=== PATIENT | male | born 1950 | race Caucasian/White ===

== ENCOUNTER 2018-09-17 17:58 | Inpatient (IN) | payer MEDICARE ==
[~2018-09-17] VITALS: Ht 182.9 cm; Wt 81.6 kg
[2018-09-17 20:00] VITALS: BP 143/81
[2018-09-17] MEDS ORDERED: ACETAMINOPHEN 325 MG TABLET PO PRN (20:00)
[2018-09-17] MEDS ORDERED: MAGNESIUM HYDROXIDE 30 ML UDC PO PRN (20:00)
[2018-09-17] MEDS ORDERED: MAG HYDROX/AL HYDROX/SIMETH 30 ML UDC PO PRN (20:00)
[2018-09-17] MEDS ORDERED: clonazePAM 0.5 MG TABLET PO PRN (20:00)
[2018-09-17] MEDS ORDERED: WARF5TAB77 PO (21:03)
[2018-09-17] MEDS ORDERED: ENOX40DI SQ (21:03)
[2018-09-17] MEDS ORDERED: CEFU500T66 PO ×2 (21:03→22:00)
[2018-09-17] MEDS ORDERED: MUPI15CR (21:03)
[2018-09-17] MEDS ORDERED: HYDR-3980 PO (21:03)
[2018-09-17] MEDS ORDERED: FAMO-131 PO (21:03)
[2018-09-17] MEDS ORDERED: FURO-145 PO (21:03)
[2018-09-17] MEDS ORDERED: LISI2.5T2 PO (21:03)
[2018-09-17] MEDS ORDERED: CARV3.12 PO (21:03)
[2018-09-17] MEDS ORDERED: NICO-677 TD (21:03)
[2018-09-17] MEDS ORDERED: PANT40TA2 PO (21:03)
[2018-09-17] MEDS ORDERED: AMOX-430 PO (21:03)
[2018-09-17] MEDS ORDERED: IPRA12.9 IH ×2 (21:03→22:00)
[2018-09-17] MEDS ORDERED: RIVA10TA PO (21:03)
[2018-09-17] MEDS ORDERED: FOLI1TAB16 PO (21:03)
[2018-09-17] MEDS ORDERED: [UNRECOGNIZED DRUG - CODE] PO (22:00)
[2018-09-17] MEDS ORDERED: DIPH-530 PO (22:00)
--- NOTE | 2018-09-18 00:23 | NUR ---
GPS/LEGAL COLLECTOR ADMISSION NOTES: RECEIVED 68YR. OLD MALE ON A 5150 HOLD FOR GD. PT. A/O X2. CONFUSED AND EASILY AGITATED. REDIRECTED. PT. ORIENTED TO UNIT POLICY, PROTOCOLS AND PROCEDURES. CALL ARNOLD WITHIN REACH AND BED ALARM ON FOR SAFETY. BELONGINGS LOGGED AND LOCKED IN PT. CABINET. MEDICAL AND PSYCH MADE AWARE OF PT. ADMISSION TO UNIT.
[2018-09-18 07:12] LABS: BASOPHILS % (AUTO) 0.3 % (0.0-2.0); EOSINOPHILS % (AUTO) 3.6 % (0.0-6.0); HEMATOCRIT 34 % (39-51); LYMPHOCYTES # (AUTO) 1.4 /CMM (0.8-4.8); LYMPHOCYTES % (AUTO) 16.6 % (20.0-44.0); MEAN CORPUSCULAR HGB CONC 33 g/dl (31.0-36.0); MEAN CORPUSCULAR VOLUME 81 fL (80-96); MONOCYTES # (AUTO) 0.8 /CMM (0.1-1.30); MONOCYTES % (AUTO) 9.1 % (2.0-12.0); NEUTROPHILS # (AUTO) 6.1 /CMM (1.8-8.9); NEUTROPHILS % (AUTO) 70.4 % (43.0-81.0); PLATELET COUNT (AUTO) 267 /CMM (150-450); RED BLOOD CELL COUNT(AUTO) 4.11 MIL/uL (4.5-6.0); WHITE BLOOD COUNT (AUTO) 8.7 K/uL (4.3-11.0)
[2018-09-18] MEDS ORDERED: IPRATROPIUM NEB FS 0.5 MG/2.5 ML AMPUL.NEB NEB PRN (07:30)
[2018-09-18 07:40] LABS: ALBUMIN 2.6 g/dL (3.4-5.0); BILIRUBIN,TOTAL 0.4 mg/dL (0.2-1.0); CALCIUM, SERUM 9.3 mg/dL (8.5-10.1); TOTAL PROTEIN, SERUM 7.3 g/dL (6.4-8.2)
[2018-09-18 07:41] LABS: CHOLESTEROL 109 mg/dL (<200); HDL CHOLESTEROL 27 mg/dL (40-60); LDL 75 mg/dL (0-99); TRIGLYCERIDES 68 mg/dL (30-150)
[2018-09-18 08:00] VITALS: BP 109/50
[2018-09-18] MEDS: FOLIC ACID 1 MG TABLET PO SCH (08:40)
[2018-09-18] MEDS: PANTOPRAZOLE 40 MG TABLET.DR PO SCH (08:40)
[2018-09-18] MEDS: NICOTINE PATCH (21MG) 21 MG PATCH.TD24 TD SCH (08:40)
[2018-09-18] MEDS: FAMOTIDINE (20 MG) 20 MG TABLET PO SCH (08:40)
[2018-09-18] MEDS: CEFUROXIME AXETIL 250 MG TABLET PO SCH ×2 (10:01→21:37)
--- NOTE | 2018-09-18 12:30 | NUR ---
INITIAL DISCHARGE PLAN: Patient wishes to be discharged to his home in [place]. Pt did not provide SW will address or additional information. Pt is confused, disoriented, and disorganized. Per hold, pt is homeless and needs placement. SW will help form a safe and proper discharge in collaboration with MD.
[2018-09-18 16:00] VITALS: BP 122/59
[2018-09-18] MEDS: RIVAROXABAN 10 MG TABLET PO SCH (16:16)
[2018-09-18 20:44] VITALS: BP 128/59
[2018-09-18] MEDS: OLANZAPINE 5 MG/TAB.RAPDIS PO SCH (21:37)
[2018-09-18] MEDS ORDERED: OLANZAPINE 5 MG/TAB.RAPDIS PO SCH (22:00)
--- NOTE | 2018-09-19 04:50 | NUR ---
GPS RN NOTE: PATIENT IN STABLE CONDITION, NO SOB, NO ACUTE DISTRESS, BREATHING EVEN AND UNLABORED, ENDORSED FOR CONTINUITY OF CARE
[2018-09-19 08:00] VITALS: BP 129/73
[2018-09-19] MEDS: FOLIC ACID 1 MG TABLET PO SCH (08:36)
[2018-09-19] MEDS: FAMOTIDINE (20 MG) 20 MG TABLET PO SCH (08:36)
[2018-09-19] MEDS: PANTOPRAZOLE 40 MG TABLET.DR PO SCH (08:36)
[2018-09-19] MEDS: NICOTINE PATCH (21MG) 21 MG PATCH.TD24 TD SCH (08:36)
[2018-09-19] MEDS: CEFUROXIME AXETIL 250 MG TABLET PO SCH ×2 (08:40→21:43)
[2018-09-19 16:04] VITALS: BP 123/73
[2018-09-19] MEDS: RIVAROXABAN 10 MG TABLET PO SCH (16:31)
[2018-09-19 20:00] VITALS: BP 140/77
[2018-09-19] MEDS: OLANZAPINE 5 MG/TAB.RAPDIS PO SCH (21:43)
[2018-09-20 08:06] VITALS: BP 131/69
[2018-09-20] MEDS: FAMOTIDINE (20 MG) 20 MG TABLET PO SCH (08:43)
[2018-09-20] MEDS: PANTOPRAZOLE 40 MG TABLET.DR PO SCH (08:43)
[2018-09-20] MEDS: CEFUROXIME AXETIL 250 MG TABLET PO SCH ×2 (08:43→20:52)
[2018-09-20] MEDS: FOLIC ACID 1 MG TABLET PO SCH (08:43)
[2018-09-20] MEDS: NICOTINE PATCH (21MG) 21 MG PATCH.TD24 TD SCH (08:44)
[2018-09-20] MEDS: OLANZAPINE 5 MG/TAB.RAPDIS PO SCH (16:29)
[2018-09-20 16:30] VITALS: BP 133/82
[2018-09-20] MEDS: RIVAROXABAN 10 MG TABLET PO SCH (16:30)
[2018-09-20 20:00] VITALS: BP 120/62
[2018-09-20] MEDS: TEMAZEPAM 7.5 MG CAPSULE PO PRN (20:54)
[2018-09-21 08:00] VITALS: BP 145/75
[2018-09-21] MEDS: OLANZAPINE 5 MG/TAB.RAPDIS PO SCH ×2 (08:41→16:37)
[2018-09-21] MEDS: FAMOTIDINE (20 MG) 20 MG TABLET PO SCH (08:41)
[2018-09-21] MEDS: NICOTINE PATCH (21MG) 21 MG PATCH.TD24 TD SCH (08:41)
[2018-09-21] MEDS: FOLIC ACID 1 MG TABLET PO SCH (08:41)
[2018-09-21] MEDS: PANTOPRAZOLE 40 MG TABLET.DR PO SCH (08:42)
[2018-09-21] MEDS: CEFUROXIME AXETIL 250 MG TABLET PO SCH ×2 (08:44→21:28)
[2018-09-21 16:00] VITALS: BP 116/52
[2018-09-21] MEDS: RIVAROXABAN 10 MG TABLET PO SCH (16:38)
[2018-09-21 20:53] VITALS: BP 104/51
[2018-09-21] MEDS: TEMAZEPAM 7.5 MG CAPSULE PO PRN (21:28)
[2018-09-21] MEDS: OLANZAPINE 5 MG TABLET PO SCH (22:14)
[2018-09-22 08:00] VITALS: BP 122/58
[2018-09-22] MEDS: NICOTINE PATCH (21MG) 21 MG PATCH.TD24 TD SCH (09:00)
[2018-09-22] MEDS: FOLIC ACID 1 MG TABLET PO SCH (09:09)
[2018-09-22] MEDS: OLANZAPINE 5 MG/TAB.RAPDIS PO SCH (09:09)
[2018-09-22] MEDS: PANTOPRAZOLE 40 MG TABLET.DR PO SCH (09:09)
[2018-09-22] MEDS: FAMOTIDINE (20 MG) 20 MG TABLET PO SCH (09:09)
[2018-09-22] MEDS: CEFUROXIME AXETIL 250 MG TABLET PO SCH ×2 (09:10→21:47)
[2018-09-22 16:10] VITALS: BP 103/58
[2018-09-22] MEDS: RIVAROXABAN 10 MG TABLET PO SCH (16:21)
[2018-09-22 20:01] VITALS: BP 129/66
[2018-09-22] MEDS: TEMAZEPAM 7.5 MG CAPSULE PO PRN (21:48)
[2018-09-22] MEDS: OLANZAPINE 5 MG TABLET PO SCH (21:48)
--- NOTE | 2018-09-23 02:06 | NUR ---
WAISTLINE JOINER OVERLOCK NOTES PT WOKE UP AND COMPLAINING OF ABDOMINAL PAIN. MAALOX GIVEN .PT TOLERATED WELL NO ASPIRATION NOTED. WILL CONTINUE MONITORING.
--- NOTE | 2018-09-23 02:10 | NUR ---
SKID ROAD MAN NOTES PT SEEMS ANXIOUS, KLONOPIN PO GIVEN ORDERED. SAFETY PRECAUTION IMPLEMENTED AND OBSERVED. KEPT HIM WARM AND COMFORTABLE AT ALL TIMES. WILL CONTINUE MONITORING.
[2018-09-23 08:00] VITALS: BP 121/73
[2018-09-23] MEDS: PANTOPRAZOLE 40 MG TABLET.DR PO SCH (08:27)
[2018-09-23] MEDS: FOLIC ACID 1 MG TABLET PO SCH (08:27)
[2018-09-23] MEDS: FAMOTIDINE (20 MG) 20 MG TABLET PO SCH (08:27)
[2018-09-23] MEDS: OLANZAPINE 5 MG/TAB.RAPDIS PO SCH (08:27)
[2018-09-23] MEDS: NICOTINE PATCH (21MG) 21 MG PATCH.TD24 TD SCH (08:27)
[2018-09-23] MEDS: CEFUROXIME AXETIL 250 MG TABLET PO SCH ×2 (08:39→21:26)
--- NOTE | 2018-09-23 10:47 | NUR ---
KALEB faxed SNF referral to CJ, hall coordinator at [facility] Address: [address] [place] [address] for review.
--- NOTE | 2018-09-23 10:55 | NUR ---
SW received a call from JAZMIN, neighborhood coordinator at [facility] Address: [address] [place] [address] stating pt has been accepted to the facility.
[2018-09-23 16:00] VITALS: BP 116/58
[2018-09-23] MEDS: RIVAROXABAN 10 MG TABLET PO SCH (16:57)
[2018-09-23 20:00] VITALS: BP 106/58
[2018-09-23] MEDS: OLANZAPINE 5 MG TABLET PO SCH (21:28)
[2018-09-24] MEDS: PANTOPRAZOLE 40 MG TABLET.DR PO SCH (07:28)
[2018-09-24 08:00] VITALS: BP 110/54
[2018-09-24] MEDS: CEFUROXIME AXETIL 250 MG TABLET PO SCH ×2 (08:12→20:33)
[2018-09-24] MEDS: FOLIC ACID 1 MG TABLET PO SCH (08:12)
[2018-09-24] MEDS: NICOTINE PATCH (21MG) 21 MG PATCH.TD24 TD SCH (08:12)
[2018-09-24] MEDS: FAMOTIDINE (20 MG) 20 MG TABLET PO SCH (08:13)
[2018-09-24] MEDS: OLANZAPINE 5 MG/TAB.RAPDIS PO SCH (08:16)
[2018-09-24 16:05] VITALS: BP 135/76
[2018-09-24] MEDS: RIVAROXABAN 10 MG TABLET PO SCH (16:36)
[2018-09-24 20:00] VITALS: BP 117/54
[2018-09-24] MEDS: OLANZAPINE 5 MG TABLET PO SCH (20:33)
[2018-09-25 08:00] VITALS: BP 123/65
[2018-09-25] MEDS: FAMOTIDINE (20 MG) 20 MG TABLET PO SCH (08:46)
[2018-09-25] MEDS: FOLIC ACID 1 MG TABLET PO SCH (08:46)
[2018-09-25] MEDS: PANTOPRAZOLE 40 MG TABLET.DR PO SCH (08:46)
[2018-09-25] MEDS: OLANZAPINE 5 MG/TAB.RAPDIS PO SCH (08:48)
[2018-09-25] MEDS: NICOTINE PATCH (21MG) 21 MG PATCH.TD24 TD SCH (08:48)
--- NOTE | 2018-09-25 12:30 | NUR ---
REPORT GIVEN TO ABELINO /RN ([facility])
--- NOTE | 2018-09-25 12:51 | NUR ---
D/C NOTES PT MEDICALLY CLEARED BY [facility]. PATIENT DENIES ANY SI/HI, VS ARE STABLE AND WITHIN NORMAL RANGE, NO DISTRESS NOTED AT THIS TIME. PT SKIN INTACT. ALL BELONGINGS RETURNED TO THE PATIENT.
--- NOTE | 2018-09-25 13:06 | NUR ---
DISCHARGE NOTE: Pt was discharged at 12:50pm via [facility] trip#[id number] to [facility] Address: [address] [place] [address] . Pt is homeless and has no family to notify. Pts mood was agitated as he did not want to go to the long term with congruent affect. Pt denied suicidal/homicidal ideations and denied visual/auditory hallucinations. Pt will continue psychiatric treatment and address his substance use with Psychiatrist: Dr. Menchaca Address: [address] [address] and be under the care of Full Stack Java Developer: Dr Barrientos Address: [address] [address] [phone]. The multidisciplinary exitcare form was done, printed, signed, and given to the patient.
--- NOTE | 2018-10-09 14:59 | NUR ---
15 DAY SUBSTANCE ABUSE FOLLOW-UP: Excluded due to D/C to SNF.
== END 2018-09-25 12:50 | DRG 885 ==
LOC: GPS 19:16
PROVIDERS: ADMIT Psychiatry & Neurology Psychiatry; ATTEND Psychiatry & Neurology Psychiatry
DX: F29 Unspecified psychosis not due to a substance or known physiological condition (principal); D68.59 Other primary thrombophilia; I82.403 Acute embolism and thrombosis of unspecified deep veins of lower extremity, bilateral; D68.51 Activated protein C resistance; J44.9 Chronic obstructive pulmonary disease, unspecified; F03.90 Unspecified dementia, unspecified severity, without behavioral disturbance, psychotic disturbance, mood disturbance, and anxiety; Z87.01 Personal history of pneumonia (recurrent); Z59.0 Homelessness; D63.8 Anemia in other chronic diseases classified elsewhere; I48.91 Unspecified atrial fibrillation; I25.10 Atherosclerotic heart disease of native coronary artery without angina pectoris; I10 Essential (primary) hypertension; Z72.0 Tobacco use
CPT/HCPCS: 36415; 80053-TC; 80061-TC; 85025-TC; 85610-TC; 87081-TC

== ENCOUNTER 2019-09-28 21:35 | Inpatient (IN) | payer MEDICARE, OTHER ==
[~2019-09-28] VITALS: Ht 182.9 cm; Wt 83.5 kg
[~2019-09-28 21:35] MED LIST: CEFU500T66 PO; DIPH-530 PO; FAMO-131 PO; FOLI1TAB16 PO; IPRA12.9 IH; NICO-677 TD; PANT40TA2 PO; RIVA10TA PO; [UNRECOGNIZED DRUG - CODE] PO
--- NOTE | 2019-09-28 21:35 | NUR ---
BIB PRIVATE AMBULANCE FROM [facility] ADM. PT ON 5150 HOLD. PER REPORT PT WAS AGITATED @ THE FACILITY, PT AWAKE, ALERT, -SOB, NAD NOTED, VSS, PENDING MD AMIN
[2019-09-28 22:22] LABS: BASOPHILS % (AUTO) 0.4 % (0.0-2.0); EOSINOPHILS % (AUTO) 1.6 % (0.0-6.0); HEMATOCRIT 38 % (39-51); HEMOGLOBIN 12.4 g/dL (13.5-17.5); LYMPHOCYTES # (AUTO) 1.2 /CMM (0.8-4.8); LYMPHOCYTES % (AUTO) 12.7 % (20.0-44.0); MEAN CORPUSCULAR HGB CONC 33 g/dl (31.0-36.0); MEAN CORPUSCULAR VOLUME 86 fL (80-96); MONOCYTES # (AUTO) 0.8 /CMM (0.1-1.30); MONOCYTES % (AUTO) 8.4 % (2.0-12.0); NEUTROPHILS # (AUTO) 7.1 /CMM (1.8-8.9); NEUTROPHILS % (AUTO) 76.9 % (43.0-81.0); PLATELET COUNT (AUTO) 193 /CMM (150-450); RED BLOOD CELL COUNT(AUTO) 4.43 MIL/uL (4.5-6.0); WHITE BLOOD COUNT (AUTO) 9.3 K/uL (4.3-11.0)
[2019-09-28 22:25] LABS: ALANINE AMINOTRANSFERASE 22 U/L (12-78); ALBUMIN 3.3 g/dL (3.4-5.0); ALCOHOL, BLOOD < 3 mg/dL (0-0); ALKALINE PHOSPHATASE 90 U/L (46-116); ASPARTATE AMINOTRANSFERASE 25 U/L (15-37); BILIRUBIN,DIRECT 0.2 mg/dL (0.0-0.2); BILIRUBIN,TOTAL 0.5 mg/dL (0.2-1.0); CALCIUM, SERUM 9.1 mg/dL (8.5-10.1); CARBON DIOXIDE 28 mmol/L (21-32); CHLORIDE 104 mmol/L (98-107); CREATININE 1.2 mg/dL (0.6-1.3); GLUCOSE 81 mg/dL (74-106); SODIUM SERUM 140 mmol/L (136-145); TOTAL PROTEIN, SERUM 7.2 g/dL (6.4-8.2); UREA NITROGEN, BLOOD 23 mg/dL (7-18)
[2019-09-28 22:29] LABS: ACETAMINOPHEN 0 ug/ml (10-30); SALICYLATE 1.5 mg/dL (2.8-20.0)
[2019-09-28 22:38] LABS: APPEARANCE,URINE Clear (CLEAR); BILIRUBIN,URINE Negative (NEGATIVE); BLOOD, URINE Negative Ery/uL (NEGATIVE); COLOR,URINE Yellow (YELLOW); KETONES,URINE Negative (NEGATIVE); LEUKOCYTE ESTERASE ,URINE Negative (NEGATIVE); NITRITE, URINE Negative (NEGATIVE); PROTEIN,URINE Negative (NEGATIVE); UGLUCOSE Negative (NEGATIVE)
[2019-09-28] MEDS ORDERED: HALO5TAB8 PO (23:33)
[2019-09-28] MEDS ORDERED: ASPI-1169 PO (23:33)
[2019-09-28] MEDS ORDERED: CLOP75TA15 PO (23:33)
[2019-09-28] MEDS ORDERED: METO25TA6 PO (23:33)
[2019-09-28] MEDS ORDERED: BENZ1TAB7 PO (23:33)
[2019-09-28] MEDS ORDERED: ATOR80TA PO (23:33)
--- NOTE | 2019-09-28 23:33 | NUR ---
REPORT GIVEN TO TERRY AGUIRRE FOR DEVON PT WILL BE TRANSPORTED TO [address] [place] [address]
[2019-09-29] MEDS ORDERED: BLOOD SUGAR DIAGNOSTIC 1 EACH STRIP IN ONE
[2019-09-29] MEDS ORDERED: ACETAMINOPHEN 325 MG TABLET PO PRN
[2019-09-29] MEDS ORDERED: MAG HYDROX/AL HYDROX/SIMETH 30 ML UDC PO PRN
[2019-09-29] MEDS ORDERED: MAGNESIUM HYDROXIDE 30 ML UDC PO PRN
[2019-09-29] MEDS ORDERED: LORAZEPAM 0.5 MG TABLET PO PRN
--- NOTE | 2019-09-29 00:04 | NUR ---
GPS/RN ADMITTED 69 Y/O MALE PATIENT FROM [facility], INITIALLY FROM [facility] ADMITTED TO GPS ON 5150 HOLD, PER HOLD DANGER TO SELF, UNPREDICTABLE BEHAVIOR, AGGRESSIVE TO STAFF. UPON FACE TO FACE ASSESSMENT, PATIENT WAS A&O X1, ANXIOUS, DISORIENTED , DISHEVELED, REFUSED ABOUT THE REASON FOR HIS BEHAVIOR. PATIENT REFUSED THE INITIAL BLOOD SUGAR CHECK, SKIN ASSESSMENT, REFUSED TO CHANGE CLOTHES TO HOSPITAL GOWN, REFUSED TO SIGN ADMISSION CONSENT PAPERS, EXPLAINED ITS RISKS AND BENEFITS,PATIENT VERBALIZED UNDERSTANDING BUT STILL REFUSED, MD AWARE AND NOTIFIED OF THE ADMISSION. THE ADMISSION BELONGINGS AND CONTRABAND WERE DONE. NURSING ASSESSMENT DONE, PATIENT'S RIGHTS DISCUSSED, PROVIDED PATIENT WITH HANDBOOK AND MEDICATIONS GUIDE, ENVIRONMENTAL SAFETY CHECK DONE. ENCOURAGED PATIENT TO VERBALIZE ANY FEELING OF CONCERN TO THE STAFF, ORIENT TO UNIT POLICY, NO ACUTE DISTRESS NOTED AT THIS TIME, VITAL SIGNS WNL, DENIES ANY PAIN, WILL CONTINUE TO MONITOR FOR Q 15 SAFETY AND BEHAVIOR.
[2019-09-29 00:40] VITALS: BP 134/80
--- NOTE | 2019-09-29 02:01 | NUR ---
GPS/RN CALLED AND SPOKE TO MANOJ ALVAREZ NP, RE: HOME MEDS RECONCILIATION.
[2019-09-29] MEDS: BENZTROPINE MESYLATE (1 MG) 1 MG TABLET PO SCH ×5 (02:30→16:25)
[2019-09-29] MEDS: ATORVASTATIN 40 MG TABLET PO SCH ×3 (02:30→22:09)
--- NOTE | 2019-09-29 06:35 | NUR ---
GPS/RN PER FILM PROCESSING SUPERVISOR, PATIENT REFUSED BLOOD DRAW. WILL ENDORSE TO NEXT RN TO F/U.
[2019-09-29 08:00] VITALS: BP 124/64
[2019-09-29] MEDS: CLOPIDOGREL BISULFATE 75 MG TABLET PO SCH (08:47)
[2019-09-29] MEDS: ASPIRIN 81 MG TAB.CHEW PO SCH (08:47)
[2019-09-29] MEDS: METOPROLOL TARTRATE 25 MG TABLET PO SCH ×2 (08:47→16:37)
[2019-09-29] MEDS: RIVAROXABAN 10 MG TABLET PO SCH (08:52)
[2019-09-29 12:30] LABS: BILIRUBIN,TOTAL 0.5 mg/dL (0.2-1.0); CALCIUM, SERUM 8.7 mg/dL (8.5-10.1); CREATININE 1.1 mg/dL (0.6-1.3); POTASSIUM 3.7 mmol/L (3.5-5.1); TOTAL PROTEIN, SERUM 6.5 g/dL (6.4-8.2)
--- NOTE | 2019-09-29 14:20 | NUR ---
Facility Contact: KALEB called [facility] ([phone]) and spoke to Faustina in the Admissions Department who stated that she is unsure if the pt can return and stated that she would need to speak to her see supervisor and then will call the SW back.
--- NOTE | 2019-09-29 14:50 | NUR ---
Group Note: SW encouraged pt to participate in group on 09/29/19 at 2pm discussing discharge planning. Pt appeared to be confused and disoriented and was unable to participate group therapy. Pt stated that he does not know where he is or where he came from. SW stated that he came from a SNF and the SW will assist in discharging him to one.
--- NOTE | 2019-09-29 15:13 | NUR ---
Initial Discharge Plan: Pt currently resides at [facility] located at [address] [address]; ([phone]). Per pt, he is uncertain about where he wants to be discharged to. Per Faustina at the facility, she is uncertain if the locker room supervisor will accept the pt back. SW will work with the MD and the pt regarding appropriate discharge planning. SW will form a safe and proper discharge.
[2019-09-29 16:00] VITALS: BP 133/80
[2019-09-29] MEDS: HALOPERIDOL 5 MG TABLET PO SCH (16:26)
[2019-09-29 19:38] VITALS: BP 122/70
--- NOTE | 2019-09-30 02:42 | NUR ---
PT REFUSED PM MED LIPITOR 40MG 2 TABS 80MG. REFUSED SKIN ASSESSMENT. ISOLATIVE AND WITHDRAWN TO ROOM. WILL CONTINUE TO MONITOR.
[2019-09-30 08:00] VITALS: BP 136/67
[2019-09-30] MEDS: CLOPIDOGREL BISULFATE 75 MG TABLET PO SCH (08:06)
[2019-09-30] MEDS: ASPIRIN 81 MG TAB.CHEW PO SCH (08:06)
[2019-09-30] MEDS: HALOPERIDOL 5 MG TABLET PO SCH ×2 (08:06→16:32)
[2019-09-30] MEDS: BENZTROPINE MESYLATE (1 MG) 1 MG TABLET PO SCH ×3 (08:06→16:32)
[2019-09-30] MEDS: METOPROLOL TARTRATE 25 MG TABLET PO SCH ×2 (08:06→16:33)
[2019-09-30] MEDS: RIVAROXABAN 10 MG TABLET PO SCH (08:10)
--- NOTE | 2019-09-30 11:25 | NUR ---
Facility Contact: SW called [facility] ([phone]) and spoke to Faustina who stated that she still needs to verify with her special services supervisor. SW urged her to speak to the special services supervisor as soon as possible and inform the SW.
--- NOTE | 2019-09-30 14:37 | NUR ---
Facility Contact: Ivan from [facility] ([phone]) contacted the and stated that the pt will have to be evaluated to return to their facility. He stated that the pt will be accepted to alternative [facility] facilities because he has Medicare days and does not require Part B to be admitted.
[2019-09-30 16:00] VITALS: BP 127/79
[2019-09-30 20:00] VITALS: BP 117/67
[2019-09-30] MEDS: ATORVASTATIN 40 MG TABLET PO SCH (21:43)
[2019-09-30] MEDS: TEMAZEPAM 7.5 MG CAPSULE PO PRN (21:44)
[2019-09-30 22:11] VITALS: BP 117/67
[2019-10-01 08:00] VITALS: BP 123/51
[2019-10-01] MEDS: ASPIRIN 81 MG TAB.CHEW PO SCH (08:06)
[2019-10-01] MEDS: HALOPERIDOL 5 MG TABLET PO SCH ×2 (08:06→17:07)
[2019-10-01] MEDS: BENZTROPINE MESYLATE (1 MG) 1 MG TABLET PO SCH ×3 (08:06→17:07)
[2019-10-01] MEDS: METOPROLOL TARTRATE 25 MG TABLET PO SCH ×2 (08:06→16:58)
[2019-10-01] MEDS: CLOPIDOGREL BISULFATE 75 MG TABLET PO SCH (08:07)
[2019-10-01] MEDS: RIVAROXABAN 10 MG TABLET PO SCH (08:07)
--- NOTE | 2019-10-01 10:35 | NUR ---
WOUND CARE CONSULT: PT PRESENTS CONTINENT AND INDEPENDENT WITH BED MOBILITY AND HAVING RT HAND SKIN TEAR, PRESENT ON ADMISSION. RECOMMENDATIONS MADE FOR WOUND CARE. DISCUSSED WITH NURSING STAFF. WILL SEE PRN. ZUNIGA IN AGREEMENT WITH PLAN OF CARE. CURRENT PETROS SCORE IS 17. Addendum: 10/01/19 at 1036 by JERED ROMAN WNDNU Amended: Links added.
[2019-10-01 16:00] VITALS: BP 100/58
[2019-10-01 20:12] VITALS: BP 100/52
[2019-10-01] MEDS: ATORVASTATIN 40 MG TABLET PO SCH (21:14)
[2019-10-01] MEDS: TEMAZEPAM 7.5 MG CAPSULE PO PRN (21:17)
[2019-10-02 08:00] VITALS: BP 117/60
[2019-10-02] MEDS: HALOPERIDOL 5 MG TABLET PO SCH ×2 (09:00→13:28)
[2019-10-02] MEDS: METOPROLOL TARTRATE 25 MG TABLET PO SCH ×2 (10:44→12:31)
[2019-10-02] MEDS: ASPIRIN 81 MG TAB.CHEW PO SCH ×3 (10:45→13:26)
[2019-10-02] MEDS: RIVAROXABAN 10 MG TABLET PO SCH (10:45)
[2019-10-02] MEDS: CLOPIDOGREL BISULFATE 75 MG TABLET PO SCH ×3 (10:46→13:25)
[2019-10-02] MEDS: BENZTROPINE MESYLATE (1 MG) 1 MG TABLET PO SCH ×3 (10:46→17:52)
--- NOTE | 2019-10-02 14:41 | NUR ---
Patient remains isolative to room and staying in bed, compliant with morning medication regimen. Breakfast and lunch intake was 90 to 100%, encouraged to sit on side of bed for lunch, complied for short interval. Some confusion noted but no aggressive behavior and no throwing of objects at others. Encouraged to sit up in a chair for a short interval, was agreeable but didn't sit up will encourage to sit up for dinner. Will monitor for safety and changes in behavior.
[2019-10-02 16:00] VITALS: BP 121/69
[2019-10-02 20:58] VITALS: BP 112/60
[2019-10-02] MEDS: ATORVASTATIN 40 MG TABLET PO SCH (21:40)
[2019-10-02] MEDS: TEMAZEPAM 7.5 MG CAPSULE PO PRN (22:48)
[2019-10-03 08:00] VITALS: BP 134/57
[2019-10-03] MEDS: BENZTROPINE MESYLATE (1 MG) 1 MG TABLET PO SCH ×3 (09:41→17:54)
[2019-10-03] MEDS: HALOPERIDOL 5 MG TABLET PO SCH ×2 (09:41→17:54)
[2019-10-03] MEDS: RIVAROXABAN 10 MG TABLET PO SCH (09:41)
[2019-10-03] MEDS: METOPROLOL TARTRATE 25 MG TABLET PO SCH ×2 (09:41→17:00)
[2019-10-03 16:00] VITALS: BP 100/57
[2019-10-03 19:58] VITALS: BP 110/52
[2019-10-03] MEDS: TEMAZEPAM 7.5 MG CAPSULE PO PRN (21:28)
[2019-10-03] MEDS: ATORVASTATIN 40 MG TABLET PO SCH (21:28)
--- NOTE | 2019-10-03 22:04 | NUR ---
patient refused skin picture to be taken .
[2019-10-04 08:00] VITALS: BP 110/53
[2019-10-04] MEDS: METOPROLOL TARTRATE 25 MG TABLET PO SCH ×2 (09:00→17:31)
[2019-10-04] MEDS: RIVAROXABAN 10 MG TABLET PO SCH (09:02)
[2019-10-04] MEDS: BENZTROPINE MESYLATE (1 MG) 1 MG TABLET PO SCH ×3 (09:03→17:31)
[2019-10-04] MEDS: ASPIRIN 81 MG TAB.CHEW PO SCH (09:03)
[2019-10-04] MEDS: CLOPIDOGREL BISULFATE 75 MG TABLET PO SCH (09:03)
[2019-10-04] MEDS: HALOPERIDOL 5 MG TABLET PO SCH ×2 (09:03→17:31)
--- NOTE | 2019-10-04 09:25 | NUR ---
SNF Referral: KALEB faxed a referral to [facility] with attn to Werner to the fax number: [phone].
[2019-10-04 16:00] VITALS: BP 130/67
--- NOTE | 2019-10-04 19:25 | NUR ---
RN NOTES: PT. REFUSED SKIN ASSESSMENT AND PICTURES TO BE TAKEN , VISIBAL AREA NOTED ON RIGHT ARM/ HAND, LEFT ARM/HAND SCRATCHES SCABS SKIN DISCOLORATIONS AND FORE HEAD DRYNESS AND REDNESS, BUT PT. STRONGLY REFUSING FULL BODY SKIN ASSEMENT, ENCOURAGED X 3 STILL REFUSED,WILL CONTINUITY WITH CARE.
[2019-10-04 20:33] VITALS: BP 123/72
[2019-10-04] MEDS: ATORVASTATIN 40 MG TABLET PO SCH (21:38)
[2019-10-04] MEDS: TEMAZEPAM 7.5 MG CAPSULE PO PRN (23:16)
[2019-10-05 08:00] VITALS: BP 115/66
[2019-10-05] MEDS: ASPIRIN 81 MG TAB.CHEW PO SCH (08:23)
[2019-10-05] MEDS: HALOPERIDOL 5 MG TABLET PO SCH ×2 (08:23→17:50)
[2019-10-05] MEDS: BENZTROPINE MESYLATE (1 MG) 1 MG TABLET PO SCH ×4 (08:23→17:52)
[2019-10-05] MEDS: METOPROLOL TARTRATE 25 MG TABLET PO SCH ×2 (08:25→17:00)
[2019-10-05] MEDS: CLOPIDOGREL BISULFATE 75 MG TABLET PO SCH (08:37)
[2019-10-05] MEDS: RIVAROXABAN 10 MG TABLET PO SCH (08:37)
[2019-10-05 16:00] VITALS: BP 117/59
--- NOTE | 2019-10-05 16:10 | NUR ---
SNF Contact: Roxanne ([phone]) from [facility] stated that the pt was not accepted to their facility due to aggressive behavior. SW stated that the pt has not been aggressive for over one week.
[2019-10-05 20:19] VITALS: BP 105/45
[2019-10-05] MEDS: ATORVASTATIN 40 MG TABLET PO SCH (21:20)
[2019-10-06 08:00] VITALS: BP 106/64
[2019-10-06] MEDS: BENZTROPINE MESYLATE (1 MG) 1 MG TABLET PO SCH ×3 (08:07→16:12)
[2019-10-06] MEDS: METOPROLOL TARTRATE 25 MG TABLET PO SCH ×2 (08:09→16:12)
[2019-10-06] MEDS: HALOPERIDOL 5 MG TABLET PO SCH ×2 (08:10→16:12)
[2019-10-06] MEDS: CLOPIDOGREL BISULFATE 75 MG TABLET PO SCH (08:10)
[2019-10-06] MEDS: ASPIRIN 81 MG TAB.CHEW PO SCH (08:10)
[2019-10-06] MEDS: RIVAROXABAN 10 MG TABLET PO SCH (08:18)
--- NOTE | 2019-10-06 13:07 | NUR ---
SNF Referral: KALEB faxed a referral to [facility] with attn to Antwon and JAZMIN to the fax number: [phone].
--- NOTE | 2019-10-06 15:15 | NUR ---
Group Note: SW encouraged pt to participate in group on 10/07/19 at 2pm discussing discharge planning. Pt appeared to be confused and disoriented and was unable to participate group therapy. Pt stated that he was told that he came from a facility called [facility] but the SW informed him that he cannot return there. SW stated that the pt was accepted to [facility] and stated that he will be discharged the following day. Pt stated that he has a home in [place] but the SW stated that the discharge recommendation is for him to be placed in a higher level of care compared to his home with self care. Addendum: 10/07/19 at 0855 by MONICA MANUEL 10/06/19
[2019-10-06 16:00] VITALS: BP 120/75
--- NOTE | 2019-10-06 16:17 | NUR ---
SNF Contact: Micaela ([phone]) from [facility] called the SW and stated that the pt was accepted to their facility. SW stated that the pt will be discharged the following day.
[2019-10-06 20:04] VITALS: BP 105/51
[2019-10-06] MEDS: ATORVASTATIN 40 MG TABLET PO SCH (21:42)
[2019-10-06 22:00] VITALS: BP 110/65
--- NOTE | 2019-10-07 00:01 | NUR ---
RN NOTES : PT. C/O ANXIETY , RESTLESS, ATIVAN 0.5 MG PO PRN GIVEN PER PT. REQUEST , WILL CONTINUE TO MONITOR.
[2019-10-07 08:00] VITALS: BP 107/52
[2019-10-07] MEDS: ASPIRIN 81 MG TAB.CHEW PO SCH (08:39)
[2019-10-07] MEDS: CLOPIDOGREL BISULFATE 75 MG TABLET PO SCH (08:39)
[2019-10-07 08:40] VITALS: BP 107/52
[2019-10-07] MEDS: BENZTROPINE MESYLATE (1 MG) 1 MG TABLET PO SCH ×2 (08:40→12:43)
[2019-10-07] MEDS: METOPROLOL TARTRATE 25 MG TABLET PO SCH (08:40)
[2019-10-07] MEDS: HALOPERIDOL 5 MG TABLET PO SCH (08:40)
[2019-10-07] MEDS: RIVAROXABAN 10 MG TABLET PO SCH (08:44)
--- NOTE | 2019-10-07 09:04 | NUR ---
DR. PARTIDA GAVE AN ORDER TO D/C HOLD AND D/C TO [facility]. TO SAME AND TO CONTINUE PRN FOR 10 DAYS AND TO FOLLOW UP WITH PSYCH AND MEDICAL DOCOTRS.
--- NOTE | 2019-10-07 13:21 | NUR ---
Discharge Note: Pt was discharged to [facility] ([facility]) located at [address] [place] [address]; ([phone]). Pt was transported via [facility] at 2PM. Pt does not have any family to contact. Upon discharge, the pt appeared to be in a manic mood and presented with a distressed affect. Pt appeared to be paranoid and stated, My father is at my house and he wants to hurt me. Pt denied both suicidal and homicidal ideation as well as auditory and visual hallucinations. Pt will continue to be under the care of his psychiatrist, Dr. Menchaca, [place] at [address] [place] [address]; and his restaurant operations manager, Dr. Barrientos, located at [address] [place] [address]; .
--- NOTE | 2019-10-07 15:00 | NUR ---
PATIENT IS A 69 YEAR OLD MALE DISCHARGED TO [facility] ([facility]). PATIENT IS IN STABLE CONDITION. VSS. NO ACUTE DISTRESS NOTED. NO COMPLAINTS. COMPLIANT WITH MEDICATION MANAGEMENT. COOPERATIVE WITH PLAN OF CARE. PSYCHIATRIC TREATMENT PLANS MET. MEDICAL TREATMENT PLANS DEFERRED FOR CONTINUAL MONITORING. DENIES SI/HI VAH AT THE TIME OF DISCHARGE. PATIENT REFUSED SKIN ASSESSMENT. RECONCILED MEDICATIONS WITH DR PARTIDA AND DR GUY. DISCHARGE PAPERWORK SIGNED. TO FOLLOW UP WITH PSYCHIATRIST AND LEADERSHIP PROGRAM INTERNSHIP WITHIN 1 WEEK. PATIENT LEFT THE [facility] VIA AMBULANCE. TRIP [phone].
== END 2019-10-07 15:00 | DRG 885 ==
LOC: ER 21:36 → GPS 22:47
PROVIDERS: ADMIT Psychiatry & Neurology Psychiatry; ATTEND Nurse Practitioner Acute Care
DX: F29 Unspecified psychosis not due to a substance or known physiological condition (principal); F03.90 Unspecified dementia, unspecified severity, without behavioral disturbance, psychotic disturbance, mood disturbance, and anxiety; I25.10 Atherosclerotic heart disease of native coronary artery without angina pectoris; E11.9 Type 2 diabetes mellitus without complications; Z86.718 Personal history of other venous thrombosis and embolism; I48.0 Paroxysmal atrial fibrillation; Z87.01 Personal history of pneumonia (recurrent); I25.2 Old myocardial infarction; E78.00 Pure hypercholesterolemia, unspecified; J44.9 Chronic obstructive pulmonary disease, unspecified; I10 Essential (primary) hypertension
CPT/HCPCS: 36415; 80048-TC; 80053-TC; 80061-TC; 80076-TC; 80305; 81000-TC; 85025-TC; 87081-TC; 97116-TC; 97530-TC; G0480

== ENCOUNTER 2020-05-28 09:14 | Inpatient (IN) | payer MEDICARE, OTHER ==
[~2020-05-28] VITALS: Ht 170.2 cm; Wt 103.4 kg
[~2020-05-28 09:14] MED LIST changes: +ASPI-1169 PO; +ATOR80TA PO; +BENZ1TAB7 PO; -CEFU500T66 PO; +CLOP75TA15 PO; -DIPH-530 PO; -FAMO-131 PO; -FOLI1TAB16 PO; +HALO5TAB8 PO; -IPRA12.9 IH; +METO25TA6 PO; -NICO-677 TD; -PANT40TA2 PO; -[UNRECOGNIZED DRUG - CODE] PO
--- NOTE | 2020-05-28 09:37 | NUR ---
patient bib private ambulance from [facility], c/o left leg edema and sent by PMD due to DVT and for further evaluation. On room air, breathing evenly and unlabored. connected to the monitor and pulse ox. kept comfortable, will continue to monitor accordingly.
--- NOTE | 2020-05-28 09:38 | NUR ---
IV access initiated and blood drawned and sent to lab
[2020-05-28 09:42] LABS: BASOPHILS % (AUTO) 0.2 % (0.0-2.0); EOSINOPHILS % (AUTO) 3.8 % (0.0-6.0); HEMATOCRIT 38 % (39-51); HEMOGLOBIN 12.4 g/dL (13.5-17.5); LYMPHOCYTES # (AUTO) 1.5 /CMM (0.8-4.8); LYMPHOCYTES % (AUTO) 21.5 % (20.0-44.0); MEAN CORPUSCULAR HGB CONC 33 g/dl (31.0-36.0); MEAN CORPUSCULAR VOLUME 88 fL (80-96); MONOCYTES # (AUTO) 0.7 /CMM (0.1-1.30); MONOCYTES % (AUTO) 10.9 % (2.0-12.0); NEUTROPHILS # (AUTO) 4.3 /CMM (1.8-8.9); NEUTROPHILS % (AUTO) 63.6 % (43.0-81.0); PLATELET COUNT (AUTO) 178 /CMM (150-450); RED BLOOD CELL COUNT(AUTO) 4.34 MIL/uL (4.5-6.0); WHITE BLOOD COUNT (AUTO) 6.8 K/uL (4.3-11.0)
[2020-05-28] MEDS ORDERED: ASPI-1420 PO (09:43)
[2020-05-28 09:49] LABS: CALCIUM, SERUM 9.2 mg/dL (8.5-10.1); CREATININE 1.3 mg/dL (0.6-1.3); POTASSIUM 4.1 mmol/L (3.5-5.1)
--- NOTE | 2020-05-28 09:49 | NUR ---
ulrasound tech at bedside for exam
--- NOTE | 2020-05-28 10:09 | NUR ---
called [facility] for admission
--- NOTE | 2020-05-28 10:49 | NUR ---
got bed 250
[2020-05-28] MEDS ORDERED: HEPARIN INFUSION/D5W 500 ML IV PRN (11:00)
--- NOTE | 2020-05-28 11:01 | NUR ---
report given to Nallely AGUIRRE for dewayne
--- NOTE | 2020-05-28 11:22 | NUR ---
COVID TEST: NEGATIVE
[2020-05-28] MEDS ORDERED: HEPARIN SODIUM, PORCINE 5000 UNITS/1 ML VIAL ONE (11:26)
[2020-05-28] MEDS ORDERED: HEPARIN SODIUM, PORCINE 5000 UNITS/1 ML VIAL IV ONE (11:30)
[2020-05-28] MEDS ORDERED: ACETAMINOPHEN 325 MG TABLET PO PRN (11:30)
[2020-05-28] MEDS ORDERED: HYDROCODONE/APAP 5/325MG TABLET PO PRN (11:30)
[2020-05-28] MEDS ORDERED: ONDANSETRON HCL/PF 4 MG/2 ML VIAL IVP PRN (11:30)
[2020-05-28] MEDS ORDERED: MAG HYDROX/AL HYDROX/SIMETH 30 ML UDC PO PRN (11:30)
[2020-05-28] MEDS ORDERED: Z GUARD REMEDY 2 OZ OINT TP PRN (11:30)
[2020-05-28] MEDS ORDERED: MAGNESIUM HYDROXIDE 30 ML UDC PO PRN (11:30)
[2020-05-28 11:54] LABS: ALBUMIN 3.5 g/dL (3.4-5.0); BILIRUBIN,DIRECT 0.1 mg/dL (0.0-0.2); BILIRUBIN,TOTAL 0.5 mg/dL (0.2-1.0); TOTAL PROTEIN, SERUM 7.3 g/dL (6.4-8.2)
--- NOTE | 2020-05-28 11:55 | NUR ---
Wheeled patient via gurney accompanied by RN and emt in no distress. RN at bedside to assume care.
[2020-05-28] MEDS ORDERED: DEXTROSE 50%-WATER 50 ML DISP.SYRIN IV PRN (12:00)
--- NOTE | 2020-05-28 12:00 | NUR ---
JR. JAVA DEVELOPER NOTES REC'D PT FROM ER W/DX LEFT LOWER LEG DVT, HEPARIN DRIP ALREADY STARTED BY CREDIT ASSESSMENT ANALYST AT 1800 UNITS/KG ADMITTED UNDER THE CARE OF DR DUARTE, A&O X2 W/CONFUSION ON ROOM AIR NO SOB NOTED SAT=98% ON TELE MONITOR A-FIB HR 50, BODY CHECK DONE WOUND [place] ORDERED LEFT AC HEPLOCK INTACT AND FLUSH WELL, BED IN LOWEST AND LOCKED POSITION SAFETY MEASURES TAKEN, VITAL SIGNS TAKEN, BELONGING LIST DONE BY CT SCAN TECH CALL LIGHT W/IN REACH, HOSPITAL ORIENTATION DONE PLAN OF CARE DISCUSSED W/PATIENT WILL CONT TO MONITOR
[2020-05-28 12:58] VITALS: BP 103/40
[2020-05-28] MEDS ORDERED: PNEUMOCOCCAL 23-VAL P-SAC VAC 0.5 ML VIAL SQ ONE (13:00)
[2020-05-28] MEDS: BENZTROPINE MESYLATE (1 MG) 1 MG TABLET PO SCH ×2 (13:19→16:50)
[2020-05-28] MEDS: BLOOD SUGAR DIAGNOSTIC 1 EACH STRIP IN SCH ×3 (13:21→23:10)
--- NOTE | 2020-05-28 15:21 | NUR ---
KILN DOOR BUILDER NOTE PCR TEST FOR COVID TAKEN, SENT TO LAB
[2020-05-28 16:00] VITALS: BP 130/40
--- NOTE | 2020-05-28 16:16 | NUR ---
COORDINATOR VOLUNTEER SERVICES NOTES CALLED TIRE WORKER TERESA GRULLON TO NOTIFY PT HR A-FIB 45-50 AND ASK TO HOLD METOPROLOL MEDICATION AT THIS TIME, AND PLAVIX DUE TO PT BEING ON HEPARIN DRIP. PER TIRE WORKER OK TO HOLD FOR NOW ORDERED CARRIED OUT
[2020-05-28] MEDS: HALOPERIDOL 5 MG TABLET PO SCH (16:51)
[2020-05-28] MEDS ORDERED: MISCELLANEOUS MED 1 EA EA XX ONE (17:00)
[2020-05-28] MEDS ORDERED: METOPROLOL TARTRATE 25 MG TABLET PO SCH (17:00)
--- NOTE | 2020-05-28 17:34 | NUR ---
SOYFREEZE OPERATOR NOTE CALLED TO DR CHAUDHARI , VERIFIED PLAVIX ORDER ,OK TO D\C PLAVIX ,STOP HEPARIN DRIP , WILL START ON LOVENOX PER DR CHAUDHARI ORDER
--- NOTE | 2020-05-28 17:47 | NUR ---
CALL CENTER RN NOTES PER DR DE LA TORRE HEPARIN DRIP WAS STOPPED, NO S/S OF BLEEDING NOTED, PT EATING DINNER FEEDING HIMSELF, ALL NEEDS ATTENDED.
--- NOTE | 2020-05-28 18:30 | NUR ---
CUTTER BARREL DRUM NOTES PT ALL NEEDS ATTENDED NO SOB NOTED OR NO DISTRESS NOTED, ATE DINNER, IV LEFT AC HEPLOCK INTACT PATENT AND FLUSHED WELL. RESTING COMFORTABLY CALL LIGHT W/IN REACH CONTINUE TO ELEVATE LEG, WILL CONT TO MONITOR
[2020-05-28 20:00] VITALS: BP 98/50
[2020-05-28] MEDS: ENOXAPARIN SODIUM 100 MG/ML DISP.SYRIN SQ SCH (21:04)
[2020-05-28] MEDS: INSULIN REGULAR, HUMAN 100 UNIT/ML 3 ML VIAL SQ PRN (23:10)
[2020-05-29] VITALS: BP 125/65
[2020-05-29 04:00] VITALS: BP 146/103
[2020-05-29 04:33] LABS: BASOPHILS % (AUTO) 0.4 % (0.0-2.0); EOSINOPHILS % (AUTO) 3.5 % (0.0-6.0); HEMATOCRIT 38 % (39-51); HEMOGLOBIN 12.6 g/dL (13.5-17.5); LYMPHOCYTES # (AUTO) 1.3 /CMM (0.8-4.8); LYMPHOCYTES % (AUTO) 21.5 % (20.0-44.0); MEAN CORPUSCULAR HGB CONC 33 g/dl (31.0-36.0); MEAN CORPUSCULAR VOLUME 87 fL (80-96); MONOCYTES # (AUTO) 0.6 /CMM (0.1-1.30); MONOCYTES % (AUTO) 9.5 % (2.0-12.0); NEUTROPHILS # (AUTO) 4.1 /CMM (1.8-8.9); NEUTROPHILS % (AUTO) 65.1 % (43.0-81.0); PLATELET COUNT (AUTO) 171 /CMM (150-450); RED BLOOD CELL COUNT(AUTO) 4.38 MIL/uL (4.5-6.0); WHITE BLOOD COUNT (AUTO) 6.3 K/uL (4.3-11.0)
[2020-05-29 04:48] LABS: CALCIUM, SERUM 9.1 mg/dL (8.5-10.1); CREATININE 1.1 mg/dL (0.6-1.3); MAGNESIUM 2.1 mg/dL (1.8-2.4); PHOSPHORUS 3.2 mg/dL (2.5-4.9); POTASSIUM 4.1 mmol/L (3.5-5.1)
[2020-05-29 05:24] LABS: THYROID STIMULATING HORMONE 4.073 uIU/mL (0.358-3.74)
--- NOTE | 2020-05-29 07:01 | NUR ---
WAN RN NOTES RECEIVED REPORT FROM ICU .PT IN ICU. VS WNL. NO FEVER. ALERT AND ORIENTED X2. RAC# 18 SALINE LOCK, IS FLUSHING WELL, INTACT AND NO SIGN OF INFILTRATION. LABS ARE WITHIN NORMAL. WILL TRANSFER PT TO WAN. PT IS STABLE TO TRANSFER PER ACLS PROTOCOL. COVID 19 IS PENDING. SAFETY MEASUREMENTS ARE IMPLEMENTED. BED IS IN THE LOWEST POSITION. WILL CONTINUE TO MONITOR.
[2020-05-29 08:00] VITALS: BP 106/50
[2020-05-29] MEDS ORDERED: CLOPIDOGREL BISULFATE 75 MG TABLET PO SCH (09:00)
[2020-05-29] MEDS: HALOPERIDOL 5 MG TABLET PO SCH ×2 (09:48→17:07)
[2020-05-29] MEDS: BLOOD SUGAR DIAGNOSTIC 1 EACH STRIP IN SCH ×4 (09:48→21:08)
[2020-05-29] MEDS: BENZTROPINE MESYLATE (1 MG) 1 MG TABLET PO SCH ×3 (09:48→17:07)
[2020-05-29] MEDS: ASPIRIN EC 81 MG TABLET.DR PO SCH (09:48)
[2020-05-29] MEDS: ENOXAPARIN SODIUM 100 MG/ML DISP.SYRIN SQ SCH ×2 (09:49→21:13)
--- NOTE | 2020-05-29 11:04 | NUR ---
WAN RN NOTES PT IS NEGATIVE COVID 19 WILL TRANSFER TO [facility] TO 306 ROOM WILL GIVE REPORT FIRST.
[2020-05-29 12:00] VITALS: BP 122/68
--- NOTE | 2020-05-29 13:58 | NUR ---
WAN RN NOTES GAVE REPORT TO RAMIRO IN MED SURGE WILL TRANSFER PT TO 306.PT VS WNL. WILL TRANSFER WITH ACLS PROTOCOL.SAFETY MEASUREMENTS ARE IMPLEMENTED. BED IS IN THE LOWEST POSITION. SIDE RAILS ARE UP X2.
--- NOTE | 2020-05-29 14:15 | NUR ---
RETAIL BRANCH MANAGER NOTES RECEIVED PATIENT FROM WAN NURSE. ORIENTED PATIENT TO ROOM ,CALL LIGHT AND UNIT. NO SOB. DENIES ANY C/O PAIN NOR DISCOMFORT AT THIS TIME. ON TELE MONITORING A-FIB WITH HR OF 69. RIGHT AC SL #18 INTACT AND PATENT. BED IN LOWEST POSITION, LOCKED. BED ALARM ON. CALL LIGHT WITHIN REACH.
[2020-05-29 16:00] VITALS: BP 122/57
[2020-05-29] MEDS: INSULIN REGULAR, HUMAN 100 UNIT/ML 3 ML VIAL SQ PRN (17:14)
--- NOTE | 2020-05-29 18:49 | NUR ---
ROLL DOUGH DIVIDER NOTES PATIENT RESTING COMFORTABLY IN BED WATCHING TV. ALERT AND ORIENTED X1-2. PATIENT CONFUSED. PATIENT REMOVES LEADS AND USES IT A REMOTE CONTROL DESPITE OF FREQUENT REMINDERS AND RE-ORIENTATION DONE. NO S/S OF RESPIRATORY DISTRESS. DENIES ANY C/O PAIN NOR DISCOMFORT AT THIS TIME. REMAIN ON TELE MONITORING CONTROLLED A-FIB. RIGHT AC SL #18 INTACT AND PATENT. BED IN LOWEST POSITION, LOCKED. BED ALARM ON. CALL LIGHT WITHIN REACH. IN NO APPARENT DISTRESS.
--- NOTE | 2020-05-29 19:27 | NUR ---
TELE/RN OPENING NOTES PATIENT RESTING IN BED,ALERT, ORIENTED X2, ON ROOM AIR, ALERT X2, ON LOVENOX, WITH POSITIVE DVT OM LEFT LEG, PATIENT CAN BE ASSISTED TO BATHROOM BUT WITH REDIRECTION , CONTINENT AT TIMES,WITH MULTIPLE REDNESS ON LOWER EXTREMITIES, PATIENT REQUIRE ASSISTANCE IN FEEDING WITH SUPERVISION, IV SITE ON RIGHT AC GAUGE 18 PATENT, WITH NEEDED PAIN MEDICATION, WILL MONITOR AN BED LOCKED, CALL LIGHTS WITHIN REACH, WILL MONITOR.AND CONTINUE CARE.
[2020-05-29 20:00] VITALS: BP 127/61
[2020-05-29] MEDS ORDERED: ATORVASTATIN 40 MG TABLET PO SCH (22:00)
[2020-05-30] VITALS: BP_SYST 131; BP_DIAS 69; BP_DIAS 74
[2020-05-30 02:00] VITALS: BP 146/74
[2020-05-30 03:54] VITALS: BP 146/74
[2020-05-30 04:00] VITALS: BP 146/74
--- NOTE | 2020-05-30 06:15 | NUR ---
306-2TELE/RN NOTES PATIENT ABLE TO SLEEP FEW HOURS, ALERT, ORIENTED X2, ReDIRECTED AND ASSISTED FOR SAFETY, BED LOCKED, CALL LIGHTS, BED ALARM N. ATTENDED ALL NEEDS,REPOSITIONED FOR COMFORT,MONITORED FOR SAFETY, MONITORED HYPO/HYPERGLYCEMIA, WILL ENDORSE TO AM RN FOR, DEVON. TELE RYTHM AFIB CONTROLLED,
[2020-05-30] MEDS: BLOOD SUGAR DIAGNOSTIC 1 EACH STRIP IN SCH ×2 (06:20→12:23)
[2020-05-30 08:00] VITALS: BP 133/63
[2020-05-30] MEDS ORDERED: FERROUS SULFATE (325 MG) 325 MG/TAB TABLET PO SCH (09:00)
[2020-05-30] MEDS: ENOXAPARIN SODIUM 100 MG/ML DISP.SYRIN SQ SCH (09:10)
[2020-05-30] MEDS: ASPIRIN EC 81 MG TABLET.DR PO SCH (09:11)
[2020-05-30] MEDS: HALOPERIDOL 5 MG TABLET PO SCH (09:11)
[2020-05-30] MEDS: BENZTROPINE MESYLATE (1 MG) 1 MG TABLET PO SCH (09:11)
[2020-05-30 09:54] LABS: BASOPHILS % (AUTO) 0.2 % (0.0-2.0); EOSINOPHILS % (AUTO) 3.9 % (0.0-6.0); HEMATOCRIT 42 % (39-51); HEMOGLOBIN 13.4 g/dL (13.5-17.5); LYMPHOCYTES # (AUTO) 1.2 /CMM (0.8-4.8); LYMPHOCYTES % (AUTO) 21.3 % (20.0-44.0); MEAN CORPUSCULAR HGB CONC 32 g/dl (31.0-36.0); MEAN CORPUSCULAR VOLUME 88 fL (80-96); MONOCYTES # (AUTO) 0.4 /CMM (0.1-1.30); MONOCYTES % (AUTO) 7.6 % (2.0-12.0); NEUTROPHILS # (AUTO) 3.6 /CMM (1.8-8.9); PLATELET COUNT (AUTO) 178 /CMM (150-450); RED BLOOD CELL COUNT(AUTO) 4.76 MIL/uL (4.5-6.0); WHITE BLOOD COUNT (AUTO) 5.4 K/uL (4.3-11.0)
[2020-05-30 10:12] LABS: CALCIUM, SERUM 9.3 mg/dL (8.5-10.1); CREATININE 1.1 mg/dL (0.6-1.3); POTASSIUM 3.5 mmol/L (3.5-5.1)
--- NOTE | 2020-05-30 10:32 | NUR ---
WOUND CARE CONSULT: PT PRESENTS WITH WOUND ON LEFT BACK (UNKNOWN ETIOLOGY), PRESENT ON ADMISSION. RECOMMEND SURGICAL CONSULT. DR QUEENIE ESTRELLA NOTIFIED OF CONSULT REQUEST. PT IS ON TAURUS ISOFLEX LOW AIRSS BED. IN AGREEMENT WITH PLAN OF CARE. PT IS ABLE TO ASSIST WITH TURNING AND REPOSITIONING IN BED. Addendum: 05/30/20 at 1034 by JERED ROMAN WNDNU Amended: Links added.
--- NOTE | 2020-05-30 11:20 | NUR ---
Home medications returned back to patient from pharmacy.
[2020-05-30] MEDS ORDERED: APIX5TAB PO (11:23)
[2020-05-30] MEDS ORDERED: FERR325T28 PO (11:23)
--- NOTE | 2020-05-30 13:35 | NUR ---
Patient going discharge to [facility], given report include new medication Eliquize and ferrous sulfate to [facility].RN at [phone].
[2020-05-30] MEDS ORDERED: APIXABAN 5 MG TABLET PO SCH (21:00)
[2020-06-06] MEDS ORDERED: APIXABAN 5 MG TABLET PO SCH (17:00)
== END 2020-05-30 15:20 | DRG 299 ==
LOC: ER 09:18 → ICU 10:50 → TELE1 05-29 07:40 → TELE 05-29 13:56
PROVIDERS: ADMIT Nurse Practitioner Acute Care; ATTEND Nurse Practitioner Acute Care
PROC: 0HB6XZZ Excision of Back Skin, External Approach (ICD-10-PCS; principal; 2020-05-30)
DX: I82.402 Acute embolism and thrombosis of unspecified deep veins of left lower extremity (principal); N17.0 Acute kidney failure with tubular necrosis; D68.59 Other primary thrombophilia; J98.11 Atelectasis; D68.51 Activated protein C resistance; F20.9 Schizophrenia, unspecified; G20 Parkinson's disease; F02.80 Dementia in other diseases classified elsewhere, unspecified severity, without behavioral disturbance, psychotic disturbance, mood disturbance, and anxiety; I25.10 Atherosclerotic heart disease of native coronary artery without angina pectoris; I10 Essential (primary) hypertension; I25.2 Old myocardial infarction; E78.5 Hyperlipidemia, unspecified; E11.9 Type 2 diabetes mellitus without complications; J44.9 Chronic obstructive pulmonary disease, unspecified; Z79.82 Long term (current) use of aspirin; Z79.899 Other long term (current) drug therapy; Z79.01 Long term (current) use of anticoagulants; D63.8 Anemia in other chronic diseases classified elsewhere; I48.0 Paroxysmal atrial fibrillation; Z86.59 Personal history of other mental and behavioral disorders; Z68.35 Body mass index [BMI] 35.0-35.9, adult; E66.9 Obesity, unspecified; Z86.2 Personal history of diseases of the blood and blood-forming organs and certain disorders involving the immune mechanism; Z86.718 Personal history of other venous thrombosis and embolism; E61.1 Iron deficiency; Z79.02 Long term (current) use of antithrombotics/antiplatelets; S31.000A Unspecified open wound of lower back and pelvis without penetration into retroperitoneum, initial encounter; X58.XXXA Exposure to other specified factors, initial encounter; Y92.9 Unspecified place or not applicable
CPT/HCPCS: 36415; 71045-TC; 80048-TC; 80061-TC; 80076-TC; 82728-TC; 82962-TC; 83540-TC; 83735-TC; 84100-TC; 84443-TC; 85025-TC; 85730-TC; 87081-TC; 90732; 93971-TC; 94799-TC; 97116-TC; 97530-TC; G0378; J1644; J1650; J1815; U0003-CS

== ENCOUNTER 2021-09-07 23:18 | Inpatient (IN) | payer MEDICARE, OTHER ==
[~2021-09-07] VITALS: Ht 182.9 cm; Wt 110.7 kg
[~2021-09-07 23:18] MED LIST changes: +APIX5TAB PO; -ASPI-1169 PO; +ASPI-1420 PO; +FERR325T28 PO
--- NOTE | 2021-09-07 23:48 | NUR ---
PATIENT BIBRA FROM SNF PER STAFF "PATIENT FAILING TO THRIVE". PATIENT ALERT AND ORIENTED X3. USUALLY AMBULATORY BUT REFUSES TO WALK WITH WALKER OR ASSISTANCE. PATIENT ALERT AND ORIENTED X1 BASELINE.
--- NOTE | 2021-09-07 23:50 | NUR ---
BLOOD COLLECTED AND SENT TO LAB
[2021-09-08] MEDS ORDERED: IV NS 0.9% 500 ML BAG IV ONE
--- NOTE | 2021-09-08 | NUR ---
EMT @ BEDSIDE FOR EKG
--- NOTE | 2021-09-08 00:08 | NUR ---
CARLOS SWABBED AND SENT TO LAB
--- NOTE | 2021-09-08 00:10 | NUR ---
CALLED FACILITY AND SPOKE WITH CARLA MAYS TO VERIFY WHY PATIENT WAS SENT TO HOSPITAL. PER DAVON, PT HAS BEEN COMPLAINING OF GENERALIZED WEAKNESS W/ AMBULATION AND ADLS DECLINE. WAS MADE AWARE
[2021-09-08 00:18] LABS: BASOPHILS % (AUTO) 0.2 % (0.0-2.0); EOSINOPHILS % (AUTO) 4.3 % (0.0-6.0); HEMATOCRIT 40 % (39-51); HEMOGLOBIN 13.1 g/dL (13.5-17.5); LYMPHOCYTES # (AUTO) 1.8 K/uL (0.8-4.8); LYMPHOCYTES % (AUTO) 28.7 % (20.0-44.0); MEAN CORPUSCULAR HGB CONC 33 g/dl (31.0-36.0); MEAN CORPUSCULAR VOLUME 89 fL (80-96); MONOCYTES # (AUTO) 0.6 K/uL (0.1-1.30); MONOCYTES % (AUTO) 10.3 % (2.0-12.0); NEUTROPHILS # (AUTO) 3.5 K/uL (1.8-8.9); NEUTROPHILS % (AUTO) 56.5 % (43.0-81.0); PLATELET COUNT (AUTO) 153 K/uL (150-450); RED BLOOD CELL COUNT(AUTO) 4.51 MIL/uL (4.5-6.0); WHITE BLOOD COUNT (AUTO) 6.3 K/uL (4.3-11.0)
[2021-09-08 00:38] LABS: CALCIUM, SERUM 8.8 mg/dL (8.5-10.1); CARBON DIOXIDE 29 mmol/L (21-32); CHLORIDE 104 mmol/L (98-107); CREATININE 1.3 mg/dL (0.6-1.3); GLUCOSE 89 mg/dL (74-106); POTASSIUM 4.3 mmol/L (3.5-5.1); SODIUM SERUM 138 mmol/L (136-145); UREA NITROGEN, BLOOD 26 mg/dL (7-18)
[2021-09-08 00:43] LABS: ALANINE AMINOTRANSFERASE 113 U/L (12-78); ALBUMIN 3.2 g/dL (3.4-5.0); ALKALINE PHOSPHATASE 109 U/L (46-116); ASPARTATE AMINOTRANSFERASE 51 U/L (15-37); BILIRUBIN,DIRECT 0.1 mg/dL (0.0-0.2); BILIRUBIN,TOTAL 0.3 mg/dL (0.2-1.0); LIPASE 112 U/L (73-393); TOTAL PROTEIN, SERUM 7.3 g/dL (6.4-8.2)
[2021-09-08] MEDS ORDERED: LIDOCAINE 2% JEL UROJET 10 ML MM ONE (02:00)
--- NOTE | 2021-09-08 02:10 | NUR ---
EPIC PANEL PAGED
--- NOTE | 2021-09-08 02:29 | NUR ---
PATIENT UNABLE TO PROVIDE URINE.
--- NOTE | 2021-09-08 07:20 | NUR ---
ASSESSED PT ON BED AWAKE AND ALERT, AAOX2, NOT IN RESPIRATORY DISTRESS, V/S STABLE, KEPT RESTED AND COMFORTABLE. WILL CONTINUE TO MONITOR.
--- NOTE | 2021-09-08 07:28 | NUR ---
REINSERTED IV LINE R AC G18.
--- NOTE | 2021-09-08 07:58 | NUR ---
[facility] REGARDING PT BED
--- NOTE | 2021-09-08 08:37 | NUR ---
AT BEDSIDE FOR EVAL.
[2021-09-08] MEDS ORDERED: ONDANSETRON HCL/PF 4 MG/2 ML VIAL IVP PRN (09:00)
[2021-09-08] MEDS ORDERED: MAGNESIUM HYDROXIDE 30 ML UDC PO PRN (09:00)
[2021-09-08] MEDS ORDERED: ACETAMINOPHEN 325 MG TABLET PO PRN (09:00)
[2021-09-08] MEDS ORDERED: MAG HYDROX/AL HYDROX/SIMETH 30 ML UDC PO PRN (09:00)
[2021-09-08] MEDS ORDERED: Z GUARD REMEDY 2 OZ OINT TP PRN (09:00)
[2021-09-08] MEDS ORDERED: BENZTROPINE MESYLATE (1 MG) 1 MG TABLET ONE ×3 (09:11→17:01)
[2021-09-08] MEDS ORDERED: ASPIRIN EC 81 MG TABLET.DR PO ONE (09:11)
[2021-09-08] MEDS ORDERED: HALOPERIDOL 5 MG TABLET ONE ×2 (09:12→17:01)
[2021-09-08] MEDS ORDERED: CLOPIDOGREL BISULFATE 75 MG TABLET ONE (09:12)
[2021-09-08] MEDS ORDERED: METOPROLOL TARTRATE 25 MG TABLET ONE ×2 (09:12→17:01)
[2021-09-08] MEDS: FERROUS SULFATE (325 MG) 325 MG/TAB TABLET PO SCH ×2 (09:22→17:05)
[2021-09-08] MEDS: BENZTROPINE MESYLATE (1 MG) 1 MG TABLET PO SCH ×3 (09:22→17:05)
[2021-09-08] MEDS: METOPROLOL TARTRATE 25 MG TABLET PO SCH ×2 (09:22→17:06)
[2021-09-08] MEDS: CLOPIDOGREL BISULFATE 75 MG TABLET PO SCH (09:22)
[2021-09-08] MEDS: ASPIRIN EC 81 MG TABLET.DR PO SCH (09:22)
[2021-09-08] MEDS: HALOPERIDOL 5 MG TABLET PO SCH ×2 (09:22→17:05)
--- NOTE | 2021-09-08 18:11 | NUR ---
PT GOING TO 312.1 AFTER SHIFT
--- NOTE | 2021-09-08 19:58 | NUR ---
ROOM ASSIGNMENT: 113-2 T
--- NOTE | 2021-09-08 20:06 | NUR ---
REPORT GIVEN TO CARLA PEREZ FOR DEVON
--- NOTE | 2021-09-08 20:30 | NUR ---
pt transported to unit on gurney with emt and rn at bedside w/ acls protocol. nad noted during transport
[2021-09-08] MEDS: ATORVASTATIN 40 MG TABLET PO SCH (22:02)
[2021-09-08] MEDS: ZOLPIDEM TARTRATE 5 MG TABLET PO PRN (22:02)
[2021-09-09] VITALS: BP 108/62
--- NOTE | 2021-09-09 03:39 | NUR ---
RN notes Admitted a 71 year old male from a facility with diagnosis of failure to thrive. Has a medical history of Dementia, HTN, Parkinson's Dse, NSTEMI, A-fib, CAD, HLD, [place], DVT, COPD,and psychiatric disorder. Alert and oriented with episodes of forgetfulness. Ambulatory with assist. No distress noted, on room air tolerating well. No complaint of pain or discomfort. Continent of bladder function, uses urinal. Kept clean and dry. Will endorse to next shift for continuity of care.
[2021-09-09 04:00] VITALS: BP 145/74
--- NOTE | 2021-09-09 07:20 | NUR ---
MS RN OPENING NOTE RECEIVED PATIENT RESTING IN BED. PATIENT IS A/O X2. PATIENT IS BREATHING EVENLY AND NONLABORED ON ROOM AIR. NO SIGNS OF DISTRESS NOTED. NO SIGNS OR COMPLAINTS OF PAIN. PATIENT HAS IV ACCESS TO RAC # 20 PATENT AND INTACT. SAFETY MEASURES IN PLACE BED LOW LOCKED, CALL LIGHT WITHIN REACH, NONSKID SOCKS, PATIENT REMINDED TO PRESS THE CALL LIGHT BEFORE GETTING UP. PATIENT VERBALIZED UNDERSTANDING. WILL CONTINUE TO MONITOR
[2021-09-09 07:21] LABS: BASOPHILS % (AUTO) 0.3 % (0.0-2.0); EOSINOPHILS % (AUTO) 3.4 % (0.0-6.0); HEMATOCRIT 37 % (39-51); HEMOGLOBIN 12.5 g/dL (13.5-17.5); LYMPHOCYTES # (AUTO) 1.4 K/uL (0.8-4.8); LYMPHOCYTES % (AUTO) 24.2 % (20.0-44.0); MEAN CORPUSCULAR HGB CONC 34 g/dl (31.0-36.0); MEAN CORPUSCULAR VOLUME 87 fL (80-96); MONOCYTES # (AUTO) 0.6 K/uL (0.1-1.30); MONOCYTES % (AUTO) 10.6 % (2.0-12.0); NEUTROPHILS # (AUTO) 3.5 K/uL (1.8-8.9); NEUTROPHILS % (AUTO) 61.5 % (43.0-81.0); PLATELET COUNT (AUTO) 133 K/uL (150-450); RED BLOOD CELL COUNT(AUTO) 4.19 MIL/uL (4.5-6.0); WHITE BLOOD COUNT (AUTO) 5.7 K/uL (4.3-11.0)
[2021-09-09 07:39] LABS: CALCIUM, SERUM 8.8 mg/dL (8.5-10.1); CREATININE 1.1 mg/dL (0.6-1.3); PHOSPHORUS 2.8 mg/dL (2.5-4.9); POTASSIUM 4.1 mmol/L (3.5-5.1); PREALBUMIN 17.1 MG/DL (18.0-35.7)
[2021-09-09] MEDS: HALOPERIDOL 5 MG TABLET PO SCH ×2 (08:27→16:03)
[2021-09-09] MEDS: METOPROLOL TARTRATE 25 MG TABLET PO SCH ×2 (08:27→16:03)
[2021-09-09] MEDS: ASPIRIN EC 81 MG TABLET.DR PO SCH (08:27)
[2021-09-09] MEDS: BENZTROPINE MESYLATE (1 MG) 1 MG TABLET PO SCH ×3 (08:27→16:03)
[2021-09-09] MEDS: FERROUS SULFATE (325 MG) 325 MG/TAB TABLET PO SCH ×2 (08:27→16:03)
[2021-09-09] MEDS: CLOPIDOGREL BISULFATE 75 MG TABLET PO SCH (08:28)
[2021-09-09 12:02] VITALS: BP 132/73
--- NOTE | 2021-09-09 13:50 | NUR ---
RN NOTE IV ACCESS WAS ACCIDENTALLY PULLED OUT BY PATIENT, PRESSURE DRESSING APPLIED NO MORE BLEEDING NOTED. REINSERTED IV TO R HAND # 22 PATENT AND INTACT.
--- NOTE | 2021-09-09 18:57 | NUR ---
MS RN CLOSING NOTE PATIENT RESTING IN BED. PATIENT IS A/O X2, WITH CONFUSION. ON ROOM AIR,BREATHING EVEN AND NONLABORED. NO SIGNS OF DISTRESS NOTED. NO SIGNS OR COMPLAINTS OF PAIN. PATIENT HAS IV ACCESS TO RHAND #22G, PATENT AND INTACT. SAFETY MEASURES IN PLACE BED IN LOWEST AND LOCKED POSITION, CALL LIGHT WITHIN REACH, NONSKID SOCKS. REMINDED PATIENT TO PRESS THE CALL LIGHT BEFORE GETTING UP. WILL ENDORSE TO NEXT SHIFT.
--- NOTE | 2021-09-09 19:40 | NUR ---
RN OPENING NOTES: RECEIVED PATIENT IN BED ALERT, ORIENTED X2 WITH CONFUSION AND VERBALLY RESPONSIVE. ON ROOM AIR. NO SOB, NO CHEST CONGESTION, BREATHING EVEN AND UNLABORED. IV ACCESS ON RT HAND #22G. NO C/O PAIN OR DISCOMFORT. NO ACUTE DISTRESS. PT TRIED TO GET UP FROM THE BED W/ UNSTEADY GAIT. BED ALARM ON AND PLACE. REMIND PT USE THE CALL LIGHT WHEN HE NEEDS TO GET UP. ALL SAFET YMEASURE IN PLACE. BOTH SIDE RAILS UP. BED IN LOW POSITION AND LOCKED. PLACE CALL LIGHT WITH IN REACH. WILL CONTINUE TO MONITOR
[2021-09-09 20:00] VITALS: BP 117/43
[2021-09-09 20:32] VITALS: BP 117/43
[2021-09-09] MEDS: ATORVASTATIN 40 MG TABLET PO SCH (22:09)
[2021-09-09] MEDS: ZOLPIDEM TARTRATE 5 MG TABLET PO PRN (22:18)
--- NOTE | 2021-09-09 22:40 | NUR ---
RN NOTES: PATIENT WAS NOT ABLE SLEEP, KEPT GETTING UP FROM THE BED. AMBIEN 5 MG TAB GIVEN PER PRN ORDER AND PT TOLERATED WELL. WILL CONTINUE TO MONITOR
--- NOTE | 2021-09-10 01:36 | NUR ---
RN NOTES: PATIENT REMOVED THE IV SITE. NEW SALINE LOCK INSERTED ON RT FOREARM W/ 22G. NO S/S OF INFILTRATIONS. WILL CONTINUE TO MONITOR
[2021-09-10 04:00] VITALS: BP 125/45
[2021-09-10 04:15] VITALS: BP 125/45
[2021-09-10 07:17] LABS: BASOPHILS % (AUTO) 0.3 % (0.0-2.0); EOSINOPHILS % (AUTO) 3.6 % (0.0-6.0); HEMATOCRIT 38 % (39-51); HEMOGLOBIN 12.6 g/dL (13.5-17.5); LYMPHOCYTES # (AUTO) 1.4 K/uL (0.8-4.8); MEAN CORPUSCULAR HGB CONC 34 g/dl (31.0-36.0); MEAN CORPUSCULAR VOLUME 88 fL (80-96); MONOCYTES # (AUTO) 0.6 K/uL (0.1-1.30); MONOCYTES % (AUTO) 10.2 % (2.0-12.0); NEUTROPHILS # (AUTO) 3.5 K/uL (1.8-8.9); NEUTROPHILS % (AUTO) 60.9 % (43.0-81.0); PLATELET COUNT (AUTO) 141 K/uL (150-450); RED BLOOD CELL COUNT(AUTO) 4.27 MIL/uL (4.5-6.0); WHITE BLOOD COUNT (AUTO) 5.8 K/uL (4.3-11.0)
--- NOTE | 2021-09-10 08:01 | NUR ---
RN OPENING NOTES RECEIVED PATIENT IN BED ALERT, ORIENTED X2 WITH CONFUSION AND VERBALLY RESPONSIVE. ON ROOM AIR. NO SOB, NO CHEST CONGESTION, BREATHING EVEN AND UNLABORED. IV ACCESS ON RT HAND #22G. NO C/O PAIN OR DISCOMFORT. NO ACUTE DISTRESS. REMIND PT USE THE CALL LIGHT WHEN HE NEEDS TO GET UP. ALL SAFETY MEASURES IN PLACE. BOTH SIDE RAILS UP. BED IN LOW POSITION AND LOCKED. PLACE CALL LIGHT WITH IN REACH. WILL CONTINUE TO MONITOR.
[2021-09-10 08:20] LABS: CALCIUM, SERUM 8.9 mg/dL (8.5-10.1); CREATININE 1.2 mg/dL (0.6-1.3)
[2021-09-10] MEDS ORDERED: HALOPERIDOL 5 MG TABLET PO PRN (08:30)
[2021-09-10] MEDS ORDERED: clonazePAM 0.5 MG TABLET PO PRN (08:30)
[2021-09-10] MEDS: BENZTROPINE MESYLATE (1 MG) 1 MG TABLET PO SCH ×3 (08:33→16:08)
[2021-09-10] MEDS: CLOPIDOGREL BISULFATE 75 MG TABLET PO SCH (08:34)
[2021-09-10] MEDS: FERROUS SULFATE (325 MG) 325 MG/TAB TABLET PO SCH ×2 (08:34→16:08)
[2021-09-10] MEDS: ASPIRIN EC 81 MG TABLET.DR PO SCH (08:34)
[2021-09-10] MEDS: METOPROLOL TARTRATE 25 MG TABLET PO SCH ×2 (08:40→16:08)
[2021-09-10] MEDS: QUETIAPINE FUMARATE 25 MG TABLET PO SCH ×2 (08:41→16:08)
[2021-09-10] MEDS ORDERED: HALO5TAB8 PO (08:47)
[2021-09-10] MEDS ORDERED: Quetiapine Fumarate PO (08:47)
[2021-09-10] MEDS ORDERED: CLON0.5T4 PO (08:47)
[2021-09-10] MEDS ORDERED: TRAZ-252 PO (08:47)
[2021-09-10 12:00] VITALS: BP 159/68
[2021-09-10 16:08] VITALS: BP 119/72
--- NOTE | 2021-09-10 19:05 | NUR ---
RN DC NOTES PT DC'S TO GPS IN STABLE CONDITION. DC INSTRUCTIONS GIVEN AND EXPLAINED TO PT. PT VERBALIZED UNDERSTANDING. ALL PAPERWORK SIGNED AND COMPLETED. ALL BELONGINGS SENT. IV REMOVED SAFELY. NO COMPLICATIONS NOTED. BEDSIDE REPORT GIVEN TO NURSE ON SHIFT AT GPS.
[2021-09-10] MEDS ORDERED: TRAZODONE 50 MG TABLET PO SCH (22:00)
[2021-09-11] MEDS ORDERED: MAG30ORA PO (07:30)
[2021-09-11] MEDS ORDERED: ALLA266C2 TP (07:30)
[2021-09-11] MEDS ORDERED: QUET25TA PO (07:30)
[2021-09-11] MEDS ORDERED: MAGN400O6 PO (07:30)
[2021-09-11] MEDS ORDERED: FERR325T23 PO (07:30)
[2021-09-11] MEDS ORDERED: ACET-868 PO (07:30)
[2021-09-11] MEDS ORDERED: CLON0.5T4 PO (07:30)
[2021-09-11] MEDS ORDERED: TRAZ-182 PO (07:30)
[2021-09-11] MEDS ORDERED: ZOLP5TAB8 PO (07:30)
== END 2021-09-10 18:47 | DRG 641 ==
LOC: ER 23:21 → TRANSITION 09-08 04:35 → TELE1 09-08 20:17 → MEDSG1 09-08 20:50
PROVIDERS: ADMIT Family Medicine; ATTEND Family Medicine
DX: R62.7 Adult failure to thrive (principal); E44.1 Mild protein-calorie malnutrition; J44.9 Chronic obstructive pulmonary disease, unspecified; I25.2 Old myocardial infarction; I48.91 Unspecified atrial fibrillation; I25.10 Atherosclerotic heart disease of native coronary artery without angina pectoris; I10 Essential (primary) hypertension; G20 Parkinson's disease; Z86.718 Personal history of other venous thrombosis and embolism; E11.9 Type 2 diabetes mellitus without complications; F02.80 Dementia in other diseases classified elsewhere, unspecified severity, without behavioral disturbance, psychotic disturbance, mood disturbance, and anxiety; E78.5 Hyperlipidemia, unspecified; Z79.01 Long term (current) use of anticoagulants; Z79.82 Long term (current) use of aspirin; Z79.02 Long term (current) use of antithrombotics/antiplatelets; Z79.899 Other long term (current) drug therapy; E86.9 Volume depletion, unspecified; R79.89 Other specified abnormal findings of blood chemistry; R74.01 Elevation of levels of liver transaminase levels; F41.9 Anxiety disorder, unspecified; F20.9 Schizophrenia, unspecified
CPT/HCPCS: 36415; 70450-TC; 71045-TC; 80048-TC; 80061-TC; 80076-TC; 82962-TC; 83690-TC; 83735-TC; 84100-TC; 84134-TC; 84484-TC; 85025-TC; 85730-TC; 87081-TC; C9803; G0378; J2405; J3490; U0003

== ENCOUNTER 2021-09-10 19:20 | Inpatient (IN) | payer MEDICARE, OTHER ==
[~2021-09-10] VITALS: Ht 182.9 cm; Wt 110.7 kg
[~2021-09-10 19:20] MED LIST changes: +CLON0.5T4 PO; +Quetiapine Fumarate PO; +TRAZ-252 PO
[2021-09-10] MEDS ORDERED: Z GUARD REMEDY 2 OZ OINT TP PRN (20:00)
[2021-09-10 20:07] VITALS: BP 118/64
[2021-09-10] MEDS ORDERED: ACETAMINOPHEN 325 MG TABLET PO PRN (20:30)
[2021-09-10] MEDS ORDERED: MAG HYDROX/AL HYDROX/SIMETH 30 ML UDC PO PRN (20:30)
[2021-09-10] MEDS ORDERED: MAGNESIUM HYDROXIDE 30 ML UDC PO PRN (20:30)
[2021-09-10] MEDS: METOPROLOL TARTRATE 25 MG TABLET PO SCH (21:36)
[2021-09-10] MEDS: ATORVASTATIN 40 MG TABLET PO SCH (21:39)
[2021-09-10] MEDS: LORAZEPAM 1 MG TABLET PO PRN (23:37)
[2021-09-10 23:53] VITALS: BP 118/64
--- NOTE | 2021-09-11 00:05 | NUR ---
GPS ADMISSION NOTE, RECEIVED PATIENT FROM [facility]. PATIENT HAS SHOWN THAT HE WAS RECENTLY DIAGNOSED FAILURE TO THRIVE.. PATIENT ARRIVAL TIME AT 1900 VIA STRETCHER WITH 2 EMT ESCORTS. PATIENT ADMITTED ON A 5150 HOLD FOR GRAVELY DISABLED. PER HOLD, PATIENT WAS BROUGHT IN DUE TO FAILURE TO THRIVE AND GENERALIZED WEAKNESS. PATIENT REFUSED/UNABLE TO SIGN PAPERWORK. UPON FACE TO FACE ASSESSMENT, PATIENT APPEARS TO BE SLOW TO PROCESS THINGS AND TOOK A WHILE FOR HIM TO RESPOND TO QUESTIONS ASKED BY STAFF. RESPIRATIONS ARE EVEN AND UNLABORED WITH NO SOB NOTED. PATIENT IS ALERT ORIENTED X2-3. PATIENT CURRENTLY DENIES ANY SUICIDAL IDEATION AND HOMICIDAL IDEATION AT THIS TIME. PATIENT ADVISED OF HOLD AND PATIENT RIGHTS BOOKLET WAS GIVEN. PATIENT BELONGINGS CHECKED FOR CONTRABAND, NO CONTRABAND FOUND. SKIN ASSESSMENT COMPLETED. PATIENT ORIENTED TO ROOM, FLOOR, AND STAFF WITH ALL QUESTIONS ANSWERED. PATIENT EDUCATED ON THE USE OF THE CALL ARNOLD. PATIENT BED SIDE RAILS UP X2 FOR SAFETY. BED LOCKED, LOW, AND WILL CONTINUE TO MONITOR Q 15 MINUTES FOR SAFETY.
[2021-09-11 07:12] LABS: BASOPHILS % (AUTO) 0.2 % (0.0-2.0); EOSINOPHILS % (AUTO) 2.4 % (0.0-6.0); HEMATOCRIT 39 % (39-51); HEMOGLOBIN 12.8 g/dL (13.5-17.5); LYMPHOCYTES # (AUTO) 1.4 K/uL (0.8-4.8); LYMPHOCYTES % (AUTO) 19.2 % (20.0-44.0); MEAN CORPUSCULAR HGB CONC 33 g/dl (31.0-36.0); MEAN CORPUSCULAR VOLUME 88 fL (80-96); MONOCYTES # (AUTO) 0.8 K/uL (0.1-1.30); MONOCYTES % (AUTO) 11.9 % (2.0-12.0); NEUTROPHILS # (AUTO) 4.7 K/uL (1.8-8.9); NEUTROPHILS % (AUTO) 66.3 % (43.0-81.0); PLATELET COUNT (AUTO) 145 K/uL (150-450)
[2021-09-11 07:26] LABS: CREATININE 1.3 mg/dL (0.6-1.3); POTASSIUM 4.1 mmol/L (3.5-5.1)
[2021-09-11] MEDS ORDERED: ZOLP5TAB8 PO (07:30)
[2021-09-11] MEDS ORDERED: MAG30ORA PO (07:30)
[2021-09-11] MEDS ORDERED: TRAZ-182 PO (07:30)
[2021-09-11] MEDS ORDERED: FERR325T23 PO (07:30)
[2021-09-11] MEDS ORDERED: ACET-868 PO (07:30)
[2021-09-11] MEDS ORDERED: ALLA266C2 TP (07:30)
[2021-09-11] MEDS: PANTOPRAZOLE 40 MG TABLET.DR PO SCH (07:30)
[2021-09-11] MEDS ORDERED: CLON0.5T4 PO (07:30)
[2021-09-11] MEDS ORDERED: QUET25TA PO (07:30)
[2021-09-11] MEDS ORDERED: MAGN400O6 PO (07:30)
[2021-09-11 08:00] VITALS: BP 125/61
[2021-09-11] MEDS ORDERED: RIVAROXABAN 10 MG TABLET PO SCH (09:00)
[2021-09-11] MEDS: CLOPIDOGREL BISULFATE 75 MG TABLET PO SCH (09:04)
[2021-09-11] MEDS: ASPIRIN EC 81 MG TABLET.DR PO SCH (09:05)
[2021-09-11] MEDS: METOPROLOL TARTRATE 25 MG TABLET PO SCH ×2 (09:05→21:29)
[2021-09-11] MEDS: FERROUS SULFATE (325 MG) 325 MG/TAB TABLET PO SCH ×2 (09:05→16:35)
--- NOTE | 2021-09-11 09:09 | NUR ---
KALEB Initial Discharge Plan: Patient currently resides at [facility] [address] [place] [address]; ([phone]). KALEB spoke with [facility] ([phone]) who stated he will follow up with DON and will let this SW know if pt is welcomed back. Pt has no supportive contact at this time. KALEB will work with the MD and treatment team to coordinate appropriate discharge.
--- NOTE | 2021-09-11 09:10 | NUR ---
SNF Contact: SW spoke with [facility] ([phone]) who stated pt is welcomed back upon dc.
--- NOTE | 2021-09-11 09:11 | NUR ---
Social Work Note/Substance Abuse Intervention: Patient was provided with a brief substance abuse intervention and referred to [facility] ([phone]), [facility] ([phone]), and [facility] ([phone]) for smoking.
--- NOTE | 2021-09-11 10:25 | NUR ---
Treatment Plan: Pt unable to sign the treatment plan due to his confusion.
[2021-09-11 15:52] VITALS: BP 121/72
[2021-09-11] MEDS: RIVAROXABAN 10 MG TABLET PO SCH (16:35)
--- NOTE | 2021-09-11 18:11 | NUR ---
RN-CO: JAMISON Caicedo NP OF DR PINEDA MADE AWARE THAT PT HAS NO ANTI PSYCHOTIC MEDS YET.
[2021-09-11 20:00] VITALS: BP 152/73
[2021-09-11] MEDS ORDERED: BLOOD SUGAR DIAGNOSTIC 1 EACH STRIP IN ONE (21:00)
[2021-09-11] MEDS: RIVASTIGMINE TARTRATE 1.5 MG CAPSULE PO SCH (21:28)
[2021-09-11] MEDS: DIVALPROEX SODIUM 250 MG TABLET.DR PO SCH (21:28)
[2021-09-11] MEDS: ATORVASTATIN 40 MG TABLET PO SCH (21:28)
[2021-09-11] MEDS: ZOLPIDEM TARTRATE 5 MG TABLET PO PRN (23:07)
--- NOTE | 2021-09-11 23:07 | NUR ---
GPS RN NOTES: INSOMNIA PATIENT C/O INABILITY TO SLEEP. PRN AMBIEN 5MG PO GIVEN. WILL CONTINUE TO MONITOR.
[2021-09-12] MEDS: PANTOPRAZOLE 40 MG TABLET.DR PO SCH (07:30)
[2021-09-12 08:00] VITALS: BP 113/57
[2021-09-12] MEDS: METOPROLOL TARTRATE 25 MG TABLET PO SCH ×2 (09:00→21:42)
[2021-09-12] MEDS: ASPIRIN EC 81 MG TABLET.DR PO SCH (09:20)
[2021-09-12] MEDS: RIVASTIGMINE TARTRATE 1.5 MG CAPSULE PO SCH ×2 (09:20→21:41)
[2021-09-12] MEDS: FERROUS SULFATE (325 MG) 325 MG/TAB TABLET PO SCH ×2 (09:21→16:47)
[2021-09-12] MEDS: CLOPIDOGREL BISULFATE 75 MG TABLET PO SCH (09:21)
[2021-09-12] MEDS: DIVALPROEX SODIUM 250 MG TABLET.DR PO SCH ×2 (09:21→21:41)
[2021-09-12 16:00] VITALS: BP 141/80
[2021-09-12] MEDS: RIVAROXABAN 10 MG TABLET PO SCH (16:50)
[2021-09-12 20:00] VITALS: BP 126/62
[2021-09-12] MEDS: ATORVASTATIN 40 MG TABLET PO SCH (21:41)
[2021-09-13 08:00] VITALS: BP 117/67
[2021-09-13] MEDS: ASPIRIN EC 81 MG TABLET.DR PO SCH (08:04)
[2021-09-13] MEDS: PANTOPRAZOLE 40 MG TABLET.DR PO SCH (08:04)
[2021-09-13] MEDS: DIVALPROEX SODIUM 250 MG TABLET.DR PO SCH ×2 (08:04→20:42)
[2021-09-13] MEDS: RIVASTIGMINE TARTRATE 1.5 MG CAPSULE PO SCH ×2 (08:04→20:42)
[2021-09-13] MEDS: CLOPIDOGREL BISULFATE 75 MG TABLET PO SCH (08:04)
[2021-09-13] MEDS: FERROUS SULFATE (325 MG) 325 MG/TAB TABLET PO SCH ×2 (08:04→16:12)
[2021-09-13] MEDS: METOPROLOL TARTRATE 25 MG TABLET PO SCH ×2 (08:04→20:42)
--- NOTE | 2021-09-13 11:24 | NUR ---
WOUND CARE CONSULT: RECEIVED CONSULT FOR RASH ON SACRUM AND GROIN. NO RASH NOTED. PT DOES HAVE SKIN GENERALIZED SKIN CONDITION WITH FLAKY SKIN. WILL SEE PRN. PT IS AMBULATORY.
[2021-09-13 16:00] VITALS: BP 115/66
[2021-09-13] MEDS: RIVAROXABAN 10 MG TABLET PO SCH (16:13)
[2021-09-13 20:00] VITALS: BP 118/70
[2021-09-13] MEDS: ATORVASTATIN 40 MG TABLET PO SCH (22:24)
[2021-09-14] MEDS: ZOLPIDEM TARTRATE 5 MG TABLET PO PRN (01:08)
--- NOTE | 2021-09-14 01:10 | NUR ---
GPS RN NOTES: INSOMNIA PATIENT C/O INABILITY TO SLEEP. PRN AMBIEN 5MG PO GIVEN. WILL CONTINUE TO MONITOR.
[2021-09-14 08:00] VITALS: BP 121/63
[2021-09-14] MEDS: DIVALPROEX SODIUM 250 MG TABLET.DR PO SCH ×2 (08:55→20:39)
[2021-09-14] MEDS: CLOPIDOGREL BISULFATE 75 MG TABLET PO SCH (08:56)
[2021-09-14] MEDS: FERROUS SULFATE (325 MG) 325 MG/TAB TABLET PO SCH ×2 (08:56→17:58)
[2021-09-14] MEDS: METOPROLOL TARTRATE 25 MG TABLET PO SCH ×2 (08:56→20:40)
[2021-09-14] MEDS: PANTOPRAZOLE 40 MG TABLET.DR PO SCH (08:56)
[2021-09-14] MEDS: ASPIRIN EC 81 MG TABLET.DR PO SCH (08:56)
[2021-09-14] MEDS: RIVASTIGMINE TARTRATE 1.5 MG CAPSULE PO SCH ×2 (08:56→20:40)
[2021-09-14 15:43] VITALS: BP 125/62
[2021-09-14] MEDS: RIVAROXABAN 10 MG TABLET PO SCH (17:57)
[2021-09-14] MEDS: LORAZEPAM 1 MG TABLET PO PRN (18:06)
[2021-09-14 20:42] VITALS: BP 126/65
[2021-09-14] MEDS: ATORVASTATIN 40 MG TABLET PO SCH (21:02)
[2021-09-15] MEDS: ZOLPIDEM TARTRATE 5 MG TABLET PO PRN ×2 (01:06→23:38)
[2021-09-15 08:00] VITALS: BP 147/69
[2021-09-15] MEDS: RIVASTIGMINE TARTRATE 1.5 MG CAPSULE PO SCH ×2 (09:24→21:11)
[2021-09-15] MEDS: PANTOPRAZOLE 40 MG TABLET.DR PO SCH (09:24)
[2021-09-15] MEDS: FERROUS SULFATE (325 MG) 325 MG/TAB TABLET PO SCH ×2 (09:24→16:10)
[2021-09-15] MEDS: DIVALPROEX SODIUM 250 MG TABLET.DR PO SCH ×2 (09:24→21:10)
[2021-09-15] MEDS: ASPIRIN EC 81 MG TABLET.DR PO SCH (09:24)
[2021-09-15] MEDS: CLOPIDOGREL BISULFATE 75 MG TABLET PO SCH (09:24)
[2021-09-15] MEDS: METOPROLOL TARTRATE 25 MG TABLET PO SCH ×2 (09:25→21:10)
[2021-09-15 16:00] VITALS: BP 138/69
[2021-09-15] MEDS: RIVAROXABAN 10 MG TABLET PO SCH (16:19)
[2021-09-15] MEDS: LORAZEPAM 1 MG TABLET PO PRN (19:50)
--- NOTE | 2021-09-15 19:50 | NUR ---
RN NOTES: ANXIETY PT.C/O RESTLESS, PARANOID , HYPERVERVAL , NON REDIRECTABLE PRN ATIVAN 1 MG PO , WILL CONTINUE TO MONITOR.
[2021-09-15 20:00] VITALS: BP 131/79
[2021-09-15 20:15] VITALS: BP 131/79
[2021-09-15] MEDS: ATORVASTATIN 40 MG TABLET PO SCH (21:10)
--- NOTE | 2021-09-15 23:39 | NUR ---
RN NOTES: INSOMNIA PATIENT IS UNABLE TO SLEEP. PRN AMBIEN 5 MG PO GIVEN. WILL CONTINUE TO MONITOR.
[2021-09-16 08:00] VITALS: BP 131/76
[2021-09-16] MEDS: FERROUS SULFATE (325 MG) 325 MG/TAB TABLET PO SCH ×2 (08:23→17:51)
[2021-09-16] MEDS: ASPIRIN EC 81 MG TABLET.DR PO SCH (08:23)
[2021-09-16] MEDS: METOPROLOL TARTRATE 25 MG TABLET PO SCH ×2 (08:23→20:49)
[2021-09-16] MEDS: CLOPIDOGREL BISULFATE 75 MG TABLET PO SCH (08:23)
[2021-09-16] MEDS: RIVASTIGMINE TARTRATE 1.5 MG CAPSULE PO SCH ×2 (08:23→20:49)
[2021-09-16] MEDS: DIVALPROEX SODIUM 250 MG TABLET.DR PO SCH ×2 (08:23→20:49)
[2021-09-16] MEDS: PANTOPRAZOLE 40 MG TABLET.DR PO SCH (08:23)
[2021-09-16 16:00] VITALS: BP 145/74
[2021-09-16] MEDS: LORAZEPAM 1 MG TABLET PO PRN (17:48)
[2021-09-16] MEDS: RIVAROXABAN 10 MG TABLET PO SCH (17:52)
[2021-09-16 19:41] VITALS: BP_SYST 124; BP_SYST 161; BP_DIAS 75; BP_DIAS 80
[2021-09-16] MEDS: ATORVASTATIN 40 MG TABLET PO SCH (21:56)
[2021-09-17 08:00] VITALS: BP 129/76
[2021-09-17] MEDS: PANTOPRAZOLE 40 MG TABLET.DR PO SCH (08:26)
[2021-09-17] MEDS: FERROUS SULFATE (325 MG) 325 MG/TAB TABLET PO SCH ×2 (08:28→16:24)
[2021-09-17] MEDS: ASPIRIN EC 81 MG TABLET.DR PO SCH (08:29)
[2021-09-17] MEDS: RIVASTIGMINE TARTRATE 1.5 MG CAPSULE PO SCH ×2 (08:29→21:52)
[2021-09-17] MEDS: CLOPIDOGREL BISULFATE 75 MG TABLET PO SCH (08:29)
[2021-09-17] MEDS: DIVALPROEX SODIUM 250 MG TABLET.DR PO SCH ×2 (08:29→21:52)
[2021-09-17] MEDS: METOPROLOL TARTRATE 25 MG TABLET PO SCH ×2 (08:30→21:53)
--- NOTE | 2021-09-17 15:19 | NUR ---
Court Hearing: Patient's court hearing for 6550 was today and it was upheld for GD.
[2021-09-17 16:00] VITALS: BP 108/68
[2021-09-17] MEDS: RIVAROXABAN 10 MG TABLET PO SCH (16:25)
[2021-09-17 20:00] VITALS: BP 116/65
[2021-09-17] MEDS: ATORVASTATIN 40 MG TABLET PO SCH (21:52)
[2021-09-18] MEDS: PANTOPRAZOLE 40 MG TABLET.DR PO SCH (07:30)
[2021-09-18 08:00] VITALS: BP 110/59
[2021-09-18] MEDS: CLOPIDOGREL BISULFATE 75 MG TABLET PO SCH (08:30)
[2021-09-18] MEDS: FERROUS SULFATE (325 MG) 325 MG/TAB TABLET PO SCH ×2 (08:30→16:26)
[2021-09-18] MEDS: DIVALPROEX SODIUM 250 MG TABLET.DR PO SCH ×2 (08:30→21:11)
[2021-09-18] MEDS: RIVASTIGMINE TARTRATE 1.5 MG CAPSULE PO SCH ×2 (08:30→21:11)
[2021-09-18] MEDS: ASPIRIN EC 81 MG TABLET.DR PO SCH (08:31)
[2021-09-18] MEDS: METOPROLOL TARTRATE 25 MG TABLET PO SCH ×2 (08:32→21:18)
[2021-09-18 16:10] VITALS: BP 134/77
[2021-09-18] MEDS: RIVAROXABAN 10 MG TABLET PO SCH (16:28)
[2021-09-18 20:00] VITALS: BP 146/65
[2021-09-18] MEDS: ATORVASTATIN 40 MG TABLET PO SCH (21:25)
[2021-09-18] MEDS: ZOLPIDEM TARTRATE 5 MG TABLET PO PRN (22:53)
--- NOTE | 2021-09-18 22:55 | NUR ---
RN NOTE: INSOMNIA PATIENT IS UNABLE TO SLEEP, PRN AMBIEN 5 MG 1 TAB PO ADMINISTERED. WILL CONTINUE TO MONITOR FOR ANY CHANGE OF CONDITION.
[2021-09-19] MEDS: PANTOPRAZOLE 40 MG TABLET.DR PO SCH (07:40)
[2021-09-19 08:00] VITALS: BP 139/89
[2021-09-19] MEDS: ASPIRIN EC 81 MG TABLET.DR PO SCH (08:11)
[2021-09-19] MEDS: CLOPIDOGREL BISULFATE 75 MG TABLET PO SCH (08:11)
[2021-09-19] MEDS: DIVALPROEX SODIUM 250 MG TABLET.DR PO SCH ×2 (08:11→22:10)
[2021-09-19] MEDS: METOPROLOL TARTRATE 25 MG TABLET PO SCH ×2 (08:11→21:24)
[2021-09-19] MEDS: FERROUS SULFATE (325 MG) 325 MG/TAB TABLET PO SCH ×2 (08:11→16:32)
[2021-09-19] MEDS: RIVASTIGMINE TARTRATE 1.5 MG CAPSULE PO SCH ×2 (08:11→21:24)
[2021-09-19 16:00] VITALS: BP 143/68
[2021-09-19] MEDS: RIVAROXABAN 10 MG TABLET PO SCH (16:32)
[2021-09-19 20:00] VITALS: BP 138/70
[2021-09-19] MEDS: LORAZEPAM 1 MG TABLET PO PRN (20:33)
--- NOTE | 2021-09-19 20:36 | NUR ---
RN NOTES: ANXIETY PT.C/O RESTLESS, PARANOID , ANXIOUS , NON REDIRECTABLE PRN ATIVAN 1 MG PO , WILL CONTINUE TO MONITOR.
[2021-09-19] MEDS: ATORVASTATIN 40 MG TABLET PO SCH (22:10)
[2021-09-20] MEDS: PANTOPRAZOLE 40 MG TABLET.DR PO SCH (07:24)
[2021-09-20 08:00] VITALS: BP 106/57
[2021-09-20] MEDS: METOPROLOL TARTRATE 25 MG TABLET PO SCH ×2 (08:27→21:26)
[2021-09-20] MEDS: RIVASTIGMINE TARTRATE 1.5 MG CAPSULE PO SCH ×2 (08:28→21:25)
[2021-09-20] MEDS: FERROUS SULFATE (325 MG) 325 MG/TAB TABLET PO SCH ×2 (08:28→16:22)
[2021-09-20] MEDS: CLOPIDOGREL BISULFATE 75 MG TABLET PO SCH (08:28)
[2021-09-20] MEDS: ASPIRIN EC 81 MG TABLET.DR PO SCH (08:28)
[2021-09-20] MEDS: DIVALPROEX SODIUM 250 MG TABLET.DR PO SCH ×2 (08:31→21:25)
--- NOTE | 2021-09-20 10:15 | NUR ---
EARLY DISCHARGE ENTRY Friday09/25/2021: Patient will be discharged to halfway facility [facility] [address] [facility] [address], [place] [address]; ). Please arrange ambulance at 1PM. Trucksmith spoke with Micaela Bar Assistant at [facility]; ([phone]), who stated patient will be accepted today. Patient does not have any family to contact. Patient is alert and oriented x1 and is unable to plan for self-care. Patient denies any suicidal or homicidal ideations. Patient is aware and agreeable with discharge plans. Patient will continue to follow-up with (Psychiatrist) Dr. Lu [address] [facility] [address] [facility] [address], [place] [address]; ([phone]) and (Mva Reactor Operator Head) Dr. Barrientos [address], [place] [address]; ([phone]). Patient was provided with a brief substance abuse intervention and referred to [facility] ([phone]), [facility] ([phone]), and [facility] ([phone]). Patient presents with euthymic mood and congruent affect.
[2021-09-20 16:00] VITALS: BP 117/78
[2021-09-20] MEDS: RIVAROXABAN 10 MG TABLET PO SCH (16:19)
--- NOTE | 2021-09-20 19:30 | NUR ---
GPS RN NOTE, RECEIVED PATIENT AWAKE AND IN BED, NO S/S OR COMPLAINTS OF PAIN AT THIS TIME. PATIENT IS DISPLAYING NO S/S OF APPARENT DISTRESS AT THIS TIME. PATIENT BREATHING IS UNLABORED WITH EQUAL RISE AND FALL OF THE CHEST. PATIENT IS ALERT AND ORIENTED X 1 ON ROOM AIR WITH A SPO2 98%. PATIENT IS COMPLIANT WITH MEDICATIONS, CONFUSED, CALM, AND COOPERATIVE. PATIENT DENIES SUICIDAL AND HOMICIDAL IDEATIONS AT THIS TIME. PATIENT ASSISTED WITH TURNING AND REPOSITIONING Q2HR AND PRN FOR COMFORT AND CIRCULATION. PATIENT HAS NO NEEDS AT THIS TIME. PATIENT EDUCATED ON THE USE OF THE CALL ARNOLD. PATIENT BED SIDE RAILS UP X 2 FOR SAFETY. PATIENT BED IS LOCKED, LOW, WITH BED ALARM ON. WILL CONTINUE TO MONITOR THIS PATIENT Q15 MINUTES WITH THE HELP OF STAFF TO MAINTAIN SAFETY.
[2021-09-20 20:00] VITALS: BP 126/52
[2021-09-20] MEDS: ATORVASTATIN 40 MG TABLET PO SCH (21:25)
[2021-09-21] MEDS: PANTOPRAZOLE 40 MG TABLET.DR PO SCH (07:43)
[2021-09-21 08:00] VITALS: BP 120/68
[2021-09-21] MEDS: CLOPIDOGREL BISULFATE 75 MG TABLET PO SCH (08:15)
[2021-09-21] MEDS: ASPIRIN EC 81 MG TABLET.DR PO SCH (08:15)
[2021-09-21] MEDS: FERROUS SULFATE (325 MG) 325 MG/TAB TABLET PO SCH ×2 (08:15→16:28)
[2021-09-21] MEDS: RIVASTIGMINE TARTRATE 1.5 MG CAPSULE PO SCH ×2 (08:15→21:30)
[2021-09-21] MEDS: DIVALPROEX SODIUM 250 MG TABLET.DR PO SCH ×2 (08:15→21:30)
[2021-09-21] MEDS: METOPROLOL TARTRATE 25 MG TABLET PO SCH ×2 (08:15→21:30)
[2021-09-21 16:00] VITALS: BP 117/75
[2021-09-21] MEDS: RIVAROXABAN 10 MG TABLET PO SCH (16:29)
--- NOTE | 2021-09-21 19:30 | NUR ---
GPS RN NOTE, RECEIVED PATIENT AWAKE AND IN BED, NO S/S OR COMPLAINTS OF PAIN AT THIS TIME. PATIENT IS DISPLAYING NO S/S OF APPARENT DISTRESS AT THIS TIME. PATIENT BREATHING IS UNLABORED WITH EQUAL RISE AND FALL OF THE CHEST. PATIENT IS ALERT AND ORIENTED X 1 ON ROOM AIR WITH A SPO2 99%. PATIENT IS COMPLIANT WITH MEDICATIONS, CONFUSED, CALM, AND COOPERATIVE. PATIENT DENIES SUICIDAL AND HOMICIDAL IDEATIONS AT THIS TIME. PATIENT ASSISTED WITH TURNING AND REPOSITIONING Q2HR AND PRN FOR COMFORT AND CIRCULATION. PATIENT HAS NO NEEDS AT THIS TIME. PATIENT EDUCATED ON THE USE OF THE CALL ARNOLD. PATIENT BED SIDE RAILS UP X 2 FOR SAFETY. PATIENT BED IS LOCKED, LOW, WITH BED ALARM ON. WILL CONTINUE TO MONITOR THIS PATIENT Q15 MINUTES WITH THE HELP OF STAFF TO MAINTAIN SAFETY.
[2021-09-21] MEDS: ATORVASTATIN 40 MG TABLET PO SCH (21:31)
[2021-09-22] MEDS: ZOLPIDEM TARTRATE 5 MG TABLET PO PRN (01:52)
--- NOTE | 2021-09-22 01:52 | NUR ---
GPS RN NOTE, PATIENT HAS A COMPLAINT OF NOT BEING ABLE TO SLEEP AND IS REQUESTING AMBIEN AT THIS TIME. PATIENT VITAL SIGNS ARE STABLE. GAVE AMBIEN 5MG PO HS PRN ORDERED. WILL REASSESS FOR INSOMNIA AND I WILL CONTINUE TO MONITOR THIS PATIENT WITH THE HELP OF STAFF.
[2021-09-22 08:00] VITALS: BP 104/82
[2021-09-22] MEDS: PANTOPRAZOLE 40 MG TABLET.DR PO SCH (08:19)
[2021-09-22] MEDS: RIVASTIGMINE TARTRATE 1.5 MG CAPSULE PO SCH ×2 (08:31→21:39)
[2021-09-22] MEDS: CLOPIDOGREL BISULFATE 75 MG TABLET PO SCH (08:31)
[2021-09-22] MEDS: METOPROLOL TARTRATE 25 MG TABLET PO SCH ×2 (08:32→21:40)
[2021-09-22] MEDS: ASPIRIN EC 81 MG TABLET.DR PO SCH (08:32)
[2021-09-22] MEDS: FERROUS SULFATE (325 MG) 325 MG/TAB TABLET PO SCH ×2 (08:33→16:00)
[2021-09-22] MEDS: DIVALPROEX SODIUM 250 MG TABLET.DR PO SCH ×2 (08:35→21:40)
[2021-09-22 16:00] VITALS: BP 130/59
[2021-09-22] MEDS: RIVAROXABAN 10 MG TABLET PO SCH (16:00)
[2021-09-22 20:00] VITALS: BP 128/70
[2021-09-22] MEDS: ATORVASTATIN 40 MG TABLET PO SCH (21:39)
[2021-09-23 05:11] LABS: BILIRUBIN,URINE NEGATIVE (NEGATIVE); COLOR,URINE YELLOW (YELLOW); LEUKOCYTE ESTERASE ,URINE NEGATIVE (NEGATIVE); NITRITE, URINE NEGATIVE (NEGATIVE); PH,URINE 6.5 (5.0-8.0); PROTEIN,URINE NEGATIVE (NEGATIVE); UGLUCOSE NEGATIVE (NEGATIVE); UROBILINOGEN,URINE 0.2 EU/dL (0.2)
[2021-09-23] MEDS: PANTOPRAZOLE 40 MG TABLET.DR PO SCH (07:30)
[2021-09-23 08:00] VITALS: BP 113/66
[2021-09-23] MEDS: ASPIRIN EC 81 MG TABLET.DR PO SCH (09:11)
[2021-09-23] MEDS: CLOPIDOGREL BISULFATE 75 MG TABLET PO SCH (09:11)
[2021-09-23] MEDS: DIVALPROEX SODIUM 250 MG TABLET.DR PO SCH ×2 (09:11→21:19)
[2021-09-23] MEDS: RIVASTIGMINE TARTRATE 1.5 MG CAPSULE PO SCH ×2 (09:11→21:19)
[2021-09-23] MEDS: FERROUS SULFATE (325 MG) 325 MG/TAB TABLET PO SCH ×2 (09:11→17:29)
[2021-09-23] MEDS: METOPROLOL TARTRATE 25 MG TABLET PO SCH ×2 (09:12→21:19)
[2021-09-23 13:00] VITALS: BP 120/60
[2021-09-23] MEDS: RIVAROXABAN 10 MG TABLET PO SCH (17:30)
[2021-09-23 19:59] VITALS: BP 115/81
[2021-09-23] MEDS: ATORVASTATIN 40 MG TABLET PO SCH (21:20)
--- NOTE | 2021-09-24 07:27 | NUR ---
GPS-RN NOTES: PATIENT NOTED WITH PERINEAL/GROIN REDNESS. GOOD PERICARE RENDERED. DR. HAMILTON NOTIFIED. APPLIED REMEDY Z- GUARD ORDERED. WOULD CONSULT TRIGGERED. WILL ENDORSE TO DAY SHIFT NURSE FOR CONTINUITY OF CARE.
[2021-09-24 08:00] VITALS: BP 130/79
[2021-09-24] MEDS: DIVALPROEX SODIUM 250 MG TABLET.DR PO SCH ×2 (08:16→21:50)
[2021-09-24] MEDS: FERROUS SULFATE (325 MG) 325 MG/TAB TABLET PO SCH ×2 (08:16→17:50)
[2021-09-24] MEDS: PANTOPRAZOLE 40 MG TABLET.DR PO SCH (08:16)
[2021-09-24] MEDS: CLOPIDOGREL BISULFATE 75 MG TABLET PO SCH (08:16)
[2021-09-24] MEDS: RIVASTIGMINE TARTRATE 1.5 MG CAPSULE PO SCH ×2 (08:16→21:07)
[2021-09-24] MEDS: ASPIRIN EC 81 MG TABLET.DR PO SCH (08:17)
[2021-09-24] MEDS: METOPROLOL TARTRATE 25 MG TABLET PO SCH ×2 (08:17→21:07)
[2021-09-24] MEDS: Z GUARD REMEDY 4 OZ OINT TP SCH (09:00)
--- NOTE | 2021-09-24 10:00 | NUR ---
Noted skin tear left elbow patient refused photo applied dressing will continue to monitor .
[2021-09-24 16:00] VITALS: BP 125/93
[2021-09-24] MEDS: RIVAROXABAN 10 MG TABLET PO SCH (17:59)
--- NOTE | 2021-09-24 19:15 | NUR ---
Dressing dry and intact ,patient still refuse photo .
[2021-09-24 20:00] VITALS: BP 118/82
[2021-09-24] MEDS: ATORVASTATIN 40 MG TABLET PO SCH (21:50)
[2021-09-25] MEDS: PANTOPRAZOLE 40 MG TABLET.DR PO SCH (07:30)
[2021-09-25 08:00] VITALS: BP 120/59
[2021-09-25] MEDS: RIVASTIGMINE TARTRATE 1.5 MG CAPSULE PO SCH (09:45)
[2021-09-25] MEDS: ASPIRIN EC 81 MG TABLET.DR PO SCH (09:45)
[2021-09-25 09:46] VITALS: BP 120/59
[2021-09-25] MEDS: METOPROLOL TARTRATE 25 MG TABLET PO SCH (09:46)
[2021-09-25] MEDS: DIVALPROEX SODIUM 250 MG TABLET.DR PO SCH (09:46)
[2021-09-25] MEDS: FERROUS SULFATE (325 MG) 325 MG/TAB TABLET PO SCH (09:46)
[2021-09-25] MEDS: CLOPIDOGREL BISULFATE 75 MG TABLET PO SCH (09:46)
[2021-09-25] MEDS: Z GUARD REMEDY 4 OZ OINT TP SCH (09:48)
--- NOTE | 2021-09-25 13:40 | NUR ---
Patient discharged to [facility] in stable condition.Compliant with medications ,cooperative with treatment plans Patient denies SI/HI/AVH .Behavior improved ,psychiatric tx plans met ,medical tx plans differed for for continual monitoring .Educated pt about after care plan (Exit -care)and copy provided .Returned personal belongings to patient med list given and explained to patient able to verbalize understanding, report given to Blaine FLOYDN in facility .Vs stable ,no c/o pain .Patient seen by SEO EXPERT and Lizzy Roque SEO EXPERT with discharge orders and prescriptions .Patient discharge at 1340 with ambulance.
== END 2021-09-25 13:40 | DRG 885 ==
LOC: GPS 19:20
PROVIDERS: ADMIT Psychiatry & Neurology Psychiatry; ATTEND Nurse Practitioner Acute Care
DX: F39 Unspecified mood [affective] disorder (principal); D68.59 Other primary thrombophilia; E44.1 Mild protein-calorie malnutrition; F29 Unspecified psychosis not due to a substance or known physiological condition; F41.9 Anxiety disorder, unspecified; F02.80 Dementia in other diseases classified elsewhere, unspecified severity, without behavioral disturbance, psychotic disturbance, mood disturbance, and anxiety; G20 Parkinson's disease; I10 Essential (primary) hypertension; I25.10 Atherosclerotic heart disease of native coronary artery without angina pectoris; I25.2 Old myocardial infarction; E78.5 Hyperlipidemia, unspecified; I48.91 Unspecified atrial fibrillation; Z86.718 Personal history of other venous thrombosis and embolism; R79.89 Other specified abnormal findings of blood chemistry; J44.9 Chronic obstructive pulmonary disease, unspecified; Z79.82 Long term (current) use of aspirin; Z79.02 Long term (current) use of antithrombotics/antiplatelets; Z68.33 Body mass index [BMI] 33.0-33.9, adult; E66.9 Obesity, unspecified; E11.9 Type 2 diabetes mellitus without complications; F20.9 Schizophrenia, unspecified; R62.7 Adult failure to thrive; Z91.19 Patient's noncompliance with other medical treatment and regimen; Z79.899 Other long term (current) drug therapy
CPT/HCPCS: 36415; 80048-TC; 80061-TC; 80164-TC; 82962-TC; 85025-TC; 97116-TC; 97530-TC

== ENCOUNTER 2022-04-07 09:58 | Inpatient (IN) | payer MEDICARE, OTHER ==
[~2022-04-07] VITALS: Ht 188 cm; Wt 101.2 kg
[~2022-04-07 09:58] MED LIST changes: +ACET-868 PO; +ALLA266C2 TP; -APIX5TAB PO; -BENZ1TAB7 PO; -CLON0.5T4 PO; +FERR325T23 PO; -FERR325T28 PO; -HALO5TAB8 PO; +MAG30ORA PO; +MAGN400O6 PO; -Quetiapine Fumarate PO; -RIVA10TA PO; -TRAZ-252 PO
--- NOTE | 2022-04-07 10:23 | NUR ---
[facility]. REPORTED BY SNF FOR BLE DVT CONFIRMED W WILLIAM YESTERDAY. PT ON PLAVIX SINCE SEPTEMBER 2021. TO ER BED 9. ATTACHED TO MONITOR AND PROVIDED URINAL AT BEDSIDE.
--- NOTE | 2022-04-07 10:24 | NUR ---
SALINE LOCK ESTABLISHED, BLOOD DRAWN, AND SENT TO LAB
--- NOTE | 2022-04-07 10:25 | NUR ---
URINE COLLECTED AND COVID SWAB DONE AND SENT TO LAB
[2022-04-07] MEDS ORDERED: PANT40TA2 PO (10:43)
[2022-04-07] MEDS ORDERED: ASPI-1169 PO (10:43)
[2022-04-07] MEDS ORDERED: POVI3780 TP (10:43)
[2022-04-07] MEDS ORDERED: RIVA1.5C13 PO (10:43)
[2022-04-07] MEDS ORDERED: DIVA125C5 PO ×2 (10:43)
[2022-04-07] MEDS ORDERED: RIVA10TA PO (10:43)
[2022-04-07] MEDS ORDERED: CEFE1VIA3 IV (10:43)
[2022-04-07] MEDS ORDERED: FURO20TA4 PO (10:43)
[2022-04-07 10:59] LABS: BILIRUBIN,URINE NEGATIVE (NEGATIVE); COLOR,URINE YELLOW (YELLOW); LEUKOCYTE ESTERASE ,URINE NEGATIVE (NEGATIVE); NITRITE, URINE NEGATIVE (NEGATIVE); PROTEIN,URINE NEGATIVE (NEGATIVE); UGLUCOSE NEGATIVE (NEGATIVE); UROBILINOGEN,URINE 0.2 EU/dL (0.2)
[2022-04-07 11:00] LABS: BASOPHILS % (AUTO) 0.5 % (0.0-2.0); EOSINOPHILS % (AUTO) 2.2 % (0.0-6.0); HEMATOCRIT 37 % (39-51); LYMPHOCYTES # (AUTO) 1.4 K/uL (0.8-4.8); LYMPHOCYTES % (AUTO) 19.1 % (20.0-44.0); MEAN CORPUSCULAR HGB CONC 33 g/dl (31.0-36.0); MEAN CORPUSCULAR VOLUME 82 fL (80-96); MONOCYTES # (AUTO) 0.6 K/uL (0.1-1.30); MONOCYTES % (AUTO) 8.3 % (2.0-12.0); NEUTROPHILS % (AUTO) 69.9 % (43.0-81.0); PLATELET COUNT (AUTO) 233 K/uL (150-450); RED BLOOD CELL COUNT(AUTO) 4.47 MIL/uL (4.5-6.0); WHITE BLOOD COUNT (AUTO) 7.1 K/uL (4.3-11.0)
[2022-04-07] MEDS ORDERED: PIPERACILLIN /TAZOBACTAM 3.375 G in IV D5W 50 ML IV ONE (11:00)
[2022-04-07] MEDS ORDERED: VANCOMYCIN 1 GM in IV D5W 250 ML IV ONE (11:00)
--- NOTE | 2022-04-07 11:06 | NUR ---
MOVE SHEET SUBMITTED.
[2022-04-07 11:12] LABS: C-REACTIVE PROTEIN 3.5 mg/dL (0.0-0.9)
[2022-04-07 11:13] LABS: CALCIUM, SERUM 9.3 mg/dL (8.5-10.1); CREATININE 1.2 mg/dL (0.6-1.3); POTASSIUM 4.2 mmol/L (3.5-5.1)
[2022-04-07 11:18] LABS: BILIRUBIN,DIRECT 0.1 mg/dL (0.0-0.2); BILIRUBIN,TOTAL 0.4 mg/dL (0.2-1.0); TOTAL PROTEIN, SERUM 8.2 g/dL (6.4-8.2)
[2022-04-07] MEDS ORDERED: CT SWABBABLE VALVE TRANS SET 1 EA INFUS.SET MC ONE (11:31)
[2022-04-07] MEDS ORDERED: IOHEXOL-350 100 ML VIAL IV ONE (11:31)
[2022-04-07] MEDS ORDERED: IV NS 0.9% 250 ML IV ONE (11:31)
--- NOTE | 2022-04-07 11:37 | NUR ---
PT TAKEN TO RADIOLOGY
--- NOTE | 2022-04-07 11:57 | NUR ---
PT RETURNED FROM RADIOLOGY
[2022-04-07] MEDS ORDERED: HYDROCODONE/APAP 5/325MG TABLET PO PRN (12:30)
[2022-04-07] MEDS ORDERED: MAG HYDROX/AL HYDROX/SIMETH 30 ML UDC PO PRN (12:30)
[2022-04-07] MEDS ORDERED: ONDANSETRON HCL/PF 4 MG/2 ML VIAL IVP PRN (12:30)
[2022-04-07] MEDS ORDERED: ENOXAPARIN SODIUM 40 MG/0.4 ML DISP.SYRIN SQ SCH (12:30)
[2022-04-07] MEDS ORDERED: Z GUARD REMEDY 4 OZ OINT TP PRN (12:30)
[2022-04-07] MEDS ORDERED: MAGNESIUM HYDROXIDE 30 ML UDC PO PRN (12:30)
[2022-04-07] MEDS ORDERED: ACETAMINOPHEN 325 MG TABLET PO PRN (12:30)
--- NOTE | 2022-04-07 13:27 | NUR ---
WILLIAM HUTTON AT BEDSIDE
--- NOTE | 2022-04-07 13:46 | NUR ---
GOT BED 103
--- NOTE | 2022-04-07 14:10 | NUR ---
REPORT GIVEN TO DAVIS RN FOR DEVON
[2022-04-07] MEDS: DIVALPROEX SODIUM 125 MG CAP.SPRINK PO SCH (17:54)
[2022-04-07] MEDS: RIVAROXABAN 10 MG TABLET PO SCH (17:55)
[2022-04-07 19:04] VITALS: BP 133/64
[2022-04-07 20:00] VITALS: BP 114/63
[2022-04-07] MEDS: METOPROLOL TARTRATE 25 MG TABLET PO SCH (21:00)
[2022-04-07] MEDS ORDERED: CEFEPIME 1 GM VIAL IV SCH (21:00)
[2022-04-07] MEDS ORDERED: CEFEPIME 1 GM in IV D5W 50 ML IV SCH (21:00)
--- NOTE | 2022-04-07 21:17 | NUR ---
MS RN OPENING NOTE PT RECEIVED IN BED, AWAKE, A&O X2, CONFUSED. ON RA WITH CURRENT O2SAT OF 100% WITH NO S/S OF RESP DISTRESS, NO SOB OR COUGH, NON-LABORED AND EQUAL BREATHING. VSS, WILL CONTINUE TO MONITOR NEEDED. PT NOTED TO BE AMBULATORY WITH STEADY GAIT. IV ACCESS ON RAC AND RIGHT HAND, INTACT AND PATENT, FLUSHES EASILY WITH NO RESISTANCE; CURRENTLY HAS NO FLUIDS/MEDS RUNNING THROUGH IT. BED IN LOWEST POSITION, CALL LIGHT WITHIN REACH, SIDE RAILS UP X2. WILL CONTINUE TO MONITOR THROUGHOUT THE NIGHT.
[2022-04-07] MEDS: CEFEPIME 2 GM in IV D5W 100 ML IV SCH ×2 (21:50→22:11)
[2022-04-07] MEDS: ATORVASTATIN 40 MG TABLET PO SCH (21:50)
[2022-04-07] MEDS: RIVASTIGMINE TARTRATE 1.5 MG CAPSULE PO SCH (21:53)
--- NOTE | 2022-04-07 21:54 | NUR ---
RN Note Scheduled metorpolol 25 mg due at 2100 held BP 114/63 HR 51.
--- NOTE | 2022-04-07 22:12 | NUR ---
RN Note Pt refused to be hooked into IV and the maxipime 2 grams that was due at 2100.
[2022-04-07] MEDS: VANCOMYCIN 1 GM in IV D5W 250 ML IV SCH (23:00)
--- NOTE | 2022-04-08 00:11 | NUR ---
RN Note Pt refused vancomycin 1 gm that was scheduled for 2300.
[2022-04-08 04:00] VITALS: BP 115/65
--- NOTE | 2022-04-08 05:55 | NUR ---
Rn Note Pt refused to have labs drawn.
--- NOTE | 2022-04-08 06:19 | NUR ---
MS RN CLOSING NOTE PT REMAINS IN BED, AWAKE, SLEPT INTERMITTENTLY, A&O X1-2, CONFUSED, NOTED TO HAVE CONTINUOUSLY GETTING OUT OF BED DURING THE NIGHT. PT REMAINS ON RA O2SAT 100% THROUGHOUT THE NIGHT; NO S/S OF RESP DISTRESS, NO SOB OR COUGH, NON-LABORED AND EQUAL BREATHING. VSS WITH NO SIGNIFICANT CHANGES. PT AMBULATORY WITH STEADY GAIT; ABLE TO AMBULATE TO RESTROOM. IV ACCESS ON RAC AND RIGHT HAND, INTACT AND PATENT, FLUSHES EASILY WITH NO RESISTANCE; PT REFUSED TO RECEIVE IV ABX. BED IN LOWEST POSITION, CALL LIGHT WITHIN REACH, SIDE RAILS UP X2. WILL ENDORSE TO DAYSHIFT NURSE TO CONTINUE CARE.
[2022-04-08] MEDS ORDERED: PANTOPRAZOLE 40 MG TABLET.DR PO SCH (07:30)
--- NOTE | 2022-04-08 07:30 | NUR ---
MS RN CLOSING NOTE PT REMAINS AWAKE, A&O X1-2, CONFUSED, CONTINUOUSLY GETTING OUT OF BED AND TRYING TO LEAVE THE HOSPITAL. MD AND CHARGE NURSE NOTIFIED. PT REMAINS ON RA O2SAT 97 %; NO S/S OF RESP DISTRESS, NO SOB OR COUGH, NON-LABORED AND EQUAL BREATHING. IV ACCESS ON RAC PATENT AND INTACT. RIGHT HAND IV LINE PULLED OUT BY PT. PRESSURE APPLIED AND CLEANED IV SITE, SAFETY MEASURES IN PLACE. BED IN LOWEST POSITION, CALL LIGHT WITHIN REACH, SIDE RAILS UP X2. WILL CONTINUE PLAN OF CARE.
[2022-04-08] MEDS ORDERED: LORAZEPAM INJ 2 MG/ML VIAL IV ONE (08:20)
--- NOTE | 2022-04-08 08:57 | NUR ---
ATIVAN 1MG GIVEN ORDERED BY .
--- NOTE | 2022-04-08 08:57 | NUR ---
1 ON 1 SITTER AT PT'S BEDSIDE.
[2022-04-08] MEDS: FERROUS SULFATE (325 MG) 325 MG/TAB TABLET PO SCH (10:12)
[2022-04-08] MEDS: CEFEPIME 2 GM in IV D5W 100 ML IV SCH (10:12)
[2022-04-08] MEDS: ASPIRIN 81 MG TAB.CHEW PO SCH (10:12)
[2022-04-08] MEDS: DIVALPROEX SODIUM 125 MG CAP.SPRINK PO SCH ×2 (10:13→18:04)
[2022-04-08] MEDS: RIVASTIGMINE TARTRATE 1.5 MG CAPSULE PO SCH ×2 (10:13→21:00)
[2022-04-08] MEDS: PANTOPRAZOLE 40 MG TABLET.DR PO SCH (10:14)
[2022-04-08] MEDS: CLOPIDOGREL BISULFATE 75 MG TABLET PO SCH (10:14)
--- NOTE | 2022-04-08 10:33 | NUR ---
MD NOTIFIED PT BP 90/60 IF LOPRESSOR NEEDS TO BE HELD. MD ORDERED NOT TO PUT ON HOLD. WILL CARRY OUT ORDERED.
[2022-04-08] MEDS: METOPROLOL TARTRATE 25 MG TABLET PO SCH ×2 (11:02→21:00)
[2022-04-08] MEDS: VANCOMYCIN 1 GM in IV D5W 250 ML IV SCH (11:14)
[2022-04-08 12:00] VITALS: BP 117/74
[2022-04-08] MEDS: FUROSEMIDE 20 MG TABLET PO SCH (12:16)
[2022-04-08 15:28] LABS: BASOPHILS % (AUTO) 0.2 % (0.0-2.0); EOSINOPHILS % (AUTO) 0.4 % (0.0-6.0); HEMATOCRIT 35 % (39-51); HEMOGLOBIN 11.4 g/dL (13.5-17.5); LYMPHOCYTES # (AUTO) 1.4 K/uL (0.8-4.8); LYMPHOCYTES % (AUTO) 19.7 % (20.0-44.0); MEAN CORPUSCULAR HGB CONC 32 g/dl (31.0-36.0); MEAN CORPUSCULAR VOLUME 82 fL (80-96); MONOCYTES # (AUTO) 0.6 K/uL (0.1-1.30); MONOCYTES % (AUTO) 8.7 % (2.0-12.0); NEUTROPHILS # (AUTO) 5.2 K/uL (1.8-8.9); PLATELET COUNT (AUTO) 224 K/uL (150-450); RED BLOOD CELL COUNT(AUTO) 4.32 MIL/uL (4.5-6.0); WHITE BLOOD COUNT (AUTO) 7.3 K/uL (4.3-11.0)
[2022-04-08 16:11] LABS: CALCIUM, SERUM 8.7 mg/dL (8.5-10.1); CREATININE 1.3 mg/dL (0.6-1.3); MAGNESIUM 2.1 mg/dL (1.8-2.4); PHOSPHORUS 3.4 mg/dL (2.5-4.9); POTASSIUM 4.3 mmol/L (3.5-5.1)
[2022-04-08] MEDS: RIVAROXABAN 10 MG TABLET PO SCH (18:05)
--- NOTE | 2022-04-08 18:45 | NUR ---
MD NOTIFIED PT BRIAN EXT ARE POSITIVE FOR DVT.
--- NOTE | 2022-04-08 18:49 | NUR ---
MS RN CLOSING NOTE PT AWAKE, A&O X1-2, COMFORTABLY RESTING IN BED. PT REMAINS ON RA O2SAT 97%; NO S/S OF RESP DISTRESS, NO SOB OR COUGH, NON-LABORED AND EQUAL BREATHING. IV ACCESS ON RAC PATENT AND INTACT. SAFETY MEASURES IN PLACE. BED IN LOWEST POSITION, CALL LIGHT WITHIN REACH, SIDE RAILS UP X2. WILL ENDORSE TO NEXT NURSE ON DUTY FOR CONTINUITY OF CARE.
[2022-04-08 20:00] VITALS: BP 101/65
--- NOTE | 2022-04-08 20:51 | NUR ---
WAN/RN DURING INITIAL SHIFT ROUND, RECEIVED PATIENT LYING IN BED AWAKE, ALERT, ORIENTED, CALM, NO SIGNS OF DISTRESS NOTED, CALL LIGHT IN REACH, WILL MONITOR.
[2022-04-08] MEDS: APIXABAN 5 MG TABLET PO SCH (21:00)
[2022-04-08] MEDS: LORAZEPAM INJ 2 MG/ML VIAL IV PRN (21:36)
--- NOTE | 2022-04-08 21:49 | NUR ---
WAN/RN PATIENT IS VERY AGITATED AT THIS TIME, TRYING TO GET OUT OF THE ROOM, FIGHTIING WITH ANYBODY WHO COMES CLOSE TO HIM, ATIVAN 1 MG IVP WAS GIVEN ORDERED. PATIENT REFUSED ALL DUE MEDS AT THIS TIME, WILL TRY AGAIN LATER WHEN MORE CALM. WILL MONITOR.
[2022-04-08] MEDS: ATORVASTATIN 40 MG TABLET PO SCH (22:00)
--- NOTE | 2022-04-08 22:20 | NUR ---
WAN/RN PATIENT APPEARS SLEEPING AT THIS TIME, NO SIGNS OF DISTRESS NOTED, WILL CONTINUE TO MONITOR.
--- NOTE | 2022-04-08 23:34 | NUR ---
WAN/RN PATIENT IS TRYING TO GET OUT OF BED, NOT FOLLOWING INSTRUCTIONS, PATIENT IS FALL RISK, OBTAINED ORDER FOR BITLATERAL SOFT WRIST RESTRAINTS FOR SAFETY. WILL MONITOR PER PROTOCOL.
[2022-04-09] MEDS: VANCOMYCIN 1 GM in IV D5W 250 ML IV SCH ×3 (01:09→23:10)
[2022-04-09 04:00] VITALS: BP 124/62
[2022-04-09 06:14] LABS: BASOPHILS % (AUTO) 0.2 % (0.0-2.0); EOSINOPHILS % (AUTO) 1.7 % (0.0-6.0); HEMATOCRIT 34 % (39-51); HEMOGLOBIN 11.2 g/dL (13.5-17.5); LYMPHOCYTES # (AUTO) 1.2 K/uL (0.8-4.8); LYMPHOCYTES % (AUTO) 18.3 % (20.0-44.0); MEAN CORPUSCULAR HGB CONC 33 g/dl (31.0-36.0); MEAN CORPUSCULAR VOLUME 82 fL (80-96); MONOCYTES # (AUTO) 0.7 K/uL (0.1-1.30); MONOCYTES % (AUTO) 11.3 % (2.0-12.0); NEUTROPHILS # (AUTO) 4.5 K/uL (1.8-8.9); NEUTROPHILS % (AUTO) 68.5 % (43.0-81.0); PLATELET COUNT (AUTO) 202 K/uL (150-450); RED BLOOD CELL COUNT(AUTO) 4.15 MIL/uL (4.5-6.0); WHITE BLOOD COUNT (AUTO) 6.6 K/uL (4.3-11.0)
[2022-04-09 06:28] LABS: ALANINE AMINOTRANSFERASE 16 U/L (12-78); ALBUMIN 2.5 g/dL (3.4-5.0); ALKALINE PHOSPHATASE 62 U/L (46-116); ASPARTATE AMINOTRANSFERASE 20 U/L (15-37); BILIRUBIN,TOTAL 0.5 mg/dL (0.2-1.0); CALCIUM, SERUM 8.5 mg/dL (8.5-10.1); CARBON DIOXIDE 27 mmol/L (21-32); CHLORIDE 103 mmol/L (98-107); CREATININE 1.1 mg/dL (0.6-1.3); GLUCOSE 81 mg/dL (74-106); PHOSPHORUS 2.5 mg/dL (2.5-4.9); POTASSIUM 3.5 mmol/L (3.5-5.1); SODIUM SERUM 136 mmol/L (136-145); UREA NITROGEN, BLOOD 14 mg/dL (7-18)
--- NOTE | 2022-04-09 06:59 | NUR ---
WAN/RN AT 0600, WOUND CARE WAS DONE BY CLEANING WOUND WITH NS, DRY WELL, APPLIED VASELINE GAUZED, COVERED WITH ABD PAD, WRAPPED WITH KERLIX, SECURED WITH TAPE. MORNING CARE DONE, TOTAL LINEN CHANGED DONE. PRESENTLY, PATIENT IS SLEEPING, AT THIS TIME, NO SIGNS OF DISTRESS NOTED, CALL LIGHT IN REACH, ALL NEEDS ATTENDED AT THIS TIME, WILL CONTINUE TO MONITOR.
--- NOTE | 2022-04-09 07:26 | NUR ---
BANK CLERK OPENING NOTES RECEIVED PT IN BED ASLEEP, EASILY AROUSED. PT A/O X2, CONFUSED. REORIENTED PT NEEDED. ON O2 AT 2L/MIN VIA NASAL CANNULA, TOLERATING WELL. BREATHING UNLABORED. NOT IN ANY SIGN OF RESPIRATORY DISTRESS. ON CARDIAC TELE MONITOR WITH CURRENT READING OF AFIB CONTROLLED, HR 60. NO C/O CARDIAC DISTRESS VOICED AT THIS TIME. IV ACCESS IN RAC INTACT AND PATENT. SAFETY MEASURES IN PLACE: BED IN LOWEST AND LOCKED POSITION, SIDE RAILS UPX2, AND CALL LIGHT WITHIN REACH. WILL CONTINUE TO MONITOR PT.
[2022-04-09] MEDS: PANTOPRAZOLE 40 MG TABLET.DR PO SCH (08:06)
[2022-04-09] MEDS: CEFEPIME 2 GM in IV D5W 100 ML IV SCH ×2 (09:35→21:47)
[2022-04-09] MEDS: CLOPIDOGREL BISULFATE 75 MG TABLET PO SCH (09:35)
[2022-04-09] MEDS: DIVALPROEX SODIUM 125 MG CAP.SPRINK PO SCH ×2 (09:36→17:29)
[2022-04-09] MEDS: ASPIRIN 81 MG TAB.CHEW PO SCH (09:36)
[2022-04-09] MEDS: FERROUS SULFATE (325 MG) 325 MG/TAB TABLET PO SCH (09:36)
[2022-04-09] MEDS: RIVASTIGMINE TARTRATE 1.5 MG CAPSULE PO SCH ×2 (09:38→21:48)
[2022-04-09] MEDS: METOPROLOL TARTRATE 25 MG TABLET PO SCH ×2 (09:38→21:48)
[2022-04-09] MEDS: APIXABAN 5 MG TABLET PO SCH ×2 (09:39→16:13)
--- NOTE | 2022-04-09 11:04 | NUR ---
WOUND CARE CONSULT: PT PRESENTS WITH ULCERS TO BILATERAL LOWER LEGS WITH REDNESS, PRESENT ON ADMISSION. DPM CONSULT CALLED TO DR HAMPAPUR. ZUNIGA IN AGREEMENT WITH PLAN OF CARE.
[2022-04-09 12:00] VITALS: BP 116/56
[2022-04-09] MEDS: RIVAROXABAN 10 MG TABLET PO SCH (16:13)
--- NOTE | 2022-04-09 19:10 | NUR ---
GROUND WATER PUMP INSTALLER CLOSING NOTES PT IN BED ASLEEP, EASILY AROUSED. PT A/O X2, CONFUSED. REORIENTED PT NEEDED. ON O2 AT 2L/MIN VIA NASAL CANNULA, TOLERATING WELL. BREATHING UNLABORED. NOT IN ANY SIGN OF RESPIRATORY DISTRESS. PT REMOVED CARDIAC TELE MONITOR AND REFUSED TO HAVE IT ON. EXPLAINED RISK AND BENEFITS STILL STRONGLY REFUSED. NO C/O CARDIAC DISTRESS VOICED AT THIS TIME. IV ACCESS IN RAC SALINE LOCK, INTACT AND PATENT. ALL NEEDS ATTENDED. KEPT CLEAN AND COMFORTABLE. SAFETY MEASURES IN PLACE: BED IN LOWEST AND LOCKED POSITION, SIDE RAILS UPX2, AND CALL LIGHT WITHIN REACH. ENDORSED TO COLLAR BASTER JUMPBASTING NURSE FOR DEVON.
--- NOTE | 2022-04-09 19:30 | NUR ---
ENROLLMENT SERVICES VICE PRESIDENT OPENING NOTES RECEIVED PT IN BED AWAKE. PT A/O X2, CONFUSED. REORIENTED PT NEEDED. PATIENT ON NC O2 2L TOLERATING WELL. NO S/S OF RESP DISTRESS NOTED. PATIENT REMOVED TELE MONITOR AND REFUSES TO KEEP IT ON. IV ACCESS IN RAC INTACT AND PATENT. PATIENT HAS A RESTRAINT ORDER, NO RESTRAINTS ON AT THIS TIME. SAFETY MEASURES IN PLACE: BED IN LOWEST AND LOCKED POSITION, SIDE RAILS UPX2, AND CALL LIGHT WITHIN REACH. WILL CONTINUE TO MONITOR PT. PATIENT HAS A SITTER.
[2022-04-09 20:00] VITALS: BP 114/59
--- NOTE | 2022-04-09 21:30 | NUR ---
TELEVISION INSTALLER HELPER NOTE PATIENT SCRATCHED HIS SCAB ON LEFT UPPER AND IT STARTED BLEEDING. I CLEANED WITH STERILE WATER AND PLACED GAUZE AND TAPE OVER IT. PATIENT STATED HE WAS FEELING NERVOUS ABOUT BEING IN THE HOSPITAL SO HE STARTED PICKING. PATIENTS RIGHT RESTRAINT WAS PLACED ON SO HE WOULDN'T PICK AT IT.WOUND CONSULT WILL BE ORDERED. WILL CONTINUE TO MONITOR
[2022-04-09] MEDS: ATORVASTATIN 40 MG TABLET PO SCH (21:48)
[2022-04-10] VITALS: BP 125/69
[2022-04-10 04:00] VITALS: BP 130/51
[2022-04-10 06:30] LABS: BASOPHILS % (AUTO) 0.2 % (0.0-2.0); EOSINOPHILS % (AUTO) 1.6 % (0.0-6.0); HEMATOCRIT 34 % (39-51); HEMOGLOBIN 11.2 g/dL (13.5-17.5); LYMPHOCYTES # (AUTO) 1.2 K/uL (0.8-4.8); LYMPHOCYTES % (AUTO) 20.1 % (20.0-44.0); MEAN CORPUSCULAR HGB CONC 33 g/dl (31.0-36.0); MEAN CORPUSCULAR VOLUME 81 fL (80-96); MONOCYTES # (AUTO) 0.6 K/uL (0.1-1.30); NEUTROPHILS # (AUTO) 3.9 K/uL (1.8-8.9); NEUTROPHILS % (AUTO) 67.1 % (43.0-81.0); PLATELET COUNT (AUTO) 213 K/uL (150-450); RED BLOOD CELL COUNT(AUTO) 4.18 MIL/uL (4.5-6.0); WHITE BLOOD COUNT (AUTO) 5.8 K/uL (4.3-11.0)
--- NOTE | 2022-04-10 06:33 | NUR ---
HOT CAR OPERATOR CLOSING NOTE PATIENT IS IN STABLE CONDITION DURING SHIFT, NO DISTRESS OR DISCOMFORT NOTED. TELE MONITOR READS AFIB UNCONTROLLED HR 52, PATIENT DENIES ANY PAIN, RAC IV INTACT AND PATENT, ALL DUE MEDICATIONS RECEIVED, ALL NEEDS ATTENDED, KEPT PATIENT CLEAN AND DRY, SIDE RAILS X2, CALL LIGHT WITHIN REACH, WILL ENDORSE TO DAYSHIFT NURSE.
[2022-04-10 06:56] LABS: CALCIUM, SERUM 8.7 mg/dL (8.5-10.1); CARBON DIOXIDE 26 mmol/L (21-32); CHLORIDE 105 mmol/L (98-107); GLUCOSE 88 mg/dL (74-106); POTASSIUM 3.6 mmol/L (3.5-5.1); SODIUM SERUM 139 mmol/L (136-145); UREA NITROGEN, BLOOD 11 mg/dL (7-18)
[2022-04-10 07:35] LABS: PHOSPHORUS 2.5 mg/dL (2.5-4.9)
--- NOTE | 2022-04-10 07:38 | NUR ---
RN OPENING NOTE PATIENT AWAKE IN BED RESTING. A/O X2. NO S/S OF PAIN NOTED AT THIS TIME. ON ROOM AIR, NO DISTRESS OR SHORTNESS OF BREATH NOTED. IV ACCESS RAC, INTACT, PATENT AND FLUSHING WELL. PATIENT ON EXTERNAL MANAGER OF HOSPITAL WITH CURRENT READING OF AFIB AND HR OF 60, NO CARDIAC DISTRESS NOTED. FALL AND SAFETY MEASURES IN PLACE, BED ALARM ON, BED IN LOW AND LOCK POSITION, CALL LIGHT AND TABLE WITHIN EASY REACH, SIDE RAILS UP X2. WILL CONTINUE TO MONITOR.
[2022-04-10 08:00] VITALS: BP 110/69
--- NOTE | 2022-04-10 09:29 | NUR ---
WOUND CARE CONSULT: PT SEEN FOR DRY SCAB TO LEFT ARM ABOVE ELBOW. NO DRAINAGE OR TENDERNESS NOTED. OPEN TO AIR. DISCUSSED SKIN PROTECTION WITH NURSING STAFF.
--- NOTE | 2022-04-10 10:00 | NUR ---
RN NOTE PATIENT KEPT TAKING OFF THE EXTERNAL CRM MARKETING MANAGER AND REFUSED TO PUT IT ON, MULTIPLE ATTEMPTS BUT PATIENT REFUSED EVERY TIME. CHARGE NURSE AWARE.
[2022-04-10] MEDS: PANTOPRAZOLE 40 MG TABLET.DR PO SCH (10:08)
[2022-04-10] MEDS: FERROUS SULFATE (325 MG) 325 MG/TAB TABLET PO SCH (10:08)
[2022-04-10] MEDS: DIVALPROEX SODIUM 125 MG CAP.SPRINK PO SCH ×2 (10:08→17:08)
[2022-04-10] MEDS: ASPIRIN 81 MG TAB.CHEW PO SCH (10:08)
[2022-04-10] MEDS: CLOPIDOGREL BISULFATE 75 MG TABLET PO SCH (10:09)
[2022-04-10] MEDS: METOPROLOL TARTRATE 25 MG TABLET PO SCH ×2 (10:09→21:50)
[2022-04-10] MEDS: RIVAROXABAN 10 MG TABLET PO SCH (10:10)
[2022-04-10] MEDS: APIXABAN 5 MG TABLET PO SCH ×2 (10:10→17:09)
[2022-04-10] MEDS: RIVASTIGMINE TARTRATE 1.5 MG CAPSULE PO SCH ×2 (10:14→21:49)
[2022-04-10] MEDS: CEFEPIME 2 GM in IV D5W 100 ML IV SCH ×2 (10:14→21:08)
[2022-04-10] MEDS: THERAHONEY GEL 1.5 OZ TUBE TP SCH (10:14)
[2022-04-10] MEDS ORDERED: POLYETHYLENE GLYCOL 3350 17 GM POWD.PACK PO PRN (11:00)
[2022-04-10] MEDS: VANCOMYCIN 1 GM in IV D5W 250 ML IV SCH ×2 (11:33→23:48)
[2022-04-10 12:00] VITALS: BP 136/68
[2022-04-10] MEDS: FUROSEMIDE 20 MG TABLET PO SCH (13:10)
[2022-04-10 16:00] VITALS: BP 125/76
--- NOTE | 2022-04-10 18:21 | NUR ---
RN CLOSING NOTE PATIENT AWAKE IN BED RESTING. A/O X2. NO S/S OF PAIN NOTED AT THIS TIME. ON ROOM AIR, NO DISTRESS OR SHORTNESS OF BREATH NOTED. IV ACCESS RAC, INTACT, PATENT AND FLUSHING WELL. PATIENT REFUSED EXTERNAL EXTRACTION MACHINE OPERATOR, NO CARDIAC DISTRESS NOTED. SCHEDULE MEDICATIONS ADMINISTERED. FALL AND SAFETY MEASURES IN PLACE, BED ALARM ON, BED IN LOW AND LOCK POSITION, CALL LIGHT AND TABLE WITHIN EASY REACH, SIDE RAILS UP X2. WILL ENDORSE TO POLE MAKER.
--- NOTE | 2022-04-10 19:50 | NUR ---
RN OPENING NOTES, RECEIVED PATIENT IN BED, AWAKE, ALERT/ORIENTED X2 WITH CONFUSION AND VERBALLY RESPONSIVE. BREATHING EVEN AND UNLABORED. ON ROOM AIR AND PT TOLERATED WELL. IV ACCESS ON RAC, INTACT AND PATENT. NO S/S OF INFILTRATIONS. NO C/O PAIN OR DISCOMFORT. NO ACUTE DISTRESS. FALL AND SAFETY MEASURES IN PLACE, BED ALARM ON, BED IN LOWEST POSITION AND LOCKED. PLACE CALL LIGHT WITH IN REACH. SIDE RAILS UP X2. SITTER AT BEDSIDE. WILL CONTINUE TO MONITOR.
[2022-04-10 20:00] VITALS: BP 127/68
[2022-04-10] MEDS: ATORVASTATIN 40 MG TABLET PO SCH (21:49)
[2022-04-11 04:00] VITALS: BP 142/71
[2022-04-11 06:29] LABS: BASOPHILS % (AUTO) 0.3 % (0.0-2.0); EOSINOPHILS % (AUTO) 1.8 % (0.0-6.0); HEMATOCRIT 36 % (39-51); HEMOGLOBIN 11.9 g/dL (13.5-17.5); LYMPHOCYTES # (AUTO) 1.5 K/uL (0.8-4.8); LYMPHOCYTES % (AUTO) 20.9 % (20.0-44.0); MEAN CORPUSCULAR HGB CONC 33 g/dl (31.0-36.0); MEAN CORPUSCULAR VOLUME 82 fL (80-96); MONOCYTES # (AUTO) 0.9 K/uL (0.1-1.30); MONOCYTES % (AUTO) 12.3 % (2.0-12.0); NEUTROPHILS # (AUTO) 4.8 K/uL (1.8-8.9); NEUTROPHILS % (AUTO) 64.7 % (43.0-81.0); PLATELET COUNT (AUTO) 211 K/uL (150-450); RED BLOOD CELL COUNT(AUTO) 4.42 MIL/uL (4.5-6.0); WHITE BLOOD COUNT (AUTO) 7.4 K/uL (4.3-11.0)
--- NOTE | 2022-04-11 06:31 | NUR ---
RN CLOSING NOTES, PATIENT IN BED, AWAKE, ALERT/ORIENTED X2 WITH CONFUSION AND VERBALLY RESPONSIVE. BREATHING EVEN AND UNLABORED. ON O2 AT 2L/MIN VIA N/C AND PT TOLERATED WELL. O2 SAT 97%. IV ACCESS ON RAC, INTACT AND PATENT. NO S/S OF INFILTRATIONS. NO C/O PAIN OR DISCOMFORT. NO ACUTE DISTRESS. HAD EPISODES OF GOT UP FROM THE BED AND STARTED WALKING ON THE HALLWAY WITH UNSTEADY GAIT. ASSISTED HIM TO THE BED. APPLIED BILATERAL RESTRAINT. RELEASED Q 2HOURS TO CHECK CIRCULATIONS. ALL DUE MEDS GIVEN ORDERED. PT REMAIN NPO AFTER MIDNIGHT FOR LE ANGIOGRAM. FALL AND SAFETY MEASURES IN PLACE, BED ALARM ON, BED IN LOWEST POSITION AND LOCKED. PLACE CALL LIGHT WITH IN REACH. SIDE RAILS UP X2. SITTER AT BEDSIDE. WILL ENDORSE TO MORNING SHIFT NURSE.
[2022-04-11 07:06] LABS: CALCIUM, SERUM 8.8 mg/dL (8.5-10.1); CREATININE 1.1 mg/dL (0.6-1.3); MAGNESIUM 2.4 mg/dL (1.8-2.4); PHOSPHORUS 2.3 mg/dL (2.5-4.9); POTASSIUM 3.6 mmol/L (3.5-5.1)
--- NOTE | 2022-04-11 07:27 | NUR ---
RN opening note PATIENT IN BED, AWAKE, ALERT/ORIENTED TIMES 2 ,CONFUSED AND VERBALLY RESPONSIVE. ON O2 AT 2L/MIN VIA N/C BREATHING UN LABORED , NO SIGHS OF DISTRESS ,O2 SAT 97%. PATIENT HAS IV ACCESS ON RAC, INTACT AND PATENT, FLUSHED WITH 10 ML OF THE NS , NO S/S OF INFILTRATIONS. RISK FOR FALL , ABLATES WITH ASSISTANCE PATIENT IS ON BILATERAL RESTRAINT. PT REMAIN NPO AFTER MIDNIGHT FOR LE ANGIOGRAM. FALL AND SAFETY MEASURES IN PLACE, BED ALARM ON, BED IN LOWEST POSITION AND LOCKED. PATIENT HAS SITTER.
[2022-04-11] MEDS: PANTOPRAZOLE 40 MG TABLET.DR PO SCH (07:30)
--- NOTE | 2022-04-11 08:02 | NUR ---
RN NOTE PATIENT IS AGITATED , REFUSED ORAL MEDICATION , KEEP SAYING GO AWAY
[2022-04-11] MEDS: ASPIRIN 81 MG TAB.CHEW PO SCH (09:00)
[2022-04-11] MEDS: DIVALPROEX SODIUM 125 MG CAP.SPRINK PO SCH ×2 (09:00→17:09)
[2022-04-11] MEDS: THERAHONEY GEL 1.5 OZ TUBE TP SCH (09:00)
[2022-04-11] MEDS: CLOPIDOGREL BISULFATE 75 MG TABLET PO SCH (09:00)
[2022-04-11] MEDS: METOPROLOL TARTRATE 25 MG TABLET PO SCH ×2 (09:00→21:04)
[2022-04-11] MEDS: APIXABAN 5 MG TABLET PO SCH ×2 (09:00→16:42)
[2022-04-11] MEDS: FERROUS SULFATE (325 MG) 325 MG/TAB TABLET PO SCH (09:00)
[2022-04-11] MEDS: RIVASTIGMINE TARTRATE 1.5 MG CAPSULE PO SCH ×2 (09:00→21:04)
[2022-04-11] MEDS: CEFEPIME 2 GM in IV D5W 100 ML IV SCH ×2 (09:20→21:03)
[2022-04-11 10:00] VITALS: BP 125/68
[2022-04-11] MEDS ORDERED: Sodium Phosphate 30 MMOL in IV NS 0.9% 250 ML IV SCH (10:00)
--- NOTE | 2022-04-11 10:00 | NUR ---
RN NOTES RECEIVED PT FROM JUAN CARLOS AGUIRRE FOR CONTINUITY OF CARE
[2022-04-11] MEDS: VANCOMYCIN 1 GM in IV D5W 250 ML IV SCH ×2 (11:29→23:19)
--- NOTE | 2022-04-11 11:30 | NUR ---
RN NOTES PT REFUSED VANCO TROUGH DRAWING , PHARMACY NOTIFED, VANCO IV GIVEN PER BARBARA PHARMACIST.
[2022-04-11 16:01] VITALS: BP 138/76
[2022-04-11] MEDS: RIVAROXABAN 10 MG TABLET PO SCH (16:41)
[2022-04-11 20:00] VITALS: BP 126/75
--- NOTE | 2022-04-11 20:47 | NUR ---
MS RN OPENING NOTE PT RECEIVED IN BED, AWAKE, A&O X2, AGITATED, CONFUSED. NOTED TO BE ON 2L NC WITH CURRENT O2SAT OF 99%; NO S/S OF RESP DISTRESS, NON-LABORED AND EQUAL BREATHING, NO SOB OR COUGH. VSS, WILL MONITOR NEEDED. PT ON BILATERAL SOFT WRIST RESTRAINTS WITH NO S/S OF IMPAIRED SKIN OR IMPAIRED CIRCULATION. IV ACCESS ON LAC 20G WITH NS TKO AT 10 ML/HR; IV INTACT AND PATENT, FLUSHES EASILY WITH NO RESISTANCE. BED IN LOWEST POSITION, CALL LIGHT WITHIN REACH, SIDE RAILS UP X3. WILL CONTINUE TO MONITOR THROUGHOUT THE NIGHT.
[2022-04-11] MEDS: ATORVASTATIN 40 MG TABLET PO SCH (21:03)
[2022-04-11] MEDS: LORAZEPAM INJ 2 MG/ML VIAL IV PRN (21:04)
--- NOTE | 2022-04-11 21:05 | NUR ---
RN NOTE PT NOTED TO BE AGITATED, YELLING, AND KICKING. PT ADMINISTERED ATIVAN 1 MG. WILL MONITOR FOR EFFECTIVENESS.
--- NOTE | 2022-04-11 21:31 | NUR ---
RN NOTE PT REFUSED TO TAKE 2100 SCHEDULED ORAL MEDS METOPROLOL, RIVASTIGMINE, AND ATORVASTATIN.
[2022-04-12 04:00] VITALS: BP 117/76
--- NOTE | 2022-04-12 06:45 | NUR ---
MS RN CLOSING NOTE PT IN BED, AWAKE; MORE CALM AND COOPERATIVE COMPARED TO START OF SHIFT, A&O X1-2. PT ON RA WITH O2SAT RANGING FROM 94%-99%; SHOWS NO S/S OF RESP DISTRESS, NON-LABORED AND EQUAL BREATHING, NO SOB OR COUGH. VSS DURING THE NIGHT WITH NO SIGNIFICANT CHANGES. PT REMAINS ON BILATERAL SOFT WRIST RESTRAINTS; PROVIDED PT WITH RELEASE OF RESTRAINTS, FLUIDS, HYGIENE. LAC 20G INTACT AND PATENT, NO S/S OF INFILTRATION, FLUSHES EASILY WITH NO RESISTANCE; CURRENTLY HAS NS TKO AT 10 ML/HR. ALL DUE MEDS ADMINISTERED DURING THE NIGHT. BED IN LOWEST POSITION, CALL LIGHT WITHIN REACH, SIDE RAILS UP X3. WILL ENDORSE TO DAYSHIFT NURSE TO CONTINUE CARE.
[2022-04-12 07:29] LABS: BASOPHILS % (AUTO) 0.3 % (0.0-2.0); EOSINOPHILS % (AUTO) 1.4 % (0.0-6.0); HEMATOCRIT 38 % (39-51); HEMOGLOBIN 12.3 g/dL (13.5-17.5); LYMPHOCYTES # (AUTO) 1.2 K/uL (0.8-4.8); MEAN CORPUSCULAR HGB CONC 32 g/dl (31.0-36.0); MEAN CORPUSCULAR VOLUME 83 fL (80-96); MONOCYTES # (AUTO) 0.8 K/uL (0.1-1.30); MONOCYTES % (AUTO) 11.3 % (2.0-12.0); NEUTROPHILS # (AUTO) 4.9 K/uL (1.8-8.9); PLATELET COUNT (AUTO) 203 K/uL (150-450); RED BLOOD CELL COUNT(AUTO) 4.58 MIL/uL (4.5-6.0)
[2022-04-12] MEDS: PANTOPRAZOLE 40 MG TABLET.DR PO SCH (07:30)
--- NOTE | 2022-04-12 07:30 | NUR ---
OPENING NOTE: REPORT RECEIVED FROM PRINCESS AGUIRRE. LABS AND ORDERS REVIEWED DURING REPORT. PT CEHCKED ON HOURLY AND PRN BY NURSING STAFF.
[2022-04-12 08:00] VITALS: BP 139/63
[2022-04-12] MEDS: CEFEPIME 2 GM in IV D5W 100 ML IV SCH (08:50)
[2022-04-12] MEDS: DIVALPROEX SODIUM 125 MG CAP.SPRINK PO SCH ×2 (08:51→17:09)
[2022-04-12] MEDS: ASPIRIN 81 MG TAB.CHEW PO SCH (08:51)
[2022-04-12] MEDS: RIVASTIGMINE TARTRATE 1.5 MG CAPSULE PO SCH (08:51)
[2022-04-12] MEDS: APIXABAN 5 MG TABLET PO SCH ×2 (08:51→17:00)
[2022-04-12] MEDS: METOPROLOL TARTRATE 25 MG TABLET PO SCH (08:52)
[2022-04-12] MEDS: CLOPIDOGREL BISULFATE 75 MG TABLET PO SCH (08:52)
[2022-04-12] MEDS: THERAHONEY GEL 1.5 OZ TUBE TP SCH (08:52)
[2022-04-12] MEDS: FERROUS SULFATE (325 MG) 325 MG/TAB TABLET PO SCH (08:52)
[2022-04-12 09:03] LABS: CALCIUM, SERUM 8.7 mg/dL (8.5-10.1); MAGNESIUM 2.2 mg/dL (1.8-2.4); PHOSPHORUS 2.9 mg/dL (2.5-4.9); POTASSIUM 3.8 mmol/L (3.5-5.1)
[2022-04-12] MEDS ORDERED: IV NS 0.9% 250 ML IV PRN (09:30)
--- NOTE | 2022-04-12 09:32 | NUR ---
PT REFUSED TO TAKE ANY AND ALL PO MEDS. PT ADVISED THAT HE NEEDS TO TAKE HIS ELIQUIS BECAUSE HE HAS DVT'S IN BRIAN LEGS. PT CONTINUED TO REFUSE. DR REEVES NOTIFIED, NO ORDERS GIVEN.
[2022-04-12] MEDS: VANCOMYCIN 1 GM in IV D5W 250 ML IV SCH (11:08)
[2022-04-12] MEDS: FUROSEMIDE 20 MG TABLET PO SCH (12:30)
[2022-04-12] MEDS ORDERED: APIX5TAB PO (14:49)
[2022-04-12] MEDS ORDERED: SULF1TAB48 PO (14:49)
--- NOTE | 2022-04-12 15:40 | NUR ---
RAPID COVID TEST SENT TO LAB FOR PREP FOR PATIENT TO RETURN TO [facility]
[2022-04-12] MEDS: RIVAROXABAN 10 MG TABLET PO SCH (17:00)
--- NOTE | 2022-04-12 17:52 | NUR ---
REPORT CALLED TO [facility] [phone]. ETA FOR AMBULANCE PHOTOLITHOGRAPHER IS [phone]
--- NOTE | 2022-04-12 18:53 | NUR ---
AMBULANCE LEFT WITH PATIENT TO RETURN PATIENT TO [facility]. ALL PAPERWORK AND PT BELONGINGS SENT WITH PATIENT. IV SITE REMOVED PRIOR TO DISHCARGE,
== END 2022-04-12 19:32 | DRG 264 ==
LOC: ER 10:00 → MEDSG1 13:54 → TELE1 04-08 08:49 → MEDSG1 04-10 07:56
PROVIDERS: ATTEND Student in an Organized Health Care Education/Training Program
PROC: 0JBP0ZZ Excision of Left Lower Leg Subcutaneous Tissue and Fascia, Open Approach (ICD-10-PCS; principal; 2022-04-10)
PROC: 0JBN0ZZ Excision of Right Lower Leg Subcutaneous Tissue and Fascia, Open Approach (ICD-10-PCS; 2022-04-10)
DX: E11.51 Type 2 diabetes mellitus with diabetic peripheral angiopathy without gangrene (principal); D68.59 Other primary thrombophilia; E44.0 Moderate protein-calorie malnutrition; L03.115 Cellulitis of right lower limb; L97.829 Non-pressure chronic ulcer of other part of left lower leg with unspecified severity; L97.819 Non-pressure chronic ulcer of other part of right lower leg with unspecified severity; I70.238 Atherosclerosis of native arteries of right leg with ulceration of other part of lower leg; I82.403 Acute embolism and thrombosis of unspecified deep veins of lower extremity, bilateral; I70.248 Atherosclerosis of native arteries of left leg with ulceration of other part of lower leg; E11.40 Type 2 diabetes mellitus with diabetic neuropathy, unspecified; I25.10 Atherosclerotic heart disease of native coronary artery without angina pectoris; I48.91 Unspecified atrial fibrillation; E78.5 Hyperlipidemia, unspecified; F02.80 Dementia in other diseases classified elsewhere, unspecified severity, without behavioral disturbance, psychotic disturbance, mood disturbance, and anxiety; G20 Parkinson's disease; F25.9 Schizoaffective disorder, unspecified; F31.9 Bipolar disorder, unspecified; I10 Essential (primary) hypertension; J44.9 Chronic obstructive pulmonary disease, unspecified; K59.00 Constipation, unspecified; Z20.822 Contact with and (suspected) exposure to COVID-19; Z79.01 Long term (current) use of anticoagulants; Z79.02 Long term (current) use of antithrombotics/antiplatelets; Z79.82 Long term (current) use of aspirin; Z79.899 Other long term (current) drug therapy; Z86.718 Personal history of other venous thrombosis and embolism
CPT/HCPCS: 36415; 75625; 75635-TC; 80048-TC; 80053-TC; 80076-TC; 80164-TC; 80202-TC; 83605-TC; 83735-TC; 84100-TC; 85025-TC; 85652-TC; 85730-TC; 86140-TC; 87040-TC; 87070-TC; 87081-TC; 87086-TC; 87186-TC; 93307-TC; 93970-TC; 94799-TC; A6253; A6403; A9563; C9803; G0378; J0692; J2060; J2543; J3370; J7050; J7060; Q9967

== ENCOUNTER 2022-04-28 10:47 | Inpatient (IN) | payer MEDICARE, OTHER ==
[~2022-04-28] VITALS: Ht 188 cm; Wt 98.0 kg
[~2022-04-28 10:47] MED LIST changes: +APIX5TAB PO; +ASPI-1169 PO; -ASPI-1420 PO; +DIVA125C5 PO; +FURO20TA4 PO; +PANT40TA2 PO; +POVI3780 TP; +RIVA1.5C13 PO; +RIVA10TA PO; +SULF1TAB48 PO
--- NOTE | 2022-04-28 11:05 | NUR ---
BIBHEMAL FROM [facility] FOR PSYCH EVAL, PER FACILITY PATIENT IS MORE CONFUSED THAN USUAL, HX OF DEMENTIA. PLACED ON BED, AAOX3, BREATHING EVEN AND UNLABORED.
--- NOTE | 2022-04-28 11:06 | NUR ---
SEEN AND EXAMINED BY DR RAINEY
--- NOTE | 2022-04-28 11:09 | NUR ---
FUNERAL HOME ASSISTANT AT BED SIDE
[2022-04-28] MEDS ORDERED: ZINC50TA69 PO (11:13)
[2022-04-28] MEDS ORDERED: ASCO500T10 PO (11:13)
[2022-04-28] MEDS ORDERED: POVI3780 TP (11:13)
[2022-04-28] MEDS ORDERED: AMIN30LI2 PO (11:13)
[2022-04-28] MEDS ORDERED: APIX5TAB PO (11:13)
[2022-04-28 11:22] LABS: BASOPHILS % (AUTO) 0.7 % (0.0-2.0); EOSINOPHILS % (AUTO) 2.2 % (0.0-6.0); HEMATOCRIT 36 % (39-51); HEMOGLOBIN 11.8 g/dL (13.5-17.5); LYMPHOCYTES # (AUTO) 1.4 K/uL (0.8-4.8); LYMPHOCYTES % (AUTO) 26.7 % (20.0-44.0); MEAN CORPUSCULAR HGB CONC 33 g/dl (31.0-36.0); MEAN CORPUSCULAR VOLUME 82 fL (80-96); MONOCYTES # (AUTO) 0.5 K/uL (0.1-1.30); MONOCYTES % (AUTO) 9.9 % (2.0-12.0); NEUTROPHILS # (AUTO) 3.2 K/uL (1.8-8.9); NEUTROPHILS % (AUTO) 60.5 % (43.0-81.0); PLATELET COUNT (AUTO) 143 K/uL (150-450); RED BLOOD CELL COUNT(AUTO) 4.38 MIL/uL (4.5-6.0); WHITE BLOOD COUNT (AUTO) 5.3 K/uL (4.3-11.0)
--- NOTE | 2022-04-28 11:25 | NUR ---
SWAB FOR COVID19 SENT TO LAB
--- NOTE | 2022-04-28 12:02 | NUR ---
PATIENT TAKEN TO CT VIA MINDY
[2022-04-28 12:09] LABS: ALANINE AMINOTRANSFERASE 20 U/L (12-78); ALBUMIN 3.2 g/dL (3.4-5.0); ALCOHOL, BLOOD < 3 mg/dL (0-0); ALKALINE PHOSPHATASE 69 U/L (46-116); ASPARTATE AMINOTRANSFERASE 25 U/L (15-37); BILIRUBIN,DIRECT 0.2 mg/dL (0.0-0.2); BILIRUBIN,TOTAL 0.5 mg/dL (0.2-1.0); CALCIUM, SERUM 9.6 mg/dL (8.5-10.1); CARBON DIOXIDE 26 mmol/L (21-32); CHLORIDE 105 mmol/L (98-107); CREATININE 1.1 mg/dL (0.6-1.3); GLUCOSE 99 mg/dL (74-106); POTASSIUM 4.1 mmol/L (3.5-5.1); SODIUM SERUM 138 mmol/L (136-145); TOTAL PROTEIN, SERUM 7.7 g/dL (6.4-8.2); UREA NITROGEN, BLOOD 21 mg/dL (7-18)
[2022-04-28 12:11] LABS: ACETAMINOPHEN 0 ug/ml (10-30)
--- NOTE | 2022-04-28 12:20 | NUR ---
[facility] CALLED JOB SETTER PAGED.
--- NOTE | 2022-04-28 12:45 | NUR ---
URINE SAMPLE SENT TO LAB
--- NOTE | 2022-04-28 12:57 | NUR ---
DR. RAINEY SPEAKING W/ SANTOS, EARTH MOVING MACHINE OPERATOR
--- NOTE | 2022-04-28 13:29 | NUR ---
CLINICIAN CALLED PAT [phone]
[2022-04-28 13:33] LABS: BILIRUBIN,URINE NEGATIVE (NEGATIVE); COLOR,URINE YELLOW (YELLOW); LEUKOCYTE ESTERASE ,URINE NEGATIVE (NEGATIVE); NITRITE, URINE NEGATIVE (NEGATIVE); PH,URINE 5.5 (5.0-8.0); PROTEIN,URINE NEGATIVE (NEGATIVE); UGLUCOSE NEGATIVE (NEGATIVE); UROBILINOGEN,URINE 0.2 EU/dL (0.2)
[2022-04-28] MEDS ORDERED: HALOPERIDOL LACTATE INJ 5 MG/ML VIAL ONE (16:51)
[2022-04-28] MEDS ORDERED: HALOPERIDOL LACTATE INJ 5 MG/ML VIAL IM ONE (17:00)
--- NOTE | 2022-04-28 17:05 | NUR ---
ROOM 214-2
--- NOTE | 2022-04-28 17:06 | NUR ---
REPORT GIVEN TO NURSE LISA FOR DEVON
[2022-04-28] MEDS ORDERED: MAGNESIUM HYDROXIDE 30 ML UDC PO PRN ×2 (18:00→21:00)
[2022-04-28] MEDS ORDERED: ACETAMINOPHEN 325 MG TABLET PO PRN (18:00)
[2022-04-28] MEDS ORDERED: BLOOD SUGAR DIAGNOSTIC 1 EACH STRIP IN ONE (18:00)
[2022-04-28] MEDS ORDERED: MAG HYDROX/AL HYDROX/SIMETH 30 ML UDC PO PRN ×2 (18:00→21:00)
[2022-04-28 18:19] VITALS: BP 109/59
[2022-04-28] MEDS: LORAZEPAM 0.5 MG TABLET PO PRN (18:46)
--- NOTE | 2022-04-28 18:46 | NUR ---
RN NOTE- AGITATION, ANXIETY. ATIVAN 0.5 MG ADMINISTERED,
--- NOTE | 2022-04-28 19:05 | NUR ---
GPS-COMMUNITY OUTREACH MANAGER NOTES: ADMITTED A 72-Y/O, MALE, FROM [facility], ADMITTED ON A 5150 FOR GD. PER HOLD, PT PRESENTED DISORIENTED, CONFUSED AND DISORGANIZED. PATIENT PRESENTS WITH DELUSIONS ABOUT "ISMAEL" PLOTTING AGAINST HIM. UPON FACE TO FACE EVALUATION, PATIENT IS ALERT AND ORIENTED TO SELF ONLY, CONFUSED, DISORIENTED, AND DISORGANIZED. SKIN ASSESSMENT DONE. WOUND CONSULT ORDERED. PATIENT ADVISED OF HIS HOLD AND PATIENT RIGHTS BOOKLET AND PRESCRIPTION MEDICATION GUIDE GIVEN. ALL BELONGINGS WERE SCREENED FOR CONTRABAND. PT IS UNDER THE PSYCHIATRIC CARE OF DR. GUILLEN AND MEDICAL CARE OF DR. GRAHAM. BED IN LOW LOCKED POSITION. SAFETY PRECAUTIONS MAINTAINED. WILL CONTINUE TO MONITOR Q15 MINS FOR MOOD, SAFETY AND BEHAVIOR. NO FAMILY TO NOTIFY REGARDING PATIENT'S ADMISSION.
[2022-04-28 19:15] VITALS: BP 153/72
[2022-04-28 19:42] VITALS: BP 153/72
[2022-04-28] MEDS: APIXABAN 5 MG TABLET PO SCH (21:14)
[2022-04-28] MEDS: RIVASTIGMINE TARTRATE 1.5 MG CAPSULE PO SCH (21:15)
[2022-04-28] MEDS: METOPROLOL TARTRATE 25 MG TABLET PO SCH (21:15)
[2022-04-28] MEDS: SULFAMETH/TRIMETH 800/160 MG 1 UDTAB TABLET PO SCH (21:15)
[2022-04-28] MEDS: ATORVASTATIN 40 MG TABLET PO SCH (21:16)
[2022-04-29] MEDS: LORAZEPAM 0.5 MG TABLET PO PRN ×3 (03:22→17:01)
--- NOTE | 2022-04-29 07:30 | NUR ---
RN NOTES RECEIVED PATIENT IN BED ASLEEP, EASILY AROUSED. ALERT AND ORIENTED TO SELF ONLY. NO SIGNS/SYMPTOMS OF ACUTE DISTRESS NOTED. STABLE ON ROOM AIR, BREATHING EVEN AND UNLABORED. PATIENT IS CONFUSED, DISORGANIZED, DISORIENTED, COOPERATIVE TO CARE. REALITY ORIENTED PROVIDED NEEDED. SAFETY PRECAUTIONS MAINTAINED. WILL CONTINUE TO MONITOR FOR SAFETY AND BEHAVIOR.
[2022-04-29 08:00] VITALS: BP 133/67
[2022-04-29] MEDS: PANTOPRAZOLE 40 MG TABLET.DR PO SCH (08:46)
[2022-04-29] MEDS: ASPIRIN 81 MG TAB.CHEW PO SCH (08:46)
[2022-04-29] MEDS: ZINC SULFATE 220 MG CAPSULE PO SCH (08:46)
[2022-04-29] MEDS: RIVASTIGMINE TARTRATE 1.5 MG CAPSULE PO SCH ×2 (08:47→21:26)
[2022-04-29] MEDS: METOPROLOL TARTRATE 25 MG TABLET PO SCH ×2 (08:47→21:00)
[2022-04-29] MEDS: CLOPIDOGREL BISULFATE 75 MG TABLET PO SCH (08:47)
[2022-04-29] MEDS: ASCORBIC ACID 500 MG TABLET PO SCH (08:47)
[2022-04-29] MEDS: FERROUS SULFATE (325 MG) 325 MG/TAB TABLET PO SCH (08:47)
[2022-04-29] MEDS: PROSOURCE / PROSTAT (PYXIS) 30 ML UDC PO SCH (09:00)
[2022-04-29] MEDS: APIXABAN 5 MG TABLET PO SCH ×2 (09:00→16:27)
[2022-04-29] MEDS: SULFAMETH/TRIMETH 800/160 MG 1 UDTAB TABLET PO SCH ×2 (09:00→21:26)
--- NOTE | 2022-04-29 09:21 | NUR ---
Treatment Plan: Pt refused to sign treatment plan and was confused.
--- NOTE | 2022-04-29 09:21 | NUR ---
KALEB Initial Discharge Plan: Patient currently resides at [address] [address]; ). KALEB spoke with Micaela from [facility] (healthcare marketer) who stated that pt is welcomed back upon dc. Pt does not have any supportive contact at this time. KAELB paty work with the pt and MD to help coordinate appropriate discharge.
--- NOTE | 2022-04-29 09:21 | NUR ---
SW Family Contact: Pt does not have any supportive contact.
--- NOTE | 2022-04-29 10:51 | NUR ---
RN NOTE ATIVAN 0.5 MG GIVEN FOR ANXIETY.
[2022-04-29] MEDS: HALOPERIDOL 5 MG TABLET PO SCH ×3 (11:02→16:24)
[2022-04-29] MEDS: BENZTROPINE MESYLATE (1 MG) 1 MG TABLET PO SCH ×2 (11:02→16:24)
[2022-04-29] MEDS: DIVALPROEX SODIUM 250 MG TABLET.DR PO SCH ×3 (11:02→16:24)
[2022-04-29 12:33] LABS: CHOLESTEROL 110 mg/dL (<200); HDL CHOLESTEROL 50 mg/dL (40-60); LDL 52 mg/dL (0-99); TRIGLYCERIDES 49 mg/dL (30-150)
[2022-04-29 12:34] LABS: ALANINE AMINOTRANSFERASE 22 U/L (12-78); ALBUMIN 3.5 g/dL (3.4-5.0); ALKALINE PHOSPHATASE 72 U/L (46-116); ASPARTATE AMINOTRANSFERASE 28 U/L (15-37); BILIRUBIN,TOTAL 0.6 mg/dL (0.2-1.0); CALCIUM, SERUM 9.4 mg/dL (8.5-10.1); CARBON DIOXIDE 24 mmol/L (21-32); CHLORIDE 100 mmol/L (98-107); CREATININE 1.3 mg/dL (0.6-1.3); GLUCOSE 107 mg/dL (74-106); SODIUM SERUM 134 mmol/L (136-145); TOTAL PROTEIN, SERUM 8.3 g/dL (6.4-8.2); UREA NITROGEN, BLOOD 19 mg/dL (7-18)
--- NOTE | 2022-04-29 14:02 | NUR ---
RN-CO: Patient refused MRSA swab, tried to swab but pt became agitated.
[2022-04-29 16:00] VITALS: BP 106/59
--- NOTE | 2022-04-29 17:01 | NUR ---
RN NOTE ATIVAN 0.5 MG PO ADMINISTERED FOR AGITATION.
[2022-04-29] MEDS ORDERED: DIVALPROEX SODIUM 125 MG CAP.SPRINK PO SCH (18:00)
--- NOTE | 2022-04-29 18:46 | NUR ---
RN NOTES PATIENT IN BED, AWAKE. A/O X1, VERBALLY RESPONSIVE NO SIGNS OF ACUTE DISTRESS NOTED. PATIENT CONFUSED, DISORGANIZED, GETS EASILY IRRITATED/AGITATED. PATIENT IS AMBULATORY WITH STEADY GAIT, WANDERS, REORIENTED NEEDED. COMPLIANT WITH MEDS. SAFETY MEASURE MAINTAINED, BED IN LOWEST AND LOCKED POSITION, SIDE RAILS UP, VISUAL CHECKS DONE. WILL ENDORSE TO NEXT SHIFT FOR CONTINUITY OF CARE.
[2022-04-29 20:03] VITALS: BP 109/55
[2022-04-29 20:28] VITALS: BP 109/55
[2022-04-29] MEDS: TEMAZEPAM 7.5 MG CAPSULE PO PRN (21:13)
--- NOTE | 2022-04-29 21:15 | NUR ---
RN NOTE: INSOMNIA PATIENT IS UNABLE TO SLEEP, IRRITABLE, AGITATED, ANXIOUS AT THIS TIME, PRN RESTORIL 7.5 MG PO ADMINISTERED. WILL CONTINUE TO MONITOR FOR ANY CHANGES.
--- NOTE | 2022-04-29 21:28 | NUR ---
RN NOTE: LOPRESSOR HELD PATIENT'S BP AND HR NOTED TO BE 105/59, 60 AT THIS TIME. LOPRESSOR HELD TO PREVENT HYPOTENSION. PATIENT IS UP IN A ALDO CHAIR AT THIS TIME, EASILY ANXIOUS, AGITATED, DISORGANIZED AND KEEPS REPEATING," I WANT TO GO HOME," REDIRECTIONS BEING PROVIDED FREQUENTLY. WILL CONTINUE TO MONITOR FOR ANY CHANGE OF CONDITION.
[2022-04-29] MEDS: ATORVASTATIN 40 MG TABLET PO SCH (21:39)
[2022-04-30] MEDS: LORAZEPAM 0.5 MG TABLET PO PRN ×2 (06:06→17:30)
--- NOTE | 2022-04-30 06:08 | NUR ---
RN NOTE: ANXIETY/AGITATION PATIENT IS ANXIOUS, RESTLESS, AGITATED AND NON REDIRECTABLE AT THIS TIME. PRN ATIVAN 1 MG PO ADMINISTERED.
--- NOTE | 2022-04-30 07:55 | NUR ---
RN OPENING NOTE PATIENT AWAKE IN BED RESTING. A/O X1, CONFUSED, FORGETFUL, DISORIENTED, EASILY AGITATED. NO S/S OF PAIN NOTED AT THIS TIME. ON ROOM AIR, NO DISTRESS OR SHORTNESS OF BREATH NOTED. PATIENT IS COMPLIANT WITH MEDICATIONS. PATIENT DENIES SUICIDE IDEATION AND HOMICIDAL IDEATIONS AT THIS TIME. FALL AND SAFETY MEASURES IN PLACE, BED ALARM ON, BED IN LOW AND LOCK POSITION, CALL LIGHT AND TABLE WITHIN EASY REACH, SIDE RAILS UP X2. WILL CONTINUE TO MONITOR Q15 MINUTES WITH HELP OF STAFF TO MAINTAIN SAFETY.
[2022-04-30 08:00] VITALS: BP 110/67
[2022-04-30] MEDS: RIVASTIGMINE TARTRATE 1.5 MG CAPSULE PO SCH ×2 (09:02→21:14)
[2022-04-30] MEDS: SULFAMETH/TRIMETH 800/160 MG 1 UDTAB TABLET PO SCH ×2 (09:02→21:14)
[2022-04-30] MEDS: ASPIRIN 81 MG TAB.CHEW PO SCH (09:02)
[2022-04-30] MEDS: DIVALPROEX SODIUM 250 MG TABLET.DR PO SCH ×3 (09:02→16:25)
[2022-04-30] MEDS: PROSOURCE / PROSTAT (PYXIS) 30 ML UDC PO SCH (09:02)
[2022-04-30] MEDS: BENZTROPINE MESYLATE (1 MG) 1 MG TABLET PO SCH ×2 (09:02→16:25)
[2022-04-30] MEDS: PANTOPRAZOLE 40 MG TABLET.DR PO SCH (09:02)
[2022-04-30] MEDS: ASCORBIC ACID 500 MG TABLET PO SCH (09:03)
[2022-04-30] MEDS: HALOPERIDOL 5 MG TABLET PO SCH ×3 (09:03→16:25)
[2022-04-30] MEDS: CLOPIDOGREL BISULFATE 75 MG TABLET PO SCH (09:03)
[2022-04-30] MEDS: ZINC SULFATE 220 MG CAPSULE PO SCH (09:03)
[2022-04-30] MEDS: FERROUS SULFATE (325 MG) 325 MG/TAB TABLET PO SCH (09:03)
[2022-04-30] MEDS: METOPROLOL TARTRATE 25 MG TABLET PO SCH ×2 (09:04→21:15)
[2022-04-30] MEDS: APIXABAN 5 MG TABLET PO SCH ×2 (09:07→16:28)
--- NOTE | 2022-04-30 10:34 | NUR ---
WOUND CARE CONSULT: PT RESTING AT THIS TIME WITH DRY INTACT DRESSINGS TO LEFT ARM, RT HAND AND LOWER LEGS. REVIEWED CHART, NURSING DOCUMENTATION AND PHOTOS WHICH INDICATE SKIN TEARS TO LEFT ARM AND RT HAND WELL WOUNDS TO LOWER LEGS, PRESENT ON ADMISSION. DR BLACKMAN NOTIFIED OF DPM CONSULT REQUEST. RECOMMENDATIONS MADE FOR SKIN TEARS AND DISCUSSED WITH NURSING STAFF. MD IN AGREEMENT WITH PLAN OF CARE.
[2022-04-30 16:03] VITALS: BP 114/60
--- NOTE | 2022-04-30 19:15 | NUR ---
GPS RN NOTES PATIENT IN HIS ROOM RESTING COMFORTABLY. ALERT AND ORIENTED TO SELF ONLY. NO S/SX OF ACUTE DISTRESS NOTED. PATIENT IS CONFUSED, DISORGANIZED, DISORIENTED, WANDERING, COOPERATIVE TO CARE, REDIRECTABLE. SAFETY PRECAUTIONS MAINTAINED. WILL CONTINUE TO MONITOR Q15MIN ROUNDS FOR SAFETY AND BEHAVIOR.
[2022-04-30] MEDS: ATORVASTATIN 40 MG TABLET PO SCH (21:14)
[2022-04-30] MEDS: TEMAZEPAM 7.5 MG CAPSULE PO PRN (21:18)
[2022-04-30] MEDS ORDERED: HALOPERIDOL 5 MG TABLET PO SCH (22:00)
[2022-05-01 08:00] VITALS: BP 113/61
[2022-05-01] MEDS: DIVALPROEX SODIUM 250 MG TABLET.DR PO SCH ×3 (08:35→16:29)
[2022-05-01] MEDS: ASPIRIN 81 MG TAB.CHEW PO SCH (08:35)
[2022-05-01] MEDS: CLOPIDOGREL BISULFATE 75 MG TABLET PO SCH (08:35)
[2022-05-01] MEDS: PANTOPRAZOLE 40 MG TABLET.DR PO SCH (08:35)
[2022-05-01] MEDS: ASCORBIC ACID 500 MG TABLET PO SCH (08:36)
[2022-05-01] MEDS: ZINC SULFATE 220 MG CAPSULE PO SCH (08:36)
[2022-05-01] MEDS: HALOPERIDOL 5 MG TABLET PO SCH ×5 (08:36→22:00)
[2022-05-01] MEDS: METOPROLOL TARTRATE 25 MG TABLET PO SCH ×3 (08:36→21:26)
[2022-05-01] MEDS: SULFAMETH/TRIMETH 800/160 MG 1 UDTAB TABLET PO SCH ×3 (08:36→21:26)
[2022-05-01] MEDS: RIVASTIGMINE TARTRATE 1.5 MG CAPSULE PO SCH ×3 (08:36→21:26)
[2022-05-01] MEDS: BENZTROPINE MESYLATE (1 MG) 1 MG TABLET PO SCH ×2 (08:37→16:29)
[2022-05-01] MEDS: APIXABAN 5 MG TABLET PO SCH ×2 (08:40→16:30)
[2022-05-01] MEDS: FERROUS SULFATE (325 MG) 325 MG/TAB TABLET PO SCH (08:42)
[2022-05-01] MEDS: PROSOURCE / PROSTAT (PYXIS) 30 ML UDC PO SCH (08:59)
[2022-05-01] MEDS: LORAZEPAM 0.5 MG TABLET PO PRN (13:04)
[2022-05-01 16:00] VITALS: BP 117/57
--- NOTE | 2022-05-01 19:18 | NUR ---
GPS RN NOTES RECEIVED PATIENT IN BED RESTING COMFORTABLY. ALERT AND ORIENTED X3, ABLE TO MAKE NEEDS KNOWN. NO S/SX OF ACUTE DISTRESS NOTED. PATIENT APPEARS DEPRESSED, DISHEVELED, UNMOTIVATED TO SELF-CARE, DENIES SI/HI/AVH. SAFETY PRECAUTIONS MAINTAINED. WILL CONTINUE TO MONITOR Q15MIN ROUNDS FOR SAFETY AND BEHAVIOR.
[2022-05-01 20:00] VITALS: BP 108/81
[2022-05-01] MEDS: ATORVASTATIN 40 MG TABLET PO SCH ×2 (21:26→22:00)
--- NOTE | 2022-05-01 22:28 | NUR ---
GPS RN NOTES: MEDICATION REFUSAL PATIENT REFUSED NIGHT TIME SCHEDULED MEDS. DESPITE OF EXPLANATION THE IMPORTANCE OF BEING COMPLIANT. PT BECAME AGITATED. OFFERED X3. PATIENT CONTINUED TO REFUSE. WILL CONTINUE TO MONITOR PATIENT'S SAFETY.
[2022-05-02] MEDS: LORAZEPAM 0.5 MG TABLET PO PRN ×2 (04:53→20:09)
[2022-05-02 08:00] VITALS: BP 106/66
[2022-05-02] MEDS: FERROUS SULFATE (325 MG) 325 MG/TAB TABLET PO SCH ×2 (08:42→09:36)
[2022-05-02] MEDS: RIVASTIGMINE TARTRATE 1.5 MG CAPSULE PO SCH ×3 (08:42→21:15)
[2022-05-02] MEDS: DIVALPROEX SODIUM 250 MG TABLET.DR PO SCH ×4 (08:42→16:30)
[2022-05-02] MEDS: SULFAMETH/TRIMETH 800/160 MG 1 UDTAB TABLET PO SCH ×3 (08:42→21:15)
[2022-05-02] MEDS: PANTOPRAZOLE 40 MG TABLET.DR PO SCH ×2 (08:42→09:38)
[2022-05-02] MEDS: BENZTROPINE MESYLATE (1 MG) 1 MG TABLET PO SCH ×3 (08:42→16:30)
[2022-05-02] MEDS: CLOPIDOGREL BISULFATE 75 MG TABLET PO SCH ×2 (08:42→09:37)
[2022-05-02] MEDS: ASPIRIN 81 MG TAB.CHEW PO SCH ×2 (08:42→09:37)
[2022-05-02] MEDS: ZINC SULFATE 220 MG CAPSULE PO SCH ×2 (08:43→09:36)
[2022-05-02] MEDS: ASCORBIC ACID 500 MG TABLET PO SCH ×2 (08:43→09:36)
[2022-05-02] MEDS: HALOPERIDOL 5 MG TABLET PO SCH ×4 (08:43→21:50)
[2022-05-02] MEDS: APIXABAN 5 MG TABLET PO SCH ×3 (08:44→16:31)
[2022-05-02] MEDS: METOPROLOL TARTRATE 25 MG TABLET PO SCH ×3 (08:45→21:16)
[2022-05-02] MEDS: PROSOURCE / PROSTAT (PYXIS) 30 ML UDC PO SCH (09:36)
--- NOTE | 2022-05-02 11:00 | NUR ---
RN Notes: Received pt. asleep in bed, breathing is even and unlabored. Ate 100% for breakfast, at first pt. refused to take all his meds stating "I don't need it" even though it was explained on the importance. After the psychiatrist spoke to the pt. he agreed to take the meds. Pt. is disorganized and easily got irritated. Encouraged to verbalize feelings and motivated to attend group activity. Wound dressing done and needs attended and will continue to monitor for safety.
[2022-05-02 16:00] VITALS: BP 117/69
[2022-05-02 20:00] VITALS: BP 133/70
--- NOTE | 2022-05-02 20:11 | NUR ---
RN NOTES: ANXIETY PATIENT IS ANXIOUS, RESTLESS,PARANOID, PACING IN HALLWAY, WANDRING AROUND THE UNIT NON REDIRECTABLE AT THIS TIME. PRN ATIVAN 1 MG PO ADMINISTERED, WILL CONTINUE TO MONITOR.
--- NOTE | 2022-05-02 20:29 | NUR ---
RN NOTES: PATIENT AWAKE ALERT. NO S/SX OF ACUTE DISTRESS NOTED. PATIENT IS, ANXIOUS,EASILY AGITATED,, CONFUSED,PARANOID DISORGANIZED, DISORIENTED, WANDERING, UNCOOPERATIVE TO CARE, NON REDIRECTABLE. SAFETY PRECAUTIONS MAINTAINED. WILL CONTINUE TO MONITOR Q15MIN ROUNDS FOR SAFETY AND BEHAVIOR.
[2022-05-02] MEDS: ATORVASTATIN 40 MG TABLET PO SCH (21:52)
--- NOTE | 2022-05-03 06:54 | NUR ---
RN NOTES: PT. REFUSED TO CHANGE DRESSING, ENCOURGED X3 RISKS AND BENEFITES EXPLINED , PT. STRONGLY REFUSED , PER PT. DRESSING IS FINE , PT. BEHAVIOR UNCOOPERTIVE , EASILY AGITATED.
[2022-05-03 08:00] VITALS: BP 116/85
[2022-05-03] MEDS: SULFAMETH/TRIMETH 800/160 MG 1 UDTAB TABLET PO SCH ×2 (08:19→20:22)
[2022-05-03] MEDS: ASCORBIC ACID 500 MG TABLET PO SCH (08:19)
[2022-05-03] MEDS: DIVALPROEX SODIUM 250 MG TABLET.DR PO SCH ×3 (08:19→16:30)
[2022-05-03] MEDS: ASPIRIN 81 MG TAB.CHEW PO SCH (08:19)
[2022-05-03] MEDS: PANTOPRAZOLE 40 MG TABLET.DR PO SCH (08:19)
[2022-05-03] MEDS: RIVASTIGMINE TARTRATE 1.5 MG CAPSULE PO SCH ×2 (08:19→21:07)
[2022-05-03] MEDS: HALOPERIDOL 5 MG TABLET PO SCH ×3 (08:20→22:14)
[2022-05-03] MEDS: CLOPIDOGREL BISULFATE 75 MG TABLET PO SCH (08:20)
[2022-05-03] MEDS: BENZTROPINE MESYLATE (1 MG) 1 MG TABLET PO SCH ×2 (08:20→16:30)
[2022-05-03] MEDS: FERROUS SULFATE (325 MG) 325 MG/TAB TABLET PO SCH (08:20)
[2022-05-03] MEDS: ZINC SULFATE 220 MG CAPSULE PO SCH (08:20)
[2022-05-03] MEDS: APIXABAN 5 MG TABLET PO SCH ×2 (08:21→16:31)
[2022-05-03] MEDS: PROSOURCE / PROSTAT (PYXIS) 30 ML UDC PO SCH (08:21)
[2022-05-03] MEDS: METOPROLOL TARTRATE 25 MG TABLET PO SCH ×2 (08:21→21:07)
--- NOTE | 2022-05-03 08:43 | NUR ---
Court Notification: Patient's 5250 is today and pt does not have any supportive contact.
--- NOTE | 2022-05-03 09:54 | NUR ---
Court Hearing: Patient's court hearing for 5150 was today and it was upheld for GD.
[2022-05-03 16:00] VITALS: BP 125/60
--- NOTE | 2022-05-03 17:33 | NUR ---
RN-NOTES PATIENT VISIBLE IN THE UNIT A/O X2,GUARDED CALM ,QUIET AND COOPERATIVE WITH CARE. COOPERATIVE DURING WOUND TREATMENT. COMPLIANT WITH MEDICATIONS. ALL NEEDS ATTENDED AND ANTICIPATED. AMBULATORY IN THE WITH STEADY GAIT.WILL ENDORSE TO INCOMING NURSE FOR CONTINUITY OF CARE.
--- NOTE | 2022-05-03 20:10 | NUR ---
RN NOTES: PATIENT AWAKE ALERT. NO S/SX OF ACUTE DISTRESS NOTED. PATIENT IS, ANXIOUS,EASILY AGITATED GUARDED , CONFUSED,PARANOID DISORGANIZED, DISORIENTED, WANDERING AROUND THE UNIT, UNCOOPERATIVE TO CARE, NEEDS FREQUENTLY REDIRECTIONS. SAFETY PRECAUTIONS MAINTAINED. WILL CONTINUE TO MONITOR Q15MIN ROUNDS FOR SAFETY
[2022-05-03 20:16] VITALS: BP 104/60
[2022-05-03] MEDS: ATORVASTATIN 40 MG TABLET PO SCH (22:14)
[2022-05-04] MEDS: PANTOPRAZOLE 40 MG TABLET.DR PO SCH (07:57)
[2022-05-04 08:00] VITALS: BP 100/65
[2022-05-04] MEDS: ASCORBIC ACID 500 MG TABLET PO SCH (08:25)
[2022-05-04] MEDS: SULFAMETH/TRIMETH 800/160 MG 1 UDTAB TABLET PO SCH ×2 (08:25→20:56)
[2022-05-04] MEDS: CLOPIDOGREL BISULFATE 75 MG TABLET PO SCH (08:26)
[2022-05-04] MEDS: ASPIRIN 81 MG TAB.CHEW PO SCH (08:26)
[2022-05-04] MEDS: DIVALPROEX SODIUM 250 MG TABLET.DR PO SCH ×3 (08:26→16:55)
[2022-05-04] MEDS: RIVASTIGMINE TARTRATE 1.5 MG CAPSULE PO SCH ×2 (08:26→20:56)
[2022-05-04] MEDS: APIXABAN 5 MG TABLET PO SCH ×2 (08:26→16:56)
[2022-05-04] MEDS: BENZTROPINE MESYLATE (1 MG) 1 MG TABLET PO SCH ×2 (08:26→16:55)
[2022-05-04] MEDS: HALOPERIDOL 5 MG TABLET PO SCH ×3 (08:26→21:06)
[2022-05-04] MEDS: ZINC SULFATE 220 MG CAPSULE PO SCH (08:26)
[2022-05-04] MEDS: FERROUS SULFATE (325 MG) 325 MG/TAB TABLET PO SCH (08:26)
[2022-05-04] MEDS: METOPROLOL TARTRATE 25 MG TABLET PO SCH ×2 (08:27→20:56)
[2022-05-04] MEDS: PROSOURCE / PROSTAT (PYXIS) 30 ML UDC PO SCH (08:31)
[2022-05-04] MEDS: LORAZEPAM 0.5 MG TABLET PO PRN ×2 (10:35→16:55)
--- NOTE | 2022-05-04 10:35 | NUR ---
RN-NOTES PATIENT PACING AND WONDERING TO OTHER ROOMS,REDIRECTED AND ATIVAN 1MG P.O GIVEN PRN ORDER. WILL CONT. MONITORING FOR SAFETY AND BEHAVIOR.
--- NOTE | 2022-05-04 11:35 | NUR ---
RN-NOTES PATIENT LYING IN BED INTERMITTENTLY SLEEPING,NO ACUTE DISTRESS NOTED.
[2022-05-04 16:00] VITALS: BP 123/63
--- NOTE | 2022-05-04 16:55 | NUR ---
RN-NOTES PATIENT PACING AND WONDERING TO OTHER ROOMS,REDIRECTED AND ATIVAN 1MG P.O GIVEN PRN ORDER. WILL CONT. MONITORING FOR SAFETY AND BEHAVIOR.
--- NOTE | 2022-05-04 17:55 | NUR ---
RN-NOTES PATIENT LYING IN BED AWAKE,ALERT ,CALM,NO ACUTE DISTRESS NOTED.
[2022-05-04] MEDS: NYSTATIN TOP POWDER 15 GM BOTTLE TP SCH (18:46)
--- NOTE | 2022-05-04 20:00 | NUR ---
RN NOTES :PATIENT RESTING IN ROOM AWAKE ALERT. NO S/SX OF ACUTE DISTRESS NOTED. PATIENT IS, ANXIOUS,EASILY AGITATED,, CONFUSED,PARANOID DISORGANIZED, DISORIENTED, WANDERING AROUND THE UNIT, UNCOOPERATIVE TO CARE, NEEDS FREQUENTLY REDIRECTIONS. SAFETY PRECAUTIONS MAINTAINED. WILL CONTINUE TO MONITOR Q15MIN ROUNDS FOR SAFETY AND BEHAVIOR.
[2022-05-04] MEDS: ATORVASTATIN 40 MG TABLET PO SCH (21:06)
[2022-05-04 21:42] VITALS: BP 124/62
[2022-05-05 08:00] VITALS: BP 119/59
--- NOTE | 2022-05-05 09:50 | NUR ---
RN-CO:RECEIVED PATIENT AWAKE, CONFUSED, NO S/S OF PAIN AND DISCOMFORTS. HE IS WANDERING FROM ROOM TO ROOM. AWOL RISK, OPENING MAIN DOORS. HE ATE WELL, HE NEEDS CONSTANT REDIRECTIONS AND REORIENTATION.
[2022-05-05] MEDS: PANTOPRAZOLE 40 MG TABLET.DR PO SCH (09:57)
[2022-05-05] MEDS: BENZTROPINE MESYLATE (1 MG) 1 MG TABLET PO SCH ×2 (09:58→17:10)
[2022-05-05] MEDS: DIVALPROEX SODIUM 250 MG TABLET.DR PO SCH ×3 (09:58→17:10)
[2022-05-05] MEDS: SULFAMETH/TRIMETH 800/160 MG 1 UDTAB TABLET PO SCH ×2 (09:58→21:00)
[2022-05-05] MEDS: ASPIRIN 81 MG TAB.CHEW PO SCH (09:58)
[2022-05-05] MEDS: RIVASTIGMINE TARTRATE 1.5 MG CAPSULE PO SCH ×2 (09:59→21:00)
[2022-05-05] MEDS: HALOPERIDOL 5 MG TABLET PO SCH ×3 (09:59→22:00)
[2022-05-05] MEDS: FERROUS SULFATE (325 MG) 325 MG/TAB TABLET PO SCH (09:59)
[2022-05-05] MEDS: METOPROLOL TARTRATE 25 MG TABLET PO SCH ×2 (10:00→21:00)
[2022-05-05] MEDS: PROSOURCE / PROSTAT (PYXIS) 30 ML UDC PO SCH (10:01)
[2022-05-05] MEDS: ASCORBIC ACID 500 MG TABLET PO SCH (10:01)
[2022-05-05] MEDS: ZINC SULFATE 220 MG CAPSULE PO SCH (10:01)
[2022-05-05] MEDS: CLOPIDOGREL BISULFATE 75 MG TABLET PO SCH (10:01)
[2022-05-05] MEDS: NYSTATIN TOP POWDER 15 GM BOTTLE TP SCH ×2 (10:06→17:16)
[2022-05-05] MEDS: APIXABAN 5 MG TABLET PO SCH ×2 (10:06→17:12)
[2022-05-05 16:12] VITALS: BP 130/63
[2022-05-05 19:59] VITALS: BP 105/57
[2022-05-05 20:12] VITALS: BP 105/51
--- NOTE | 2022-05-05 21:57 | NUR ---
GPS RN NOTES: MEDICATION REFUSAL PATIENT REFUSED 2100 NIGHT TIME SCHEDULED MEDS. DESPITE OF EXPLANATION THE IMPORTANCE OF BEING COMPLIANT. PT BECAME AGITATED. OFFERED X3. PATIENT CONTINUED TO REFUSE. PATIENT ALSO REFUSED VITAL SIGNS TO BE CHECKED WELL AT THIS TIME. WILL CONTINUE TO MONITOR PATIENT'S SAFETY.
[2022-05-05] MEDS: ATORVASTATIN 40 MG TABLET PO SCH (22:00)
--- NOTE | 2022-05-05 22:28 | NUR ---
GPS RN NOTES: MEDICATION REFUSAL PATIENT REFUSED 2200 NIGHT TIME SCHEDULED MEDS. DESPITE OF EXPLANATION THE IMPORTANCE OF BEING COMPLIANT. PT BECAME AGITATED, ANXIOUS AND IRRITABLE. OFFERED X3. PATIENT CONTINUED TO REFUSE. RECEIVER SETTER APPROACHED THE PATIENT WITH ANOTHER RN TO ENCOURAGE THE PATIENT TO TAKE HIS MEDICINE BUT PATIENT CONTINUED TO REFUSE AND WANTED THE NURSES TO LEAVE HIS ROOM. 2100 AND 2200 SCHEDULED MEDICATIONS WERE OPENED, OFFERED AND WASTED EXCEPT LOPRESSOR AND IT WAS RETURNED. WILL CONTINUE TO MONITOR PATIENT'S SAFETY.
--- NOTE | 2022-05-05 22:36 | NUR ---
GPS RN NOTE PATIENT REFUSED WEEKLY SKIN ASSESSMENT TONIGHT X 3 DESPITE OF EXPLANATIONS, PATIENT CONTINUED TO REFUSE. PATIENT IS UNCOOPERATIVE, EASILY AGITATED AND ANXIOUS.
--- NOTE | 2022-05-06 02:08 | NUR ---
GPS RN NOTE PATIENT WOKE UP, AGREED TO HAVE SKIN ASSESSMENT AND PICTURES TO BE DONE BUT THEN REFUSED RIGHT LEG PICTURE TO BE TAKEN. PER PATIENT," THAT'S IT, I AM TIRED NOW, I WANT TO SLEEP." SENIOR LICENSING MANAGER WAS UNABLE TO DO FULL BODY SKIN ASSESSMENT DUE TO PATIENT'S RESTLESS BEHAVIOR. PATIENT WENT BACK TO SLEEP AFTER THAT.
[2022-05-06] MEDS: PANTOPRAZOLE 40 MG TABLET.DR PO SCH (07:47)
[2022-05-06 08:00] VITALS: BP 101/50
[2022-05-06] MEDS: ZINC SULFATE 220 MG CAPSULE PO SCH (08:19)
[2022-05-06] MEDS: RIVASTIGMINE TARTRATE 1.5 MG CAPSULE PO SCH ×2 (08:20→21:12)
[2022-05-06] MEDS: HALOPERIDOL 5 MG TABLET PO SCH ×3 (08:20→22:00)
[2022-05-06] MEDS: SULFAMETH/TRIMETH 800/160 MG 1 UDTAB TABLET PO SCH ×2 (08:21→21:11)
[2022-05-06] MEDS: ASPIRIN 81 MG TAB.CHEW PO SCH (08:21)
[2022-05-06] MEDS: ASCORBIC ACID 500 MG TABLET PO SCH (08:22)
[2022-05-06] MEDS: CLOPIDOGREL BISULFATE 75 MG TABLET PO SCH (08:22)
[2022-05-06] MEDS: DIVALPROEX SODIUM 250 MG TABLET.DR PO SCH ×4 (08:22→21:12)
[2022-05-06] MEDS: BENZTROPINE MESYLATE (1 MG) 1 MG TABLET PO SCH ×2 (08:22→16:59)
[2022-05-06] MEDS: METOPROLOL TARTRATE 25 MG TABLET PO SCH ×2 (08:23→21:13)
[2022-05-06] MEDS: FERROUS SULFATE (325 MG) 325 MG/TAB TABLET PO SCH (08:24)
[2022-05-06] MEDS: APIXABAN 5 MG TABLET PO SCH ×2 (08:45→17:01)
[2022-05-06] MEDS: PROSOURCE / PROSTAT (PYXIS) 30 ML UDC PO SCH (08:48)
[2022-05-06] MEDS: NYSTATIN TOP POWDER 15 GM BOTTLE TP SCH ×2 (08:49→16:15)
--- NOTE | 2022-05-06 09:33 | NUR ---
RN-CO: Patient is awake in his room , he denied pain and discomforts. He is unmotivated to get up and go to the dining room. He looks more depressed this morning and stated " I don't care., when I asked him to get up and join the group activity. I will continue to monitor.
[2022-05-06 16:00] VITALS: BP 135/78
--- NOTE | 2022-05-06 17:43 | NUR ---
RN-CO: DR CONTRERAS MADE AWARE THAT PT'S SKIN TEAR IN HIS LEFT ARM IS BLEEDING MORE THAN USUAL . PT IS ON ELIQUIS 5 MG BID.
--- NOTE | 2022-05-06 17:55 | NUR ---
RN-CO: DR CONTRERAS RESPONDED TO APPLY PRESSURE ON THE SKIN TEAR, AND KEEP THE ELIQUIS. WILL ENDORSE TO THE NEXT SHIFT AND WILL CONTINUE TO MONITOR.
[2022-05-06 20:05] VITALS: BP 138/59
[2022-05-06 20:21] VITALS: BP 138/59
[2022-05-06] MEDS: ATORVASTATIN 40 MG TABLET PO SCH (22:00)
[2022-05-07] MEDS: PANTOPRAZOLE 40 MG TABLET.DR PO SCH (07:59)
[2022-05-07 08:00] VITALS: BP 124/50
[2022-05-07] MEDS: ASPIRIN 81 MG TAB.CHEW PO SCH (08:53)
[2022-05-07] MEDS: HALOPERIDOL 5 MG TABLET PO SCH ×3 (08:53→22:02)
[2022-05-07] MEDS: RIVASTIGMINE TARTRATE 1.5 MG CAPSULE PO SCH ×2 (08:53→21:30)
[2022-05-07] MEDS: FERROUS SULFATE (325 MG) 325 MG/TAB TABLET PO SCH (08:53)
[2022-05-07] MEDS: DIVALPROEX SODIUM 250 MG TABLET.DR PO SCH ×4 (08:53→21:30)
[2022-05-07] MEDS: ZINC SULFATE 220 MG CAPSULE PO SCH (08:53)
[2022-05-07] MEDS: SULFAMETH/TRIMETH 800/160 MG 1 UDTAB TABLET PO SCH ×2 (08:53→21:30)
[2022-05-07] MEDS: CLOPIDOGREL BISULFATE 75 MG TABLET PO SCH (08:54)
[2022-05-07] MEDS: METOPROLOL TARTRATE 25 MG TABLET PO SCH ×2 (08:54→21:35)
[2022-05-07] MEDS: ASCORBIC ACID 500 MG TABLET PO SCH (08:54)
[2022-05-07] MEDS: BENZTROPINE MESYLATE (1 MG) 1 MG TABLET PO SCH ×2 (08:55→16:29)
[2022-05-07] MEDS: PROSOURCE / PROSTAT (PYXIS) 30 ML UDC PO SCH (08:55)
[2022-05-07] MEDS: APIXABAN 5 MG TABLET PO SCH ×2 (08:56→16:30)
[2022-05-07] MEDS: NYSTATIN TOP POWDER 15 GM BOTTLE TP SCH ×2 (09:00→16:30)
--- NOTE | 2022-05-07 09:00 | NUR ---
RN NOTE- ALERT ORIENTED PERSON PLACE PURPOSE, WITHDRAWN ISOLATIVE, MED COMPLIANT DIRECTABLE
[2022-05-07] MEDS: LORAZEPAM 0.5 MG TABLET PO PRN (11:15)
--- NOTE | 2022-05-07 11:15 | NUR ---
RN NOTE- RESTLESSNESS. ATTEMPTED DOORS TO EXIT / AWOL. CONFUSED. REDIRECTED. ATIVAN 1 MG ADMINISTERED
[2022-05-07 16:00] VITALS: BP 135/58
[2022-05-07 20:00] VITALS: BP 145/73
[2022-05-07 20:12] VITALS: BP 145/73
[2022-05-07] MEDS: ATORVASTATIN 40 MG TABLET PO SCH (22:02)
[2022-05-08 08:00] VITALS: BP 128/87
[2022-05-08] MEDS: PANTOPRAZOLE 40 MG TABLET.DR PO SCH (08:42)
[2022-05-08] MEDS: ZINC SULFATE 220 MG CAPSULE PO SCH (08:47)
[2022-05-08] MEDS: SULFAMETH/TRIMETH 800/160 MG 1 UDTAB TABLET PO SCH ×2 (08:47→21:00)
[2022-05-08] MEDS: FERROUS SULFATE (325 MG) 325 MG/TAB TABLET PO SCH (08:47)
[2022-05-08] MEDS: ASCORBIC ACID 500 MG TABLET PO SCH (08:47)
[2022-05-08] MEDS: ASPIRIN 81 MG TAB.CHEW PO SCH (08:47)
[2022-05-08] MEDS: DIVALPROEX SODIUM 250 MG TABLET.DR PO SCH ×4 (08:47→21:00)
[2022-05-08] MEDS: CLOPIDOGREL BISULFATE 75 MG TABLET PO SCH (08:47)
[2022-05-08] MEDS: RIVASTIGMINE TARTRATE 1.5 MG CAPSULE PO SCH ×2 (08:47→21:00)
[2022-05-08] MEDS: METOPROLOL TARTRATE 25 MG TABLET PO SCH ×2 (08:48→21:00)
[2022-05-08] MEDS: BENZTROPINE MESYLATE (1 MG) 1 MG TABLET PO SCH ×2 (08:48→16:12)
[2022-05-08] MEDS: HALOPERIDOL 5 MG TABLET PO SCH ×3 (08:48→21:12)
[2022-05-08] MEDS: APIXABAN 5 MG TABLET PO SCH ×2 (08:49→16:14)
[2022-05-08] MEDS: PROSOURCE / PROSTAT (PYXIS) 30 ML UDC PO SCH (09:10)
[2022-05-08] MEDS: NYSTATIN TOP POWDER 15 GM BOTTLE TP SCH ×2 (09:22→16:12)
--- NOTE | 2022-05-08 10:01 | NUR ---
RN-CO: PATIENT IS COOPERATIVE TO CARE, AND REDIRECTABLE. HE IS WANDERING FROM ROOM TO ROOM. HE IS COMPLIANT WITH MEDICATIONS AND EATS WELL. WE WILL CONTINUE TO MONITOR.
[2022-05-08 16:00] VITALS: BP 109/48
--- NOTE | 2022-05-08 19:15 | NUR ---
GPS RN NOTES PATIENT IN HIS ROOM RESTING COMFORTABLY. ALERT AND ORIENTED TO SELF ONLY. NO S/SX OF ACUTE DISTRESS NOTED. PATIENT IS CONFUSED, DISORGANIZED, DISORIENTED, REDIRECTABLE. SAFETY PRECAUTIONS MAINTAINED. WILL CONTINUE TO MONITOR Q15MIN ROUNDS FOR SAFETY AND BEHAVIOR.
[2022-05-08 20:00] VITALS: BP 106/36
[2022-05-08] MEDS: ATORVASTATIN 40 MG TABLET PO SCH (21:12)
--- NOTE | 2022-05-08 22:00 | NUR ---
GPS RN NOTES: MEDICATION REFUSAL PATIENT REFUSED SCHEDULED NIGHT TIME MEDICATIONS. DESPITE OF EXPLANATION THE IMPORTANCE OF MEDICATION COMPLIANCE. PATIENT BECAME AGITATED. OFFERED X3. PATIENT CONTINUED TO REFUSE. WILL CONTINUE TO MONITOR PATIENT'S SAFETY.
[2022-05-09 08:00] VITALS: BP 99/59
[2022-05-09] MEDS: PANTOPRAZOLE 40 MG TABLET.DR PO SCH (08:45)
--- NOTE | 2022-05-09 08:51 | NUR ---
SW Discharge Note: Patient will be discharged to longterm facility [facility] [address], [place] [address]; ). Please arrange transportation at 1PM. Fuse Cutter spoke with Micaela admissions clerk at [facility]; ([phone]), who stated patient will be accepted today. Patient does not have any family to contact. Patient is alert and oriented x2 and is unable to plan for self-care. Patient denies any suicidal or homicidal ideations. Patient is aware and agreeable with discharge plans. Patient will continue to follow-up with (psychiatrist) Dr. Krueger [address] [facility] [address], [place] [address]; ([phone]) and (hotel lobby concierge) Dr. Barrientos [address] [facility] [address], [place] [address]; ([phone]). Patient presents with euthymic and congruent mood.
[2022-05-09 09:00] VITALS: BP 99/59
[2022-05-09] MEDS: METOPROLOL TARTRATE 25 MG TABLET PO SCH (09:00)
[2022-05-09] MEDS: ASCORBIC ACID 500 MG TABLET PO SCH (09:46)
[2022-05-09] MEDS: BENZTROPINE MESYLATE (1 MG) 1 MG TABLET PO SCH (09:46)
[2022-05-09] MEDS: HALOPERIDOL 5 MG TABLET PO SCH (09:46)
[2022-05-09] MEDS: RIVASTIGMINE TARTRATE 1.5 MG CAPSULE PO SCH (09:46)
[2022-05-09] MEDS: SULFAMETH/TRIMETH 800/160 MG 1 UDTAB TABLET PO SCH (09:46)
[2022-05-09] MEDS: ASPIRIN 81 MG TAB.CHEW PO SCH (09:46)
[2022-05-09] MEDS: FERROUS SULFATE (325 MG) 325 MG/TAB TABLET PO SCH (09:46)
[2022-05-09] MEDS: DIVALPROEX SODIUM 250 MG TABLET.DR PO SCH ×2 (09:46→13:10)
[2022-05-09] MEDS: ZINC SULFATE 220 MG CAPSULE PO SCH (09:46)
[2022-05-09] MEDS: CLOPIDOGREL BISULFATE 75 MG TABLET PO SCH (09:46)
[2022-05-09] MEDS: APIXABAN 5 MG TABLET PO SCH (09:47)
[2022-05-09] MEDS: PROSOURCE / PROSTAT (PYXIS) 30 ML UDC PO SCH (09:49)
[2022-05-09] MEDS: NYSTATIN TOP POWDER 15 GM BOTTLE TP SCH (09:55)
--- NOTE | 2022-05-09 13:35 | NUR ---
RN-NOTES PATIENT HAD A DISCHARGE ORDER FROM,DR. JARQUIN COVERING FOR DR. GUILLEN TODAY. ( PSYCHIATRIST),DR. PAIZ ( SAFETY INSPECTOR) MEDICALLY CLEARED PATIENT FOR DISCHARGE.REPORT WAS GIVEN TO MARGIE (STRUCTURES ENGINEER STAFF AT THE FACILITY). PATIENT LEFT THE UNIT IN STABLE CONDITION A/O X1,AMBULATORY STEADY GAIT.PATIENT DID NOT VERBALIZE SI/HI,DENIES VISUAL/AUDITORY HALLUCINATIONS AT THE TIME OF DISCHARGE.PATIENT WAS PLASTICS FABRICATION SUPERVISOR BY AMBULANCE VIA GURNEY WITH TWO STAFF ASSIST. PATIENT LEFT THE UNIT WITH ALL BELONGINGS.
== END 2022-05-09 13:45 | DRG 876 ==
LOC: ER 10:54 → GPS 17:25
PROVIDERS: ADMIT Psychiatry & Neurology Psychosomatic Medicine; ATTEND Internal Medicine
PROC: 0JBN0ZZ Excision of Right Lower Leg Subcutaneous Tissue and Fascia, Open Approach (ICD-10-PCS; principal; 2022-05-03)
PROC: 0JBN0ZZ Excision of Right Lower Leg Subcutaneous Tissue and Fascia, Open Approach (ICD-10-PCS; 2022-05-09)
DX: F25.0 Schizoaffective disorder, bipolar type (principal); F02.81 Dementia in other diseases classified elsewhere, unspecified severity, with behavioral disturbance; D68.59 Other primary thrombophilia; E44.1 Mild protein-calorie malnutrition; I82.403 Acute embolism and thrombosis of unspecified deep veins of lower extremity, bilateral; L97.919 Non-pressure chronic ulcer of unspecified part of right lower leg with unspecified severity; F29 Unspecified psychosis not due to a substance or known physiological condition; I48.91 Unspecified atrial fibrillation; Z20.822 Contact with and (suspected) exposure to COVID-19; G20 Parkinson's disease; F10.11 Alcohol abuse, in remission; F12.11 Cannabis abuse, in remission; I10 Essential (primary) hypertension; E88.09 Other disorders of plasma-protein metabolism, not elsewhere classified; I25.10 Atherosclerotic heart disease of native coronary artery without angina pectoris; E78.5 Hyperlipidemia, unspecified; E11.40 Type 2 diabetes mellitus with diabetic neuropathy, unspecified; Z79.01 Long term (current) use of anticoagulants; Z79.82 Long term (current) use of aspirin; Z79.02 Long term (current) use of antithrombotics/antiplatelets; Z79.899 Other long term (current) drug therapy; D64.9 Anemia, unspecified; E11.51 Type 2 diabetes mellitus with diabetic peripheral angiopathy without gangrene; Z91.14 Patient's other noncompliance with medication regimen; J44.9 Chronic obstructive pulmonary disease, unspecified; I70.239 Atherosclerosis of native arteries of right leg with ulceration of unspecified site
CPT/HCPCS: 36415; 70450-TC; 80048-TC; 80053-TC; 80061-TC; 80076-TC; 80164-TC; 85025-TC; 87070-TC; 87081-TC; A6253; A6403; C9803; G0480; J1630

== ENCOUNTER 2022-10-04 14:26 | Inpatient (IN) | payer MEDICARE, OTHER ==
[~2022-10-04] VITALS: Ht 185.4 cm; Wt 105.7 kg
[~2022-10-04 14:26] MED LIST changes: -ALLA266C2 TP; +AMIN30LI2 PO; +ASCO500T10 PO; -FURO20TA4 PO; -SULF1TAB48 PO; +ZINC50TA69 PO
--- NOTE | 2022-10-04 15:00 | NUR ---
receved pt came by idania from reterire room awake and alert no sob or distress hob elevated all time
--- NOTE | 2022-10-04 15:13 | NUR ---
SEEN BY DR. BECERRA
[2022-10-04] MEDS ORDERED: IV NS 0.9% 1,000 ML BAG IV ONE (15:30)
[2022-10-04 15:34] LABS: BASOPHILS % (AUTO) 0.2 % (0.0-2.0); EOSINOPHILS % (AUTO) 2.7 % (0.0-6.0); HEMATOCRIT 35 % (39-51); HEMOGLOBIN 11.6 g/dL (13.5-17.5); LYMPHOCYTES # (AUTO) 1.2 K/uL (0.8-4.8); LYMPHOCYTES % (AUTO) 21.3 % (20.0-44.0); MEAN CORPUSCULAR HGB CONC 33 g/dl (31.0-36.0); MEAN CORPUSCULAR VOLUME 85 fL (80-96); MONOCYTES # (AUTO) 0.6 K/uL (0.1-1.30); NEUTROPHILS # (AUTO) 3.7 K/uL (1.8-8.9); NEUTROPHILS % (AUTO) 65.8 % (43.0-81.0); PLATELET COUNT (AUTO) 155 K/uL (150-450); RED BLOOD CELL COUNT(AUTO) 4.14 MIL/uL (4.5-6.0); WHITE BLOOD COUNT (AUTO) 5.7 K/uL (4.3-11.0)
--- NOTE | 2022-10-04 15:49 | NUR ---
ACCU CHECK DONE 66MG/LD DR. BECERRA NOTEFED
[2022-10-04] MEDS ORDERED: ONDANSETRON HCL/PF 4 MG/2 ML VIAL IVP PRN (16:00)
[2022-10-04] MEDS ORDERED: MAGNESIUM HYDROXIDE 30 ML UDC PO PRN ×2 (16:00)
[2022-10-04] MEDS ORDERED: Z GUARD REMEDY 4 OZ OINT TP PRN (16:00)
[2022-10-04] MEDS ORDERED: MAG HYDROX/AL HYDROX/SIMETH 30 ML UDC PO PRN ×2 (16:00)
[2022-10-04] MEDS ORDERED: ACETAMINOPHEN 325 MG TABLET PO PRN ×2 (16:00)
--- NOTE | 2022-10-04 16:00 | NUR ---
EATING WILL NO N/V NOTED
[2022-10-04 16:02] LABS: ALBUMIN 3.2 g/dL (3.4-5.0); BILIRUBIN,DIRECT 0.1 mg/dL (0.0-0.2); BILIRUBIN,TOTAL 0.4 mg/dL (0.2-1.0); CALCIUM, SERUM 9.3 mg/dL (8.5-10.1); CREATININE 1.1 mg/dL (0.6-1.3); POTASSIUM 4.1 mmol/L (3.5-5.1); TOTAL PROTEIN, SERUM 7.4 g/dL (6.4-8.2)
--- NOTE | 2022-10-04 17:00 | NUR ---
PT PULL OUT IV LINE
[2022-10-04] MEDS: APIXABAN 5 MG TABLET PO SCH (17:31)
--- NOTE | 2022-10-04 17:32 | NUR ---
PT VODING FReely yellow COUDY Color UA SENT TO LAB
[2022-10-04 18:14] LABS: BILIRUBIN,URINE NEGATIVE (NEGATIVE); COLOR,URINE YELLOW (YELLOW); LEUKOCYTE ESTERASE ,URINE NEGATIVE (NEGATIVE); NITRITE, URINE NEGATIVE (NEGATIVE); PROTEIN,URINE NEGATIVE (NEGATIVE); UGLUCOSE NEGATIVE (NEGATIVE); UROBILINOGEN,URINE 0.2 EU/dL (0.2)
[2022-10-04] MEDS: DIVALPROEX SODIUM 125 MG CAP.SPRINK PO SCH (18:29)
--- NOTE | 2022-10-04 18:48 | NUR ---
WATING FOR MONITER BED
--- NOTE | 2022-10-04 19:25 | NUR ---
REPORT RECEIVED FROM CARLA MOREAU. PATIENT CAME WITH CC OF GENERALIZED WEAKNESS. PATIENT IS DEMENTED WITH RESTING TREMORS D/T PARKINSON. PATIENT IS AAOX2. WITH BOUTS OF CONFUSION. WITH IV CANNULA G20 ON RIGHT AC. ATTACHED TO MONITOR. VITALS CHECKED.
--- NOTE | 2022-10-04 19:25 | NUR ---
HAND OFF YAKOV AGUIRRE
--- NOTE | 2022-10-04 19:45 | NUR ---
VELCRO WRAP AT THE IV SITE. PATIENT TENDS TO PULL OUT LINES
[2022-10-04] MEDS: METOPROLOL TARTRATE 25 MG TABLET PO SCH (21:00)
--- NOTE | 2022-10-04 21:20 | NUR ---
BED 306-1
--- NOTE | 2022-10-04 21:28 | NUR ---
REPORT GIVEN TO CARLA ALAN. PATIENT IS GOING TO 304-1 INSTEAD OF 306-1. ADMITTING INFORMED
--- NOTE | 2022-10-04 21:45 | NUR ---
RN RECEIVING PATIENT FROM ER NOTE PATIENT ARRIVED STABLE FROM ER TO 3W BY BY MINDY. A/FLOR2. NO S/S OF DISTRESS, BREATHING WITHOUT DIFFICULTY ON ROOM AIR. RFA IV INFILTRATED. NEW IV ACCESS GAINED AT L-HAND #20. PATIENT WAS ORIENTED TO UNIT. PATIENT GIVEN CALL ARNOLD, INSTRUCTED ON ITS USE. PATIENT'S BELONGINGS ACCOUNTED FOR, LOGGED INTO SHEET, AND PLACED IN CHART. PATIENT GIVEN SITTER. SAFETY MEASURES IN PLACE: BED LOCKED AND AT LOWEST POSITION, RAILS UP X2, CALL ARNOLD WITHIN REACH. WILL CONTINUE TO MONITOR PATIENT.
--- NOTE | 2022-10-04 21:54 | NUR ---
TRANSFER TO ROOM
[2022-10-04] MEDS: RIVASTIGMINE TARTRATE 1.5 MG CAPSULE PO SCH (22:52)
[2022-10-04] MEDS: ATORVASTATIN 40 MG TABLET PO SCH (22:52)
[2022-10-04] MEDS: IV NS 0.9% 1,000 ML IV PRN (23:21)
[2022-10-04] MEDS ORDERED: QUETIAPINE FUMARATE 25 MG TABLET PO PRN (23:30)
[2022-10-05 03:20] VITALS: BP 136/65
--- NOTE | 2022-10-05 05:51 | NUR ---
RN NOTE CONTACTED RACHEL PEREZ ([phone]) FROM WHICH THE PATIENT CAME FROM. SPOKE W/ HANSA REGARDING HAVING ADDITIONAL INFORMATION ON THE PATIENT FAXED OVER TO UNIT IN ORDER TO HAVE DOCUMENTATION FOR THE FOLLOWING: * COVID VAX STATUS * FLU VAX STATUS * PNA VAX STATUS * POLST (IF ANY) * AND ANY OTHER PERTINENT DOCUMENTATION RELATED TO PATIENT'S HEALTH. HANSA STATED SHE WILL FAX THE ABOVE MENTIONED DOCUMENTS AT HER EARLIEST CONVENIENCE. PATIENT O/W STABLE; WILL CONTINUE TO MONITOR PATIENT.
[2022-10-05 06:17] LABS: CALCIUM, SERUM 9.2 mg/dL (8.5-10.1); MAGNESIUM 1.8 mg/dL (1.8-2.4); PHOSPHORUS 2.9 mg/dL (2.5-4.9); POTASSIUM 4.3 mmol/L (3.5-5.1)
[2022-10-05 06:25] LABS: BASOPHILS % (AUTO) 0.2 % (0.0-2.0); EOSINOPHILS % (AUTO) 3.6 % (0.0-6.0); HEMATOCRIT 34 % (39-51); HEMOGLOBIN 11.2 g/dL (13.5-17.5); LYMPHOCYTES # (AUTO) 1.2 K/uL (0.8-4.8); LYMPHOCYTES % (AUTO) 22.9 % (20.0-44.0); MEAN CORPUSCULAR HGB CONC 33 g/dl (31.0-36.0); MEAN CORPUSCULAR VOLUME 85 fL (80-96); MONOCYTES # (AUTO) 0.6 K/uL (0.1-1.30); MONOCYTES % (AUTO) 10.9 % (2.0-12.0); NEUTROPHILS # (AUTO) 3.2 K/uL (1.8-8.9); NEUTROPHILS % (AUTO) 62.4 % (43.0-81.0); PLATELET COUNT (AUTO) 139 K/uL (150-450); RED BLOOD CELL COUNT(AUTO) 3.99 MIL/uL (4.5-6.0); WHITE BLOOD COUNT (AUTO) 5.1 K/uL (4.3-11.0)
--- NOTE | 2022-10-05 06:57 | NUR ---
RN CLOSING NOTE PATIENT AWAKE IN BED. A/OX2. NO S/S OF DISTRESS, BREATHING WITHOUT DIFFICULTY ON ROOM AIR. L-HAND #20 INTACT AND PATENT W/ NS 75ML/HR. SAFETY MEASURES IN PLACE: BED LOCKED AND AT LOWEST POSITION, RAILS UP X2, CALL ARNOLD WITHIN REACH. WILL ENDORSE TO NEXT SHIFT FOR DEVON.
--- NOTE | 2022-10-05 07:30 | NUR ---
RN OPENING NOTE RECEIVED PATIENT AWAKE IN BED, A/OX2. NO S/S OF DISTRESS, BREATHING WITHOUT DIFFICULTY ON ROOM AIR. L-HAND #20 INTACT AND PATENT W/ NS 75ML/HR. SAFETY MEASURES IN PLACE: BED LOCKED AND AT LOWEST POSITION, RAILS UP X2, CALL ARNOLD WITHIN REACH. WILL CONTINUE TO MONITOR PATIENT AND EXECUTE PLAN OF CARE.
[2022-10-05] MEDS: PANTOPRAZOLE 40 MG TABLET.DR PO SCH (07:36)
[2022-10-05 08:00] VITALS: BP 124/61
[2022-10-05] MEDS: RIVASTIGMINE TARTRATE 1.5 MG CAPSULE PO SCH ×2 (08:28→20:30)
[2022-10-05] MEDS: APIXABAN 5 MG TABLET PO SCH ×2 (08:31→16:12)
[2022-10-05] MEDS: METOPROLOL TARTRATE 25 MG TABLET PO SCH ×2 (08:32→20:36)
[2022-10-05] MEDS: ASPIRIN 81 MG TAB.CHEW PO SCH (08:42)
[2022-10-05] MEDS: ZINC SULFATE 220 MG CAPSULE PO SCH (08:43)
[2022-10-05] MEDS: FERROUS SULFATE (325 MG) 325 MG/TAB TABLET PO SCH (08:43)
[2022-10-05] MEDS: CLOPIDOGREL BISULFATE 75 MG TABLET PO SCH (08:43)
[2022-10-05] MEDS: ASCORBIC ACID 500 MG TABLET PO SCH (08:43)
[2022-10-05 16:00] VITALS: BP 128/78
[2022-10-05] MEDS: DIVALPROEX SODIUM 125 MG CAP.SPRINK PO SCH (17:12)
--- NOTE | 2022-10-05 18:37 | NUR ---
RN CLOSING NOTE PATIENT AWAKE IN BED. A/OX2. NO S/S OF DISTRESS, BREATHING WITHOUT DIFFICULTY ON ROOM AIR. L-HAND #20 INTACT AND PATENT W/ NS RUNNING @75ML/HR. SAFETY MEASURES IN PLACE: BED LOCKED AND AT LOWEST POSITION, RAILS UP X2, CALL ARNOLD WITHIN REACH. WILL ENDORSE TO SPIRAL BINDER RN FOR DEVON.
[2022-10-05] MEDS: IV NS 0.9% 1,000 ML IV PRN (19:40)
--- NOTE | 2022-10-05 20:00 | NUR ---
RECEIVED PATIENT IN BED, ALERT AND ORIENTED X1, CONFUSED, STABLE ON ROOM AIR, NOT IN APPARENT PAIN, INCONTINENT OF BOWEL AND BLADDER, BLE CELLULITIS, GETTING OUT OF BED, SITTER AT THE BEDSIDE FOR SAFETY, NS AT 75 ML/HR, KEPT SAFE, WILL CONTINUE TO MONITOR.
[2022-10-05] MEDS: ATORVASTATIN 40 MG TABLET PO SCH (20:30)
[2022-10-05 20:33] VITALS: BP 145/67
[2022-10-06 06:06] LABS: BASOPHILS % (AUTO) 0.2 % (0.0-2.0); EOSINOPHILS % (AUTO) 2.4 % (0.0-6.0); HEMATOCRIT 37 % (39-51); HEMOGLOBIN 12.1 g/dL (13.5-17.5); LYMPHOCYTES % (AUTO) 18.6 % (20.0-44.0); MEAN CORPUSCULAR HGB CONC 33 g/dl (31.0-36.0); MEAN CORPUSCULAR VOLUME 85 fL (80-96); MONOCYTES # (AUTO) 0.6 K/uL (0.1-1.30); MONOCYTES % (AUTO) 11.6 % (2.0-12.0); NEUTROPHILS # (AUTO) 3.7 K/uL (1.8-8.9); NEUTROPHILS % (AUTO) 67.2 % (43.0-81.0); PLATELET COUNT (AUTO) 141 K/uL (150-450); RED BLOOD CELL COUNT(AUTO) 4.37 MIL/uL (4.5-6.0); WHITE BLOOD COUNT (AUTO) 5.5 K/uL (4.3-11.0)
[2022-10-06 06:29] LABS: CALCIUM, SERUM 9.9 mg/dL (8.5-10.1); CREATININE 1.1 mg/dL (0.6-1.3); POTASSIUM 4.1 mmol/L (3.5-5.1)
--- NOTE | 2022-10-06 07:03 | NUR ---
Alert and awake, confused, room air, not in apparent distress, hostile and combative at times, removed IV line x2. BLE cellulitis, skin remained intact, offloaded, incontinent of bowel and bladder, BM x1. Sitter at the bedside for safety. Continue IVF, monitor sodium level, wound care, psych eval, PT eval and treatment.
--- NOTE | 2022-10-06 07:10 | NUR ---
RN OPENING NOTE RECEIVED PATIENT AWAKE IN BED, A/OX2. NO S/S OF DISTRESS, BREATHING WITHOUT DIFFICULTY ON ROOM AIR. R-HAND (NEW) #20 INTACT AND PATENT W/ NS 75ML/HR. (PT PULLED OUT HIS L-HAND IV THE NIGHT BEFORE PER REAL ESTATE JOB TITLES RN). SAFETY MEASURES IN PLACE: BED LOCKED AND AT LOWEST POSITION, RAILS UP X2, CALL ARNOLD WITHIN REACH. WILL CONTINUE TO MONITOR PATIENT AND EXECUTE PLAN OF CARE.
[2022-10-06] MEDS: PANTOPRAZOLE 40 MG TABLET.DR PO SCH (07:54)
[2022-10-06 08:00] VITALS: BP 98/49
[2022-10-06] MEDS: ASPIRIN 81 MG TAB.CHEW PO SCH (08:26)
[2022-10-06] MEDS: ZINC SULFATE 220 MG CAPSULE PO SCH (08:26)
[2022-10-06] MEDS: FERROUS SULFATE (325 MG) 325 MG/TAB TABLET PO SCH (08:26)
[2022-10-06] MEDS: RIVASTIGMINE TARTRATE 1.5 MG CAPSULE PO SCH ×2 (08:26→21:16)
[2022-10-06] MEDS: ASCORBIC ACID 500 MG TABLET PO SCH (08:27)
[2022-10-06] MEDS: CLOPIDOGREL BISULFATE 75 MG TABLET PO SCH (08:28)
[2022-10-06] MEDS: APIXABAN 5 MG TABLET PO SCH ×2 (08:31→17:24)
[2022-10-06] MEDS: METOPROLOL TARTRATE 25 MG TABLET PO SCH ×2 (08:52→21:16)
[2022-10-06 16:00] VITALS: BP 147/68
[2022-10-06] MEDS: DIVALPROEX SODIUM 125 MG CAP.SPRINK PO SCH (17:25)
--- NOTE | 2022-10-06 19:52 | NUR ---
MS RN OPENING NOTE PATIENT SLEEPING IN BED, ALERT/ORIENTED X 2. PATIENT STABLE ON RA, NO S/S OF DISTRESS OR SOB NOTED, BREATHING EVEN AND UNLABORED. IV ACCESS ON RIGHT HAND #20G INTACT AND INFUSING NS @ 75 ML/HR. SITTER AT BEDSIDE. SAFETY MEASURES IN PLACE: CALL LIGHT WITHIN REACH, SIDE RAILS UP X 3, BED LOCKED IN LOWEST POSITION, BED ALARM ON. WILL CONTINUE TO MONITOR PATIENT
[2022-10-06] MEDS: ATORVASTATIN 40 MG TABLET PO SCH (21:17)
--- NOTE | 2022-10-06 22:47 | NUR ---
MS RN NOTE PATIENT HAVING MULTIPLE EPISODES OF LOOSE/LIQUID STOOL. CONTACT BLACK OFF WORKER JARETT GRAHAM WITH ORDER TO COLLECT STOOL SAMPLE FOR C. DIFF. ATTEMPTED TO COLLECT STOOL HOWEVER PATIENT IS INCONTINENT AND STOOL IS ABSORBED INTO DIAPER. EXPLAINED TO PATIENT TO NOTIFY SITTER IF HE NEEDS TO HAVE A BM IN ORDER TO PLACE BED MICHAELS, PT VERBALIZED UNDERSTANDING. WILL CONTINUE TO ATTEMPT TO COLLECT STOOL Addendum: 10/07/22 at 0448 by DAVON PATINO RN LOOSE/MUSHY STOOL
--- NOTE | 2022-10-07 06:23 | NUR ---
MS RN CLOSING NOTE PATIENT SLEEPING IN BED, ALERT/ORIENTED X 2. PATIENT STABLE ON RA, NO S/S OF DISTRESS OR SOB NOTED, BREATHING EVEN AND UNLABORED. IV ACCESS ON RIGHT HAND #20G INTACT AND SALINE LOCKED. SITTER AT BEDSIDE. MEDICATIONS GIVEN ORDERED, PT NEEDS MET THROUGHOUT SHIFT. PATIENT HAD MULTIPLE EPISODES OF MUSHY/LOOSE STOOL AT THE BEGINNING OF SHIFT, PER STAINED GLASS GLAZIER DR. GRAHAM COLLECT STOOL FOR C. DIFF TESTING, ATTEMPTED MULTIPLE TIMES HOWEVER PATIENT IS INCONTINENT AND STOOL ABSORBED INTO DIAPER AND UNABLE TO COLLECT SUFFICIENT SAMPLE. ASKED PATIENT TO NOTIFY SITTER WHEN HE FEELS THE URGE FOR BM BUT PATIENT WAS STILL INCONTINENT. SAFETY MEASURES IN PLACE: CALL LIGHT WITHIN REACH, SIDE RAILS UP X 3, BED LOCKED IN LOWEST POSITION, BED ALARM ON. WILL ENDORSE TO DAYSHIFT RN FOR CONTINUITY OF CARE
[2022-10-07] MEDS: ZINC SULFATE 220 MG CAPSULE PO SCH (08:24)
[2022-10-07 08:25] VITALS: BP 105/55
[2022-10-07] MEDS: CLOPIDOGREL BISULFATE 75 MG TABLET PO SCH (08:25)
[2022-10-07] MEDS: ASPIRIN 81 MG TAB.CHEW PO SCH (08:25)
[2022-10-07] MEDS: METOPROLOL TARTRATE 25 MG TABLET PO SCH (08:25)
[2022-10-07] MEDS: ASCORBIC ACID 500 MG TABLET PO SCH (08:25)
[2022-10-07] MEDS: FERROUS SULFATE (325 MG) 325 MG/TAB TABLET PO SCH (08:25)
[2022-10-07] MEDS: PANTOPRAZOLE 40 MG TABLET.DR PO SCH (08:25)
[2022-10-07] MEDS: RIVASTIGMINE TARTRATE 1.5 MG CAPSULE PO SCH (08:25)
[2022-10-07] MEDS: APIXABAN 5 MG TABLET PO SCH (08:30)
--- NOTE | 2022-10-07 15:45 | NUR ---
DISCHARGE SUMMARY PATIENT IS A/O X2 WITH PERIODS OF CONFUSION. ON RA SATURATING WELL. PHOTOS OF THE SKIN TAKEN AND DOCUMENTED. REPORT GIVEN TO CARLA SANCHEZ AT 1540. HE IS GOING TO BACK TO [facility]. COVID TEST COLLECTED, NEGATIVE.
== END 2022-10-07 16:15 | DRG 640 ==
LOC: ER 14:33 → TELE 21:22 → MED 22:34
PROVIDERS: ADMIT Internal Medicine; ATTEND Internal Medicine
DX: E86.0 Dehydration (principal); E43 Unspecified severe protein-calorie malnutrition; N17.0 Acute kidney failure with tubular necrosis; G93.41 Metabolic encephalopathy; E87.1 Hypo-osmolality and hyponatremia; I48.0 Paroxysmal atrial fibrillation; D64.9 Anemia, unspecified; E78.5 Hyperlipidemia, unspecified; E86.1 Hypovolemia; E88.09 Other disorders of plasma-protein metabolism, not elsewhere classified; F20.9 Schizophrenia, unspecified; I25.10 Atherosclerotic heart disease of native coronary artery without angina pectoris; J44.9 Chronic obstructive pulmonary disease, unspecified; G20 Parkinson's disease; F02.80 Dementia in other diseases classified elsewhere, unspecified severity, without behavioral disturbance, psychotic disturbance, mood disturbance, and anxiety; I10 Essential (primary) hypertension; Z79.01 Long term (current) use of anticoagulants; Z79.82 Long term (current) use of aspirin; E11.51 Type 2 diabetes mellitus with diabetic peripheral angiopathy without gangrene; Z20.822 Contact with and (suspected) exposure to COVID-19; R53.1 Weakness; S81.802A Unspecified open wound, left lower leg, initial encounter; S81.801A Unspecified open wound, right lower leg, initial encounter; X58.XXXA Exposure to other specified factors, initial encounter; Y93.9 Activity, unspecified; Y92.129 Unspecified place in nursing home as the place of occurrence of the external cause
CPT/HCPCS: 36415; 70450-TC; 71045-TC; 80048-TC; 80076-TC; 82962-TC; 83735-TC; 84100-TC; 85025-TC; 87081-TC; A6253; C9803; G0378; J7030